=== PATIENT | female | born 1940 | race Caucasian/White ===

== ENCOUNTER 2018-10-13 09:33 | Emergency (ER) | payer OTHER ==
[2018-10-13] MEDS ORDERED: LEVALBUTEROL 1.25 MG/3 ML NEB ONE (09:57)
[2018-10-13] MEDS ORDERED: IPRATROPIUM BROM 0.5MG/2.5ML ONE (09:57)
[2018-10-13] MEDS ORDERED: predniSONE 20 MG TAB ONE (09:58)
[2018-10-13 10:24] LABS: Absolute Lymphocytes (CBC) 1.5 K/uL (0.7-4.9); Basophils % 0.6 % (0-1.3); Hematocrit 44.1 % (36.0-45.0); Lymphocytes % 17.4 % (15.3-44.8); MPV 7.9 fL (7.6-11.3); RBC Red Blood Cell Count 4.26 M/uL (3.86-4.86)
--- NOTE | 2018-10-13 10:33 | RAD REPORT ---
EXAM DESCRIPTION: Monty Single View10/13/2018 10:25 am CLINICAL HISTORY: Shortness of breath COMPARISON: 2018 FINDINGS: Mild bilateral pulmonary opacities. Small to moderate pleural effusions with cardiomegaly Old left clavicular fracture IMPRESSION: CHF
--- NOTE | 2018-10-13 10:45 | EKG ---
Test Date: 2018-10-13 Test Time: 10:12:38 Junior Systems Engineer: KYLE MEASUREMENT RESULTS: Intervals: Rate: 117 OH: 152 QRSD: 100 QT: 344 QTc: 479 [place]: P: 72 OH: 152 QRS: -29 T: 119 INTERPRETIVE STATEMENTS: Sinus tachycardia with frequent and consecutive premature ventricular complexes Left ventricular hypertrophy with repolarization abnormality Abnormal ECG Compared to ECG 05/17/2017 12:50:38 Ventricular premature complex(es) now present Left ventricular hypertrophy now present Sinus rhythm no longer present Myocardial infarct finding no longer present Electronically Signed On 10-13-18 10:45:18 CDT by Bc Resendiz
[2018-10-13 10:50] LABS: Albumin 3.8 g/dL (3.4-5.0); Bilirubin Direct 0.4 mg/dL (0-0.2); Bilirubin Total 1.2 mg/dL (0.2-1.0); Magnesium 1.9 mg/dL (1.8-2.4); Protein, Total 8.1 g/dL (6.4-8.2)
--- NOTE | 2018-10-13 13:56 | ER ---
Nurse's Notes [facility] Name: Dominique Mackenzie Age: 77 yrs Sex: Female : 1940 Arrival Date: 10/13/2018 Time: 09:35 Bed 6 Private MD: Ebonie Diaz Diagnosis: Chronic obstructive pulmonary disease with (acute) exacerbation Presentation: 10/13 09:37 Presenting complaint: Patient states: SOB and nonproductive cough x 1-2 weeks. Denies hb pain/fever. Transition of care: patient was not received from another setting of care. Onset of symptoms is unknown. Risk Assessment: Do you want to hurt yourself or someone else? Patient reports no desire to harm self or others. Care prior to arrival: None. 09:37 Method Of Arrival: Wheelchair hb 09:37 Acuity: AB 2 hb 09:48 Initial Sepsis Screen: Does the patient meet any 2 criteria? No. Patient's initial tw2 sepsis screen is negative. Does the patient have a suspected source of infection? Yes: Productive cough/pneumonia. Triage Assessment: 10:17 General: Appears in no apparent distress. Respiratory: Onset: The symptoms/episode tw2 began/occurred 1-2 weeks ago. Respiratory: the patient has mild shortness of breath. Historical: - Allergies: 09:37 PENICILLINS; hb - Home Meds: 09:37 duloxetine 60 mg Oral cpDR 2 caps once daily [Active]; gabapentin 300 mg Oral cap 4 hb times per day [Active]; omeprazole 40 mg Oral cpDR 1 cap once daily [Active]; Spiriva with HandiHaler inhalation [Active]; Xanax 0.5 mg Oral tab 1 tab nightly [Active]; - PMHx: 09:37 Anxiety; COPD; Depression; neuropathy; hb - PSHx: 09:37 None; hb - Immunization history:: Adult Immunizations up to date. - Social history:: Smoking status: Patient/guardian denies using tobacco. - Ebola Screening: : No symptoms or risks identified at this time. Screenin:48 Abuse screen: Denies threats or abuse. Nutritional screening: No deficits noted. tw2 Tuberculosis screening: No symptoms or risk factors identified. Fall Risk Secondary diagnosis (15 points) impaired mobility. Assessment: 10:15 General: Appears in no apparent distress. slender, Behavior is calm, cooperative, tw2 appropriate for age. Pain: Denies pain. Neuro: Level of Consciousness is awake, alert, obeys commands, Oriented to person, place, time, situation. Cardiovascular: Heart tones S1 S2 Patient's skin is warm and dry. Rhythm is sinus tachycardia. Respiratory: Reports shortness of breath at rest on exertion cough that is non-productive, Airway is patent Respiratory effort is even, unlabored, Respiratory pattern is regular, symmetrical, Breath sounds with wheezes bilaterally. GI: No signs and/or symptoms were reported involving the gastrointestinal system. Abdomen is flat, Bowel sounds present X 4 quads. : No signs and/or symptoms were reported regarding the genitourinary system. EENT: No signs and/or symptoms were reported regarding the EENT system. Derm: No signs and/or symptoms reported regarding the dermatologic system. Musculoskeletal: Range of motion: intact in all extremities. 11:21 Reassessment: Patient appears in no apparent distress at this time. No changes from tw2 previously documented assessment. Patient and/or family updated on plan of care and expected duration. Pain level reassessed. Patient is alert, oriented x 3, equal unlabored respirations, skin warm/dry/pink. 12:21 Reassessment: Patient appears in no apparent distress at this time. No changes from tw2 previously documented assessment. Patient and/or family updated on plan of care and expected duration. Pain level reassessed. Patient is alert, oriented x 3, equal unlabored respirations, skin warm/dry/pink. 13:18 Reassessment: Patient appears in no apparent distress at this time. No changes from tw2 previously documented assessment. Patient and/or family updated on plan of care and expected duration. Pain level reassessed. Patient is alert, oriented x 3, equal unlabored respirations, skin warm/dry/pink. 13:57 Reassessment: provider at bedside at this time. tw2 14:07 Reassessment: Patient appears in no apparent distress at this time. No changes from tw2 previously documented assessment. Patient and/or family updated on plan of care and expected duration. Pain level reassessed. Patient is alert, oriented x 3, equal unlabored respirations, skin warm/dry/pink. Vital Signs: 09:37 BP 135 / 102; Pulse 121; Resp 20; Temp 97.8; Pulse Ox 93% on R/A; Weight 45.36 kg; hb Height 5 ft. 2 in. (157.48 cm); Pain 0/10; 10:18 BP 113 / 61; Pulse 114; Resp 22; Pulse Ox 100% on Nebulizer Mask; tw2 11:19 BP 135 / 80; Pulse 115; Resp 22; Pulse Ox 91% on R/A; tw2 12:21 BP 131 / 71; Pulse 114; Resp 24; Pulse Ox 98% on 2 lpm NC; tw2 13:18 BP 115 / 69; Pulse 118; Resp 23; Pulse Ox 99% on 2 lpm NC; tw2 14:07 BP 125 / 66; Pulse 117; Resp 17; Pulse Ox 98% on 2 lpm NC; tw2 09:37 Body Mass Index 18.29 (45.36 kg, 157.48 cm) hb 11:19 pt placed on o2 via nc at this time, will continue to monitor tw2 ED Course: 09:35 Patient arrived in ED. mr 09:35 Ebonie Diaz MD is Private Physician. mr 09:37 Arm band placed on. hb 09:38 Triage completed. hb 09:45 Bartolo Rosa NP is PHCP. pm1 09:45 Robi Vaughan MD is Attending Physician. pm1 09:48 Jacquelyn Christensen RN is Primary Nurse. tw2 09:48 Placed in gown. Bed in low position. quality assurance monitor chassis on. Pulse ox on. NIBP on. tw2 10:10 Inserted saline lock: 24 gauge in left hand, using aseptic technique. Blood collected. tw2 Missed attempt(s): 22 gauge in right antecubital area. Bleeding controlled, band aid applied, catheter tip intact. 10:15 EKG done, by diagnostics tech. reviewed by Bartolo Rosa NP. at1 10:27 XRAY Chest (1 view) In Process Unspecified. EDMS 14:07 No provider procedures requiring assistance completed. IV discontinued, intact, tw2 bleeding controlled, No redness/swelling at site. Pressure dressing applied. Administered Medications: 10:10 Drug: predniSONE 60 mg Route: PO; tw2 12:27 Follow up: Response: No adverse reaction tw2 10:10 Drug: Xopenex 2.5 mg Route: Inhalation; tw2 10:10 Drug: AtroVENT Aerosol 0.5 mg Route: Inhalation; tw2 Outcome: 13:56 Discharge ordered by . pm1 14:07 Discharged to home via wheelchair, with family. tw2 14:07 Condition: stable 14:07 Discharge instructions given to patient, family, Instructed on discharge instructions, follow up and referral plans. medication usage, Demonstrated understanding of instructions, follow-up care, medications, Prescriptions given X 2. 14:17 Patient left the ED. tw2 Signatures: Dispatcher [employer] EDMS CaleroJuhi mr TaverasPaula, complaint evaluation supervisor EKG Tat1 Bartolo Rosa, FACILITY OPERATIONS MANAGER FACILITY OPERATIONS MANAGER pm1 Grecia Wiggins, RN RN Jacquelyn Burton RN RN tw2
--- NOTE | 2018-10-13 13:56 | EDPHYS ---
Physician Documentation [facility] Name: Dominique Mackenzie Age: 77 yrs Sex: Female : 1940 Arrival Date: 10/13/2018 Time: 09:35 Bed 6 Private MD: Ebonie Diaz ED Physician Robi Vaughan HPI: 10/13 10:48 This 77 yrs old Female presents to ER via Wheelchair with complaints of pm1 Breathing Difficulty. 10:48 The patient has shortness of breath at rest. Onset: The symptoms/episode began/occurred pm1 1 week(s) ago. Duration: The symptoms are continuous. The patient's shortness of breath is aggravated by light activity, is alleviated by inhaler. Associated signs and symptoms: Pertinent positives: non-productive cough, Pertinent negatives: chest pain, fever, nausea, vomiting, sputum. Severity of symptoms: in the emergency department the symptoms are unchanged. The patient has experienced similar episodes in the past, multiple times, today's symptoms are similar, to previous COPD exacerbation . The patient has not recently seen a physician. Historical: - Allergies: 09:37 PENICILLINS; hb - Home Meds: 09:37 duloxetine 60 mg Oral cpDR 2 caps once daily [Active]; gabapentin 300 mg Oral cap 4 hb times per day [Active]; omeprazole 40 mg Oral cpDR 1 cap once daily [Active]; Spiriva with HandiHaler inhalation [Active]; Xanax 0.5 mg Oral tab 1 tab nightly [Active]; - PMHx: 09:37 Anxiety; COPD; Depression; neuropathy; hb - PSHx: 09:37 None; hb - Immunization history:: Adult Immunizations up to date. - Social history:: Smoking status: Patient/guardian denies using tobacco. - Ebola Screening: : No symptoms or risks identified at this time. ROS: 10:48 Constitutional: Negative for fever, chills, and weight loss, Eyes: Negative for injury, pm1 pain, redness, and discharge, ENT: Negative for injury, pain, and discharge, Neck: Negative for injury, pain, and swelling, Cardiovascular: Negative for chest pain, palpitations, and edema. 10:48 Abdomen/GI: Negative for abdominal pain, nausea, vomiting, diarrhea, and constipation, Back: Negative for injury and pain, MS/Extremity: Negative for injury and deformity, Skin: Negative for injury, rash, and discoloration, Neuro: Negative for headache, weakness, numbness, tingling, and seizure. 10:48 Respiratory: Positive for cough, shortness of breath, wheezing. Exam: 10:48 Constitutional: This is a well developed, well nourished patient who is awake, alert, pm1 and in no acute distress. Head/Face: Normocephalic, atraumatic. Eyes: Pupils equal round and reactive to light, extra-ocular motions intact. Lids and lashes normal. Conjunctiva and sclera are non-icteric and not injected. Cornea within normal limits. Periorbital areas with no swelling, redness, or edema. ENT: Nares patent. No nasal discharge, no septal abnormalities noted. Tympanic membranes are normal and external auditory canals are clear. Oropharynx with no redness, swelling, or masses, exudates, or evidence of obstruction, uvula midline. Mucous membranes moist. Neck: Trachea midline, no thyromegaly or masses palpated, and no cervical lymphadenopathy. Supple, full range of motion without nuchal rigidity, or vertebral point tenderness. No Meningismus. 10:48 Cardiovascular: Regular rate and rhythm with a normal S1 and S2. No gallops, murmurs, or rubs. Normal PMI, no JVD. No pulse deficits. 10:48 Abdomen/GI: Soft, non-tender, with normal bowel sounds. No distension or tympany. No guarding or rebound. No evidence of tenderness throughout. Back: No spinal tenderness. No costovertebral tenderness. Full range of motion. Skin: Warm, dry with normal turgor. Normal color with no rashes, no lesions, and no evidence of cellulitis. MS/ Extremity: Pulses equal, no cyanosis. Neurovascular intact. Full, normal range of motion. 10:48 Chest/axilla: Inspection: normal, Palpation: is normal. 10:48 Respiratory: the patient does not display signs of respiratory distress, Respirations: normal, Breath sounds: wheezing: that is mild, is heard in the right upper lobe and left upper lobe. 10:48 Neuro: Orientation: is normal, Motor: is normal, moves all fours. Vital Signs: 09:37 BP 135 / 102; Pulse 121; Resp 20; Temp 97.8; Pulse Ox 93% on R/A; Weight 45.36 kg; hb Height 5 ft. 2 in. (157.48 cm); Pain 0/10; 10:18 BP 113 / 61; Pulse 114; Resp 22; Pulse Ox 100% on Nebulizer Mask; tw2 11:19 BP 135 / 80; Pulse 115; Resp 22; Pulse Ox 91% on R/A; tw2 12:21 BP 131 / 71; Pulse 114; Resp 24; Pulse Ox 98% on 2 lpm NC; tw2 13:18 BP 115 / 69; Pulse 118; Resp 23; Pulse Ox 99% on 2 lpm NC; tw2 14:07 BP 125 / 66; Pulse 117; Resp 17; Pulse Ox 98% on 2 lpm NC; tw2 09:37 Body Mass Index 18.29 (45.36 kg, 157.48 cm) hb 11:19 pt placed on o2 via nc at this time, will continue to monitor tw2 MDM: 09:50 Patient medically screened. pm1 11:32 Data reviewed: vital signs. pm1 10/13 09:56 Order name: Basic Metabolic Panel; Complete Time: 10:57 pm10/13 09:56 Order name: CBC with Diff pm10/13 09:56 Order name: LFT's; Complete Time: 10:57 pm1 10/13 09:56 Order name: Magnesium; Complete Time: 10:57 pm1 10/13 09:56 Order name: XRAY Chest (1 view); Complete Time: 10:57 pm1 10/13 09:56 Order name: EKG; Complete Time: 09:58 pm1 10/13 09:56 Order name: Cardiac monitoring; Complete Time: 10:15 pm10/13 09:56 Order name: EKG - Nurse/Tech; Complete Time: 10:15 pm10/13 09:56 Order name: IV Saline Lock; Complete Time: 10:15 pm10/13 09:56 Order name: Labs collected and sent; Complete Time: 10:15 pm10/13 09:56 Order name: O2 Per Protocol; Complete Time: 10:15 pm1 10/13 09:56 Order name: O2 Sat Monitoring; Complete Time: 10:15 pm1 Administered Medications: 10:10 Drug: predniSONE 60 mg Route: PO; tw2 12:27 Follow up: Response: No adverse reaction tw2 10:10 Drug: Xopenex 2.5 mg Route: Inhalation; tw2 10:10 Drug: AtroVENT Aerosol 0.5 mg Route: Inhalation; tw2 Disposition: 10/14 07:47 Co-signature as Attending Physician, Robi Vaughan MD I agree with the assessment and il plan of care. Disposition: 10/13/18 13:56 Discharged to Home. Impression: Chronic obstructive pulmonary disease with (acute) exacerbation. - Condition is Stable. - Discharge Instructions: Chronic Obstructive Pulmonary Disease, How to Use an Inhaler, Chronic Obstructive Pulmonary Disease Exacerbation. - Prescriptions for Prednisone 20 mg Oral Tablet - take 3 tablet by ORAL route once daily for 5 days; 15 tablet. Albuterol Sulfate 90 mcg/actuation - inhale 1-2 puff by INHALATION route every 4-6 hours; 1 Inhaler. - Medication Reconciliation Form, Thank You Letter, Antibiotic Education, Prescription Opioid Use form. - Follow up: Emergency Department; When: As needed; Reason: Worsening of condition. Follow up: Private Physician; When: 2 - 3 days; Reason: Recheck today's complaints, Continuance of care, Re-evaluation by your physician. - Problem is new. - Symptoms have improved. Signatures: Dispatcher [employer] EDMS Bartolo Rosa NP FOLLOW UP MANAGER pm1 Grecia Wiggins RN RN Jacquelyn Christensen RN RN tw2 Robi Vaughan MD MD wa Corrections: (The following items were deleted from the chart) 10/13 14:17 13:56 10/13/2018 13:56 Discharged to Home. Impression: Chronic obstructive pulmonary tw2 disease with (acute) exacerbation. Condition is Stable. Forms are Medication Reconciliation Form, Thank You Letter, Antibiotic Education, Prescription Opioid Use. Follow up: Emergency Department; When: As needed; Reason: Worsening of condition. Follow up: Private Physician; When: 2 - 3 days; Reason: Recheck today's complaints, Continuance of care, Re-evaluation by your physician. Problem is new. Symptoms have improved. pm1
[2018-10-13 14:29] VITALS: TEMP 97.8
[2018-10-13 14:36] VITALS: BP 125/66; O2SAT 98
== END 2018-10-13 14:17 | disposition home or self-care (01) ==
LOC: ER 09:33
DX: J44.1 Chronic obstructive pulmonary disease with (acute) exacerbation (principal); F41.9 Anxiety disorder, unspecified; F32.9 Major depressive disorder, single episode, unspecified; Z88.0 Allergy status to penicillin
CPT/HCPCS: 36415; 71045; 80048; 80076; 83735; 85025; 93005; 99285; J7512

== ENCOUNTER 2018-10-16 21:00 | Inpatient (IN) | payer OTHER ==
[2018-10-16 21:58] LABS: Arterial Blood Carboxyhemoglob 2.6 % (0-1.5); Blood Gas Oxyhemoglobin 92.2 % (94-97); Blood O2 Saturation 95.3 % (92-98.5)
[2018-10-16] MEDS ORDERED: LORazepam 2 MG/ML VIAL ONE (22:03)
[2018-10-16 23:02] LABS: Absolute Lymphocytes (CBC) 0.6 K/uL (0.7-4.9); Basophils % 0.1 % (0-1.3); Hematocrit 43.4 % (36.0-45.0); MPV 8.4 fL (7.6-11.3); RBC Red Blood Cell Count 4.09 M/uL (3.86-4.86)
[2018-10-16 23:03] LABS: Protime INR 1.6
[2018-10-16] MEDS ORDERED: NA CHLORIDE 0.9% 1,000 ML ONE (23:25)
[2018-10-17] MEDS ORDERED: CYANOCOBALAMIN 1000MCG/ML INJ ONE (00:07)
[2018-10-17 00:10] LABS: Albumin 3.7 g/dL (3.4-5.0); Bilirubin Direct 0.9 mg/dL (0-0.2); Bilirubin Total 1.5 mg/dL (0.2-1.0); Magnesium 2.6 mg/dL (1.8-2.4); Potassium 4.7 mmol/L (3.5-5.1); Protein, Total 7.5 g/dL (6.4-8.2); Troponin (Emerg Dept Use Only) 0.05 ng/mL (0.0-0.045)
[2018-10-17] MEDS ORDERED: NA CHLORIDE 0.9% 250 ML ONE (00:19)
[2018-10-17 01:14] LABS: Blood Morphology Comment NOTED (NOT SEEN); Macrocytosis 1+; Polychromasia 2+; Target Cells 1+; Urine White Blood Cell Casts OK
[2018-10-17 01:19] LABS: Platelet Estimate ADEQ
--- NOTE | 2018-10-17 02:42 | ER ---
Nurse's Notes [facility] Name: Dominique Mackenzie Age: 78 yrs Sex: Female : 1940 Arrival Date: 10/16/2018 Time: 21:01 Bed 27 Private MD: Diagnosis: Unspecified combined systolic (congestive) and diastolic (congestive) heart failure Presentation: 10/16 21:02 Presenting complaint: EMS states: Pt was here Saturday for Difficulty of Breathing, was ca1 diagnosed with Mild CHF. Today Difficulty of breathing has gotten worse. Pt also has bilateral leg swelling which was not present on Saturday. Transition of care: patient was not received from another setting of care. Onset of symptoms was October 16, 2018. Risk Assessment: Do you want to hurt yourself or someone else? Patient reports no desire to harm self or others. Initial Sepsis Screen: Does the patient meet any 2 criteria? RR > 20 per min. HR > 90 bpm. Does the patient have a suspected source of infection? Yes: Productive cough/pneumonia. Care prior to arrival: Medication(s) given: Albuterol Neb x 1, Atrovent Neb x 1, Med neb given. 21:02 Method Of Arrival: EMS: [facility] ca1 21:02 Acuity: AB 2 ca1 Triage Assessment: 21:14 General: Appears. ca1 21:30 General: Appears distressed, uncomfortable, Behavior is anxious. Pain: Denies pain. lc1 Respiratory: Airway is patent Trachea midline Respiratory effort is labored, gasping, pursed lip, using tripod position, Respiratory pattern is tachypnea Breath sounds are diminished bilaterally. Breath sounds with wheezes bilaterally. 10/17 03:39 Respiratory: Onset: The symptoms/episode began/occurred today. lc1 Historical: - Allergies: 10/16 21:13 PENICILLINS; ca1 - Home Meds: 21:13 duloxetine 60 mg Oral cpDR 2 caps once daily [Active]; omeprazole 40 mg Oral cpDR 1 cap ca1 once daily [Active]; Spiriva with HandiHaler inhalation [Active]; prednisone 20 mg Oral tab once daily [Active]; nitrofurantoin macrocrystal 100 mg Oral cap 1 cap once daily [Active]; Trelegy [Active]; Ventolin Nebulizer [Active]; - PMHx: 21:13 Anxiety; COPD; Depression; neuropathy; ca1 - Immunization history:: Adult Immunizations up to date. - Social history:: Smoking status: Patient uses tobacco products, smokes one-half pack cigarettes per day. - Ebola Screening: : Patient negative for fever greater than or equal to 101.5 degrees Fahrenheit, and additional compatible Ebola Virus Disease symptoms Patient denies exposure to infectious person Patient denies travel to an Ebola-affected area in the 21 days before illness onset No symptoms or risks identified at this time. Screenin:30 Abuse screen: Denies threats or abuse. Nutritional screening: No deficits noted. lc1 Tuberculosis screening: No symptoms or risk factors identified. Fall Risk None identified. Assessment: 21:30 General: Appears distressed, slender, well groomed, Behavior is cooperative, anxious, lc1 Reports feeling ill for > 3 days. 22:17 Pain: Denies pain. Neuro: No deficits noted. Cardiovascular: Rhythm is sinus lc1 tachycardia. Respiratory: Reports shortness of breath since saturday cough that is productive, labored breathing since Saturday. Was seen in ED, nebs given at that time along with steroids, followed up with Outside provider and obtained nebulizer that she has been using at home Airway is patent Respiratory effort is labored, gasping, pursed lip, using tripod position, Respiratory pattern is tachypnea Breath sounds are diminished bilaterally. the patient has severe shortness of breath. GI: No deficits noted. : No deficits noted. EENT: No deficits noted. Derm: Skin is bilateral legs are edematous, pale, feet are blue and cold to the touch with weak pedal pulses. patients daughter reports this just started today. Musculoskeletal: No deficits noted. 23:15 Reassessment: No changes from previously documented assessment. Patient and/or family lc1 updated on plan of care and expected duration. Pain level reassessed. Patient is alert, oriented x 3, equal unlabored respirations, skin warm/dry/pink. Patient states feeling better. bipap in place, pt resting more comfortably. 10/17 00:15 Reassessment: No changes from previously documented assessment. Patient and/or family lc1 updated on plan of care and expected duration. Pain level reassessed. Patient is alert, oriented x 3, equal unlabored respirations, skin warm/dry/pink. resting at this time, daughter remains at bedside, bipap in place. 01:15 Reassessment: No changes from previously documented assessment. Patient and/or family lc1 updated on plan of care and expected duration. Pain level reassessed. Patient is alert, oriented x 3, equal unlabored respirations, skin warm/dry/pink. bipap remains in place, patient resting, ivf infusing. 02:15 Reassessment: No changes from previously documented assessment. Patient and/or family lc1 updated on plan of care and expected duration. Pain level reassessed. Patient is alert, oriented x 3, equal unlabored respirations, skin warm/dry/pink. Patient states symptoms have improved. 03:15 Reassessment: No changes from previously documented assessment. Patient and/or family lc1 updated on plan of care and expected duration. Pain level reassessed. Patient is alert, oriented x 3, equal unlabored respirations, skin warm/dry/pink. bipap remains in place. Vital Signs: 10/16 21:14 BP 116 / 67; Pulse 118; Resp 24 S; Temp 97.5(O); Pulse Ox 98% on R/A; Weight 47.63 kg ca1 (R); Height 5 ft. 2 in. (157.48 cm) (R); Pain 2/10; 22:30 BP 118 / 86; Pulse 111; Resp 16; Pulse Ox 91% on BiPAP; 1 23:00 BP 108 / 53; Pulse 113; Resp 18; Pulse Ox 100% on BiPAP; [facility] 10/17 00:00 BP 134 / 87; Pulse 112; Resp 18; Pulse Ox 100% on BiPAP; [facility] 01:00 BP 130 / 75; Pulse 111; Resp 18; Pulse Ox 100% on BiPAP; [facility] 02:00 BP 125 / 85; Pulse 107; Resp 21; Pulse Ox 100% on BiPAP; [facility] 03:00 BP 117 / 87; Pulse 112; Resp 24; Pulse Ox 100% on BiPAP; [facility] 04:00 BP 127 / 91; Pulse 117; Resp 22; Pulse Ox 97% on 2 lpm NC; 1 10/16 21:14 Body Mass Index 19.20 (47.63 kg, 157.48 cm) ca1 ED Course: 10/16 21:01 Patient arrived in ED. ds1 21:01 Sofia Loya, ACOSTA is Primary Nurse. ca1 21:09 Triage completed. ca1 21:09 Velia Fernandez, ARLETTE [facility]. snw 21:09 Jensen Crain MD is Attending Physician. snw 21:10 Michael Thomas MD is Attending Physician. snw 21:14 Arm band placed on right wrist. ca1 21:15 Oxygen administration via nasal cannula \T\ 2L/min O2 via arrived via EMS on Room air, lc1 patient with SOB so oxygen placed Response to oxygen therapy:. 21:30 Missed attempt(s): 22 gauge in left antecubital area. Bleeding controlled, band aid lc1 applied, catheter tip intact. 21:30 Oxygen administration administration via face mask O2 via bipap placed per Provider lc1 order. 21:37 XRAY Chest (1 view) In Process Unspecified. EDMS 21:59 US LE Arterial Bilateral In Process Unspecified. EDMS 22:00 Inserted saline lock: 24 gauge in left antecubital area, using aseptic technique. ca1 22:17 Radiology exam delayed due to lab results not completed at this time. (BUN/Creatinine) vm2 IV insertion attempt and/or patient not having appropriate IV at this time. 22:30 Patient has correct armband on for positive identification. Bed in low position. Side lc1 rails up X2. Adult w/ patient. radiation monitor on. Pulse ox on. NIBP on. Door closed. Noise minimized. Lights dimmed. 22:30 No provider procedures requiring assistance completed. lc1 22:59 Radiology exam delayed due to lab results not completed at this time. (BUN/Creatinine). vm2 23:32 Inserted saline lock: 22 gauge in left upper arm, using aseptic technique. lt1 23:46 Radiology exam delayed due to lab results not completed at this time. (BUN/Creatinine). vm2 08/ 01:33 CT completed. Pt tolerated procedure poorly. Patient moved to CT via stretcher. Patient eh moved back from CT. 02:20 CT Aorta for Dissection In Process Unspecified. EDMS 02:40 Arnol Vivar DO is Hospitalizing Provider. snw 03:30 Patel cath inserted, using sterile technique, 18 Fr., by co, balloon inflated, to lc1 gravity drainage, urine specimen collected. returned cloudy urine. Patient tolerated well. 03:38 Urine Microscopic Only Sent. lc1 03:38 Urine Dipstick--Ancillary (enter results) Sent. 1 03:45 Oxygen administration via nasal cannula patient anxious and pulling bipap off face, 1 provider informed, order obtained for Ativan to help her relax. 03:50 Patient admitted, IV remains in place. 1 03:55 BIPAP Sent. [facility] 04:00 Resting quietly. 1 Administered Medications: 10/16 22:08 Drug: Ativan 1 mg Route: IVP; Site: left antecubital; 1 22:48 Follow up: Response: No adverse reaction; Anxiety decreased 1 23:58 Drug: NS 0.9% 1000 ml Route: IV; Rate: 75 ml/hr; Site: left upper arm; ca1 10/17 02:53 Follow up: IV Status: Infusion continued 1 00:17 Drug: NS 0.9% 250 ml Route: IV; Rate: bolus; Site: left upper arm; lc1 02:52 Follow up: Response: No adverse reaction; IV Status: Completed infusion 1 00:31 Drug: Cyanocobalamin 1000 mcg Route: IM; Site: left vastus lateralis; 1 02:54 Follow up: Response: No adverse reaction 1 03:49 Drug: LORazepam 1 mg Route: IVP; Site: left upper arm; lc1 03:58 Follow up: Response: Anxiety decreased [facility] Outcome: 02:40 Decision to Hospitalize by Provider. snw 03:39 Admitted to [facility] 03:39 Condition: stable 03:39 Instructed on the need for admit. 04:12 Admitted to Med/surg accompanied by nurse, via stretcher, room 205, with oxygen, Report [address] [facility] 05:32 Patient left the ED. [facility] Signatures: Dispatcher [employer] EDMS Velia Fernandez, MARKLOGIC DEVELOPER-C [employer] DEVELOPER-Csnw Jose Nicole Demi ds1 Calhoun, Lisa lc1 Ivet Aguilera Cheryl, RN RN Sonali Doe lt1 Corrections: (The following items were deleted from the chart) 10/16 21:16 21:14 BP 116 / 67; Pulse 118bpm; Resp 24bpm; Spontaneous; Pulse Ox 98% RA; Temp 97.5F ca1 Oral; ca1 22:44 22:17 General: Appears distressed, slender, well groomed, Behavior is cooperative, lc1 anxious, Reports lc1 22:46 22:17 General: Appears distressed, slender, well groomed, Behavior is cooperative, lc1 anxious, Reports lc1 22:58 22:17 Derm: Skin is bilateral legs are edematous, pale, feet are blue and cold to the lc1 touch with weak pedal pulses. patients daughter reports this just started today lc1
--- NOTE | 2018-10-17 02:43 | EDPHYS ---
Physician Documentation [facility] Name: Dominique Mackenzie Age: 78 yrs Sex: Female : 1940 Arrival Date: 10/16/2018 Time: 21:01 Bed 27 Private MD: ED Physician Michael Thomas HPI: 10/16 22:46 This 78 yrs old Female presents to ER via EMS with complaints of Breathing snw Difficulty. 22:46 The patient has shortness of breath at rest. Onset: The symptoms/episode began/occurred snw 1 week(s) ago, and became persistent. Duration: The symptoms are continuous, and are steadily getting worse. Associated signs and symptoms: Pertinent positives: cough, swelling. Severity of symptoms: At their worst the symptoms were moderate in the emergency department the symptoms are unchanged. The patient has experienced similar episodes in the past. The patient has been recently seen by a physician: the patient's primary care provider, Dr. Diaz. Historical: - Allergies: 21:13 PENICILLINS; ca1 - Home Meds: 21:13 duloxetine 60 mg Oral cpDR 2 caps once daily [Active]; omeprazole 40 mg Oral cpDR 1 cap ca1 once daily [Active]; Spiriva with HandiHaler inhalation [Active]; prednisone 20 mg Oral tab once daily [Active]; nitrofurantoin macrocrystal 100 mg Oral cap 1 cap once daily [Active]; Trelegy [Active]; Ventolin Nebulizer [Active]; - PMHx: 21:13 Anxiety; COPD; Depression; neuropathy; ca1 - Immunization history:: Adult Immunizations up to date. - Social history:: Smoking status: Patient uses tobacco products, smokes one-half pack cigarettes per day. - Ebola Screening: : Patient negative for fever greater than or equal to 101.5 degrees Fahrenheit, and additional compatible Ebola Virus Disease symptoms Patient denies exposure to infectious person Patient denies travel to an Ebola-affected area in the 21 days before illness onset No symptoms or risks identified at this time. ROS: 22:44 Eyes: Negative for injury, pain, redness, and discharge, ENT: Negative for injury, snw pain, and discharge, Neck: Negative for injury, pain, and swelling, Cardiovascular: Negative for chest pain, palpitations, and edema. 22:44 Abdomen/GI: Negative for abdominal pain, nausea, vomiting, diarrhea, and constipation, Back: Negative for injury and pain, : Negative for injury, bleeding, discharge, and swelling. 22:44 Skin: Negative for injury, rash, and discoloration, Neuro: Negative for headache, weakness, numbness, tingling, and seizure. 22:44 Constitutional: Positive for body aches, malaise, poor PO intake. 22:44 Respiratory: Positive for shortness of breath, on exertion. 22:44 MS/extremity: Positive for swelling, blue coloration. 22:44 Psych: Positive for anxiety. Exam: 22:42 Eyes: Pupils equal round and reactive to light, extra-ocular motions intact. Lids and snw lashes normal. Conjunctiva and sclera are non-icteric and not injected. Cornea within normal limits. Periorbital areas with no swelling, redness, or edema. 22:42 Neck: Trachea midline, no thyromegaly or masses palpated, and no cervical lymphadenopathy. Supple, full range of motion without nuchal rigidity, or vertebral point tenderness. No Meningismus. Chest/axilla: Normal chest wall appearance and motion. Nontender with no deformity. No lesions are appreciated. 22:42 Abdomen/GI: Soft, non-tender, with normal bowel sounds. No distension or tympany. No guarding or rebound. No evidence of tenderness throughout. Back: No spinal tenderness. No costovertebral tenderness. Full range of motion. MS/ Extremity: Pulses equal, no cyanosis. Neurovascular intact. Full, normal range of motion. Neuro: Awake and alert, GCS 15, oriented to person, place, time, and situation. Cranial nerves II-XII grossly intact. Motor strength 5/5 in all extremities. Sensory grossly intact. Cerebellar exam normal. Normal gait. Psych: Awake, alert, with orientation to person, place and time. Behavior, mood, and affect are within normal limits. 22:42 Constitutional: The patient appears alert, awake, anxious, frail, dry, lower extremities with edema and blue coloration, no temperature discrepancy noted 22:42 Head/face: mild circumoral cyanosis. 22:42 ENT: Mouth: Oral mucosa: dry. 22:42 Cardiovascular: Rate: tachycardic, Heart sounds: normal, Edema: pedal edema, that is moderate. 22:42 Respiratory: the patient does not display signs of respiratory distress, Respirations: normal, Breath sounds: are clear throughout, Respiratory rate: 24 22:42 Skin: as noted. Vital Signs: 21:14 BP 116 / 67; Pulse 118; Resp 24 S; Temp 97.5(O); Pulse Ox 98% on R/A; Weight 47.63 kg ca1 (R); Height 5 ft. 2 in. (157.48 cm) (R); Pain 2/10; 22:30 BP 118 / 86; Pulse 111; Resp 16; Pulse Ox 91% on BiPAP; lc1 23:00 BP 108 / 53; Pulse 113; Resp 18; Pulse Ox 100% on BiPAP; 1 10/17 00:00 BP 134 / 87; Pulse 112; Resp 18; Pulse Ox 100% on BiPAP; 1 01:00 BP 130 / 75; Pulse 111; Resp 18; Pulse Ox 100% on BiPAP; 1 02:00 BP 125 / 85; Pulse 107; Resp 21; Pulse Ox 100% on BiPAP; [facility] 03:00 BP 117 / 87; Pulse 112; Resp 24; Pulse Ox 100% on BiPAP; 1 04:00 BP 127 / 91; Pulse 117; Resp 22; Pulse Ox 97% on 2 lpm NC; [facility] 10/16 21:14 Body Mass Index 19.20 (47.63 kg, 157.48 cm) ca1 MDM: 10/16 21:20 Patient medically screened. snw 10/17 01:44 Data reviewed: vital signs, nurses notes, EMS record, old medical records, lab test snw result(s), EKG, radiologic studies. Awaiting: CT scan results. 02:38 Data interpreted: Pulse oximetry: on room air is 95 %. on arrival. Counseling: I had a snw detailed discussion with the patient and/or guardian regarding: the historical points, exam findings, and any diagnostic results supporting the discharge/admit diagnosis, the presence of at least one elevated blood pressure reading (>120/80) during this emergency department visit, lab results, radiology results, the need for further work-up and treatment in the hospital. Physician consultation: Arnol Vivar DO was called at 02:39, was contacted at 02:39, regarding admission, to the telemetry unit. 10/16 21:20 Order name: Basic Metabolic Panel; Complete Time: 00:13 snw 10/16 21:20 Order name: CBC with Diff; Complete Time: 01:24 snw 10/16 21:20 Order name: LFT's; Complete Time: 00:14 snw 10/16 21:20 Order name: Magnesium; Complete Time: 00:14 snw 10/16 21:20 Order name: NT PRO-BNP; Complete Time: 00:14 snw 10/16 21:20 Order name: PT-INR; Complete Time: 23:21 snw 10/16 21:20 Order name: Troponin (emerg Dept Use Only); Complete Time: 00:14 snw 10/16 21:20 Order name: Blood Culture Adult (2) snw 10/16 21:20 Order name: ABG; Complete Time: 22:04 snw 10/16 23:16 Order name: CBC Smear Scan; Complete Time: 01:24 EDMS 10/17 02:53 Order name: Lipase; Complete Time: 04:32 snw 10/17 03:26 Order name: Urine Dipstick--Ancillary (enter results) cm6 10/17 03:27 Order name: Urine Microscopic Only cm6 10/17 04:10 Order name: Urine Microscopic Only; Complete Time: 04:32 EDMS 10/16 21:20 Order name: US LE Arterial Bilateral; Complete Time: 16:19 snw 10/16 21:20 Order name: XRAY Chest (1 view); Complete Time: 16:19 snw 10/16 21:20 Order name: EKG; Complete Time: 21:21 snw 10/16 21:20 Order name: Cardiac monitoring; Complete Time: 21:38 snw 10/16 21:20 Order name: EKG - Nurse/Tech; Complete Time: 21:38 snw 10/16 21:20 Order name: IV Saline Lock; Complete Time: 23:09 snw 10/16 21:20 Order name: Labs collected and sent; Complete Time: 23:09 snw 10/16 21:20 Order name: O2 Per Protocol; Complete Time: 21:38 snw 10/16 21:20 Order name: BIPAP snw 10/16 21:51 Order name: CT Aorta for Dissection; Complete Time: 16:19 snw 10/17 04:11 Order name: Urine Dipstick-Ancillary; Complete Time: 04:32 EDMS 10/16 21:20 Order name: O2 Sat Monitoring; Complete Time: 21:38 snw 10/17 00:31 Order name: Patel; Complete Time: 03:37 snw Administered Medications: 10/16 22:08 Drug: Ativan 1 mg Route: IVP; Site: left antecubital; lc1 22:48 Follow up: Response: No adverse reaction; Anxiety decreased lc1 23:58 Drug: NS 0.9% 1000 ml Route: IV; Rate: 75 ml/hr; Site: left upper arm; ca1 10/17 02:53 Follow up: IV Status: Infusion continued lc1 00:17 Drug: NS 0.9% 250 ml Route: IV; Rate: bolus; Site: left upper arm; lc1 02:52 Follow up: Response: No adverse reaction; IV Status: Completed infusion lc1 00:31 Drug: Cyanocobalamin 1000 mcg Route: IM; Site: left vastus lateralis; lc1 02:54 Follow up: Response: No adverse reaction lc1 03:49 Drug: LORazepam 1 mg Route: IVP; Site: left upper arm; lc1 03:58 Follow up: Response: Anxiety decreased lc1 Disposition: 07:00 Co-signature as Attending Physician, Michael Thomas MD Available for consultation at ps1 all times . Disposition: 10/17/18 02:40 Hospitalization ordered by Arnol Vivar for Inpatient Admission. Preliminary diagnosis is Unspecified combined systolic (congestive) and diastolic (congestive) heart failure. - Bed requested for Telemetry/MedSurg (Inpatient). - Status is Inpatient Admission. lc1 - Condition is Stable. - Problem is an acute exacerbation. - Symptoms have worsened. UTI on Admission? No Signatures: Dispatcher [facility] Desiree Scruggs RN RN mw Velia Fernandez, [employer]FFER-Csnw Sandra Moscoso lc1 Michael Thomas MD MD ps1 Sofia Loya RN RN ca1 Corrections: (The following items were deleted from the chart) 03:05 02:40 Hospitalization Ordered by Arnol Vivar DO for Inpatient Admission. Preliminary diagnosis is Unspecified combined systolic (congestive) and diastolic (congestive) heart failure. Bed requested for Telemetry/MedSurg (Inpatient). Status is Inpatient Admission. Condition is Stable. Problem is an acute exacerbation. Symptoms have worsened. UTI on Admission? No. snw 05:32 03:05 10/17/2018 02:40 Hospitalization Ordered by Arnol Vivar DO for Inpatient lc1 Admission. Preliminary diagnosis is Unspecified combined systolic (congestive) and diastolic (congestive) heart failure. Bed requested for Telemetry/MedSurg (Inpatient). Status is Inpatient Admission. Condition is Stable. Problem is an acute exacerbation. Symptoms have worsened. UTI on Admission? No. mw
--- NOTE | 2018-10-17 03:24 | P.HP ---
Certification for Inpatient Patient admitted to: Inpatient With expected LOS: >2 Midnights Patient will require the following post-hospital care: Half-Way Practitioner: I am a practitioner with admitting privileges, knowledge of patient current condition, hospital course, and medical plan of care. Services: Services provided to patient in accordance with Admission requirements found in Title 42 Section 412.3 of the Code of Federal Regulations Patient History Date of Service: 10/17/18 Primary Care Provider: Dr. Diaz; Pulmonary-Dr. Akbar Reason for admission: Shortness of breath History of Present Illness: 78-year-old female presented to the emergency room with shortness of breath. Patient was brought in by daughter. Patient with underlying history of COPD, depression with anxiety, GERD, alcohol/ tobacco abuse. Daughter reports the patient was seen early this past week for shortness of breath. She was diagnose with COPD exacerbation and sent home with oral steroids. Since that time she has had increasing shortness of breath. She has been very weak. She has had poor intake. Yesterday was her birthday. Patient continues to drink alcohol regularly. No mention of cough, chest pain. She came to the ER for further evaluation. In the ER patient evaluated. Patient appeared tachypneic and tachycardic initially. Patient required BiPAP in the emergency room. Initial ABG showed a pH is 7.4 with a pCO2 of 33 an O2 of 86. On lab white count 10, hemoglobin 14.8 with a platelet count of 225. Sodium 127, potassium 5.7. BUN of 54, creatinine 1.75 with a GFR of 28. Glucose 121. Total bilirubin 1.5, AST 792, ALT of 373. Troponin 0.[address] [place] [address] angiogram showed diffuse emphysema with small bilateral pleural effusion. No evidence of pulmonary embolism or aortic aneurysm or dissection noted. Mild cardiomegaly noted. Reflux of contrast into the hepatic vein likely indicates right heart strain. Patient with history of remote cholecystectomy and appendectomy. PVD noted as well. Due to nature of her symptoms the patient was given IV fluid bolus in the emergency room. Patient was admitted for further evaluation and treatment. When I saw the patient ER, she was on BiPAP. She was alert but with increased fatigue. Allergies Penicillins Allergy (Intermediate, Verified 02/11/13 17:49) Itching/Hives/Rash Home medications list reviewed: Yes Home Medications: Tiotropium [Spiriva Handihaler*] 18 mcg IH DAILY 03/09/12 ALPRAZolam [Xanax*] 0.5 mg PO BIDP PRN 05/10/13 Duloxetine [Cymbalta *] 60 mg PO BEDTIME 05/10/13 Gabapentin [Gralise] 300 mg PO QID 04/20/16 Melatonin 2 tab PO BEDTIME 04/20/16 B12/Levomefolate Calcium/B-6 [Folbic Rf Tablet] 1 each PO DAILY #30 tablet 04/21 Magnesium Oxide [Mag 0X*] 400 mg PO BID #60 tab 04/21/16 Pantoprazole [Protonix Tab*] 40 mg PO DAILYAC #30 tab 04/21/16 Thiamine HCl 100 mg PO DAILY #30 tablet 04/21/16 Albuterol Sulfate [Proair Hfa] 8.5 gm IH TID PRN #1 hfa.aer.ad 10/05/16 Diphenox/Atropine [Lomotil*] 1 tab PO QID PRN #15 tab 10/05/16 Ensure Enlive 237 ml PO TID #90 can 10/05/16 Nicotine [Nicoderm*] 21 mg TD DAILY #30 10/05/16 metroNIDAZOLE [Flagyl] 500 mg PO Q8H #42 tablet 10/05/16 predniSONE [Prednisone*] 20 mg PO SEECOM #15 tab 10/05/16 traMADol HCL [Ultram*] 50 mg PO TID PRN #15 tab 10/05/16 - Past Medical/Surgical History Diabetic: No -: COPD -: Depression with anxiety -: History of breast cancer -: Neuropathy -: GERD -: Tobacco abuse -: Hypokalemia -: Alcohol abuse -: Cholecystectomy -: Appendectomy -: Right mastectomy Psychosocial/ Personal History: Patient is a , she has 3 children. She lives by herself. - Family History Mother -: Other (see notes) Notes: Dementia and Alzheimers - Social History Smoking Status: Heavy Tobacco smoker (>10 cigarettes/day) Smoking therapy provided: No Patient receptive to therapy: No Alcohol use: Yes CD- Drugs: No Caffeine use: Yes Place of Residence: Home Review of Systems General: Weakness, Malaise, As per HPI Eyes: Unremarkable ENT: Unremarkable Respiratory: Shortness of Breath, Wheezing, As per HPI Cardiovascular: Edema, As per HPI Gastrointestinal: Unremarkable Genitourinary: Unremarkable Musculoskeletal: Pedal edema, As per HPI Integumentary: Unremarkable Neurological: Weakness, As per HPI Lymphatics: Unremarkable Physical Examination - Physical Exam General: Alert, Cooperative, Mild distress HEENT: Atraumatic, Normocephalic, Mucous membr. moist/pink Neck: Supple, No Thyromegaly Respiratory: Crackles/rales (Crackles to the bases), Expiratory wheezes ( Bilateral), Inspiratory wheezes (Bilateral) Cardiovascular: Abnormal pulses (Sinus tachycardia) Gastrointestinal: Normal bowel sounds, Soft and benign, Non-distended, No ascites, No tenderness, No masses, No rebound, No guarding Musculoskeletal: No erythema, No tenderness, No warmth Integumentary: No tenderness/swelling, No erythema, No warmth, No cyanosis Neurological: Normal speech, Normal strength at 5/5 x4 extr, Normal tone, Normal affect Other Physical/Emotional Findings: Patient currently on BiPAP. Arousable to pain. - Studies Laboratory Data (last 24 hrs) 10/16/18 22:42: PT 18.5 H, INR 1.60 10/16/18 22:42: WBC 10.0, Hgb 14.8, Hct 43.4, Plt Count 225 D 10/16/18 22:42: Sodium 127 L, Potassium 4.7, BUN 54 H D, Creatinine 1.75 H, Glucose 121 H, Magnesium 2.6 H D, Total Bilirubin 1.5 H, AST 792 H* D, ALT 373 H * D, Alkaline Phosphatase 90 Assessment and Plan - Plan Impression: Shortness of breath with noted bilateral pleural effusion secondary to acute on chronic diastolic CHF exacerbation complicated with COPD exacerbation Elevated liver function complicated with alcohol abuse likely related to CHF Acute renal injury with hyponatremia etiology unknown GERD Depression with anxiety Alcohol abuse Tobacco abuse Plan: Shortness of breath with noted bilateral pleural effusion secondary to acute on chronic diastolic CHF exacerbation complicated with COPD exacerbation: Patient will be admitted for further evaluation and treatment. Patient currently on BiPAP. Will continue with BiPAP and wean off to maintain sats above 90%. Will continue with COPD treatment including Brovana/albuterol/Atrovent and Spiriva. Will provide IV Solu-Medrol. Will consult pulmonology to further evaluate and address. Await further recommendation. Concerning her CHF we will hold IV fluids at this time. She was given a bolus in the emergency room. Will order echocardiogram to further evaluate. Cardiology consulted to further address. Mild elevation in troponin likely related to his CHF exacerbation. Will provide DVT prophylaxis-Lovenox. Recheck chest x-ray. Obtain and monitor lab closely. Anticipate discharge in the next 3-5 days pending clinical improvement. Patient may require skilled placement at discharge. Daytime hospitalist team will continue her care. Elevated liver function complicated with alcohol abuse likely related to CHF: Patient drinks alcohol regularly. Will check ammonia level along with alcohol level. Will obtain urine drug screen as well. Increased LFT likely related to her CHF. Will obtain abdominal ultrasound to further evaluate. Acute renal injury with hyponatremia etiology unknown: Etiology unknown. Patient given IV fluid bolus in the emergency room. Will hold fluids at this time due to her CHF. Will obtain urine sodium, urine osmolalities. Nephrology consulted to further evaluate and address. Will consider low-dose IV fluids. GERD: Continue with Protonix daily. Depression with anxiety: Restart home medication of Cymbalta. Alcohol abuse: Will provide thiamine and folic acid. Patient drinks regularly. Will need to monitor for DTs. Patient may require banana bag but will hold off due to CHF. Await recommendations from nephrology concerning fluids. Tobacco abuse: Tobacco cessation will need to be addressed Discharge Plan: Other (alf facility) Plan to discharge in: Greater than 2 days - Advance Directives Does patient have a Living Will: Yes Does patient have a Durable POA for Healthcare: No - Code Status/Comfort Care Code Status Assessed: No (Will need to address advanced directives once more alert) Time Spent Managing Pts Care (In Minutes): 55
[2018-10-17] MEDS ORDERED: LORazepam 2 MG/ML VIAL ONE (03:45)
[2018-10-17 04:09] LABS: Urine Bacteria >50 /HPF (<20); Urine Culture Reflex Order REFLEXED; Urine RBC <5 /HPF (NONE SEEN)
[2018-10-17 04:11] LABS: Urine Blood 2+ (NEG); Urine Glucose NEGATIVE (NEG); Urine Protein 1+ (NEG)
[2018-10-17] MEDS ORDERED: ONDANSETRON 4 MG/2 ML VIAL IV PRN (04:17)
[2018-10-17] MEDS ORDERED: ACETAMINOPHEN 650MG/RECT SUPP RECT PRN (04:17)
[2018-10-17] MEDS ORDERED: ACETAMINOPHEN 500 MG TAB PO PRN (04:17)
[2018-10-17] MEDS: PANTOPRAZOLE 40MG TABLET PO SCH ×2 (05:46→05:59)
[2018-10-17 06:12] LABS: Thyroid Stimulating Hormone 1.18 uIU/mL (0.360-3.740)
[2018-10-17] MEDS: IPRATROPIUM BROM 0.5MG/2.5ML NEB PRN (07:28)
[2018-10-17] MEDS: ARFORMOTEROL TARTRATE 15 MCG/2 ML VIAL.NEB NEB SCH ×2 (07:28→20:00)
[2018-10-17] MEDS: ALBUTEROL 2.5 MG/3 ML NEB SOL NEB PRN (07:28)
--- NOTE | 2018-10-17 07:36 | EKG ---
Test Date: 2018-10-16 Test Time: 21:12:16 Chemical Processing Supervisor: MEGHAT MEASUREMENT RESULTS: Intervals: Rate: 121 [place]: 160 QRSD: 108 QT: 332 QTc: 471 [place]: P: 83 [place]: 160 QRS: -37 T: 108 INTERPRETIVE STATEMENTS: Sinus tachycardia Biatrial enlargement Left axis deviation Pulmonary disease pattern Septal infarct, age undetermined Abnormal ECG Compared to ECG 10/13/2018 10:12:38 Atrial abnormality now present PVC s no longer present Electronically Signed On 10-17-18 07:35:34 CDT by Bc Resendiz
[2018-10-17] MEDS ORDERED: TIOTROPIUM 5 SPRAYS/INHALER IH SCH ×2 (08:00→09:00)
[2018-10-17] MEDS: FOLIC ACID 1 MG TABLET PO SCH (08:52)
--- NOTE | 2018-10-17 08:58 | RAD REPORT ---
EXAM DESCRIPTION: US - Lower Extremity Arterial Bilat - 10/16/2018 9:59 pm CLINICAL HISTORY: Cold feet, discoloration, leg pain Preliminary findings provided the time of the study COMPARISON: None. TECHNIQUE: Waveforms were obtained along the length of each lower extremity. Delete select Visual in spection of the lower extremity arterial tree performed. FINDINGS: No focal flow restricting lesion or occlusion identifiable. Triphasic and biphasic wavefor ms were seen along the length of each lower extremity. Atherosclerotic changes are identified in the jameson of the vessels. The systolic and end-diastolic velocity values were obtained. No substantial as ymmetry right versus left. IMPRESSION: Bilateral lower extremity peripheral arterial disease is identifiable but does not resul t in any significant degree of luminal narrowing. No occlusions.
--- NOTE | 2018-10-17 08:59 | RAD REPORT ---
EXAM DESCRIPTION: RAD - Chest Single View - 10/16/2018 9:37 pm CLINICAL HISTORY: Worsening shortness of breath, leg swelling, recent CHF diagnosis COMPARISON: Portable chest October 13 TECHNIQUE: AP portable chest image was obtained 2124 hours . FINDINGS: Lung volumes are normal. No new focal consolidations seen. Cardiomegaly is present. Vascul ature is mildly prominent in the patient has diffusely prominent interstitial markings. Small bilater al pleural effusions are present. Trachea is midline. No pneumothorax. No acute bony abnormality seen . No acute aortic findings suspected. IMPRESSION: CHF/volume overload findings are present similar to fractionally worse than the October 13 imaging.
[2018-10-17] MEDS ORDERED: THIAMINE HCL 100 MG TABLET PO SCH (09:00)
[2018-10-17] MEDS ORDERED: METHYLPREDNISOLONE 40 MG INJ IV SCH (09:00)
[2018-10-17] MEDS ORDERED: ENOXAPARIN 30 MG/0.3 ML SQ SCH (09:00)
[2018-10-17 09:16] LABS: CKMB Creatine Kinase MB 8.8 ng/mL (0.3-3.6); Troponin I 0.05 ng/mL (0.0-0.045)
--- NOTE | 2018-10-17 09:50 | CON ---
Reason For Consult: Abnormal troponin. Chief Complaint: Dyspnea. History Of Present Illness: Ms. Mackenzie is a woman, who has severe lung disease. She continues to sm larissa. Has all of the findings on chest x-rays, EKGs of pulmonary disease. She also has an echocardio gram 4 years ago that indicated decreased ejection fraction. Since she has been in the hospital, she has been receiving BiPAP and antibiotics. She is not having chest pain. An echocardiogram is pendi ng and 1 troponin is done and it is measured at 0.05. Physical Examination: General: The patient is somnolent. She was aroused and then confused and disoriented. A blood gas does not indicate any CO2 retention or other signs of respiratory acidosis. Oxygenation is slightly low. Lungs: Reveal no normal breath sounds. They all bronchial type breath sounds. I do not appreciate wheezing. A CAT scan of the abdomen and chest shows small bilateral pleural effusions, emphysematous changes. I do not have a written report from radiologist, but I do not see any evidence of a mass or dissectio n or evidence of pulmonary embolus. An EKG shows evidence of an old anteroseptal PR, sinus rhythm, p ulmonary disease pattern, right atrial abnormality, right superior axis. I believe, the patient has severe lung disease. She probably has pulmonary hypertension. A repeat echocardiogram is to be done . I do not think we are really dealing with an acute coronary syndrome. Her EKGs look very similar to what they have been. I think we are dealing with severe lung disease. She also has evidence of s evere liver disease. Her liver transaminases are very elevated close to 1000. The AST is 792. I do not know that we really have a reason for that other than perhaps alcohol abuse. It was just a few days ago that her liver transaminases were normal, so this is an acute process, and I would be worrie d that there is severe underlying liver disease. I do not see that there is any evidence of liver di sease on the CAT scan, so I would be worried about toxic injury. Her bilirubin is also elevated. Thank you very much for your kind referral of Ms. Mackenzie. I will follow her with you. STEFANO/JUSTINE Voice ID: [id number] Report ID: [id number]
--- NOTE | 2018-10-17 09:56 | RAD REPORT ---
EXAM DESCRIPTION: CT - Angio Aorta For Dissection - 10/17/2018 5:00 am CLINICAL HISTORY: 78-year-old female with shortness of breath, rule out dissection. TECHNIQUE: High-resolution axial CT imaging of the chest, abdomen and pelvis was performed following intravenous contrast administration. Sagittal and coronal reconstructed images were performed. The C T study is performed according to ALARA (as low as reasonably achievable) or ALARA/IMAGE GENTLY, with automatic adjustment of mA and/or kV according to patient size. Performed on: 10/17/2018 at 12:49 AM COMPARISON: Prior CT chest performed on 05/17/[address] abdomen and pelvis performed on 10/02/2016 FINDINGS: CHEST: Lungs: The lungs are hyperinflated. There are diffuse centrilobular emphysematous changes. There are small bibasilar pleural effusions. There is mild patchy bibasilar opacification likely representing a telectasis. Heart: The heart is mildly enlarged. There is no pericardial effusion. Mediastinum: The mediastinum is unremarkable. The mediastinal vessels are normal in caliber and con tour. There is no evidence of aortic aneurysm or aortic dissection. There is homogeneous enhancement of the pulmonary arteries. There are no intra-arterial defects identified to suggest acute or chronic pulmonary embolism. There is reflux of contrast into the hepatic veins which could indicate right he art strain. The left vertebral artery arises directly from the aortic arch, a developmental variant. There is minimal mural thrombus within the proximal aortic arch. Bones: No acute osseous abnormalities are identified. There is some motion artifact at the level of t he mid sternum. Soft tissues: There is absence of the right breast consistent with prior mastectomy. Lymphadenopathy: No pathologic hilar, mediastinal or axillary lymphadenopathy is identified. There are calcified right hilar lymph nodes consistent with prior granulomatous disease. ABDOMEN/PELVIS: Liver: The liver is normal in size and configuration. No focal hepatic abnormalities are identified. Liver attenuation is within normal limits. Spleen: The spleen is normal is size, configuration and attenuation. There are multiple splenic granu nasir. Gallbladder and bile duct: The gallbladder is surgically absent. There is no biliary ductal dilatat ion. Pancreas: The pancreas is grossly normal in size and configuration. Adrenal Glands: There is stable fullness of the left adrenal gland. The right adrenal gland is grossl y unremarkable. Kidneys: The kidneys are normal in size and configuration. There is no evidence of hydronephrosis. Th ere is no evidence of nephrolithiasis. No definite solid or cystic renal mass lesions are identified. Stomach: The stomach is grossly normal. There is a very small hiatal hernia. Bowel: The bowel gas pattern is non specific and non obstructive. Appendix: The appendix appears to be surgically absent. Free air: There is no evidence of free air. Free fluid: There is a small amount of pelvic free fluid. Vasculature: The aorta is normal in caliber and contour. There are moderate atherosclerotic calcifica tions along the abdominal aorta and branch vessels. The inferior vena cava is grossly unremarkable. Lymphadenopathy: No pathologic lymphadenopathy is identified. Bladder: The bladder is well distended and smooth in contour. Reproductive: The uterus is atrophic. Bones: No acute osseous abnormalities are identified. Soft tissues: There is mild infiltration of the subcutaneous fat surrounding the hips. There is a sma ll intramuscular lipoma along the left posterior lateral abdominal wall. IMPRESSION: 1. Diffuse centrilobular emphysema. 2. Small bilateral pleural effusions. 3. No definite CT evidence to suggest acute or chronic pulmonary embolism, aortic aneurysm or aortic dissection. 4. Mild cardiomegaly. 5. Reflux of contrast into the hepatic veins which could indicate right heart strain. 6. Prior right mastectomy. 7. Small amount of nonspecific pelvic free fluid. The etiology of this is not certain. 8. Remote cholecystectomy and probable appendectomy. 9. Stable fullness of the left adrenal gland. 10. Evidence of prior granulomatous disease. 11. Moderate atherosclerotic disease. Electronically signed by: Elza Baker DO 10/17/2018 1:53 AM CDT Due to temporary technical issues with the PACS/Fluency reporting system, reports are being signed by the in house radiologist as a courtesy to ensure prompt reporting. The interpreting radiologist is f ully responsible for the content of the report.
--- NOTE | 2018-10-17 10:24 | PN ---
Date of Progress Note: 10/17/2018 Subjective: Patient is seen and examined. Chart reviewed and case discussed with RN. Patient is ve ry somnolent, currently on BiPAP, difficult to arouse. Medications: List reviewed. Physical Examination: Vital Signs: Temperature 97.3, heart rate 102, blood pressure 109/60, respirations 18, O2 at 98% on BiPAP. General: Asleep, but arousable to sternal rub. Patient is lethargic and confused, elderly female, i ll appearing, frail. BMI 19. CV: S1, S2. Sinus tachycardia. Peripheral pulses present. Respiratory: Diminished breath sounds. Some crackles present. No wheezing or stridor. No use of a ccessory muscles. Gastrointestinal: Abdomen is soft, nontender, nondistended. Positive bowel sounds. Extremities: No clubbing, cyanosis. No peripheral edema. Neuro: Unable to properly assess, however, moves all 4 extremities. Opens eyes to sternal rub and h as normal speech. Laboratory Data: Serum osmolality is 297. Ammonia 34. CK 150, CK-MB 8.8, troponin 0.05. Triglycer ides 86, cholesterol 125, LDL 49, HDL 59. TSH 1.18, free T4 of 0.97. Hepatitis panel pending. UDS is pending. Serum alcohol level less than 3. Assessment And Plan: A 78-year-old female with: 1.Acute metabolic encephalopathy, unclear etiology, may be related to hyponatremia. 2.Hyponatremia. We will monitor and continue with IV fluids. 3.Acute kidney injury. Continue with IV fluids and avoid NSAIDs. Continue to monitor creatinine. 4.Elevated liver enzymes likely secondary to alcohol abuse and possible congestion from congestive h eart failure. We will continue to monitor. 5.Elevated troponin level likely secondary to demand mismatch and congestive heart failure. 6.Shortness of breath secondary to pleural effusions secondary to acute on chronic diastolic heart f ailure. 7.Acute on chronic diastolic congestive heart failure exacerbation. We will continue with fluid res triction, strict I's and O's, and diuretics. 8.Acute chronic obstructive pulmonary disease exacerbation. We will continue with breathing treatme nts and steroids. 9.Bilateral pleural effusions secondary to congestive heart failure. 10.Gastroesophageal reflux disease without esophagitis. 11.Depression with anxiety. 12.Alcohol abuse. Alcohol level is less than 3. 13.Nicotine dependence with cigarette smoking. We will curriculum counselor once awake. 14.Deep venous thrombosis prophylaxis with Lovenox. Awaiting Cardiology and Pulmonology evaluation. We will repeat BMP at noon. /JUSTINE Voice ID: [id number] Report ID: [id number]
[2018-10-17] MEDS ORDERED: NA CHLORIDE 0.9% 1,000 ML IV SCH (11:00)
--- NOTE | 2018-10-17 11:27 | RAD REPORT ---
EXAM DESCRIPTION: US - Abdomen Exam Complete - 10/17/2018 10:54 am CLINICAL HISTORY: Abdominal pain. elevated LFT, Acute renal injury COMPARISON: ABDOMINAL EXAM COMPLETE dated 10/12/2010BDOMINAL EXAM COMPLETE dated 10/12/2010; Angio Aor ta For Dissection dated 10/17/2018 FINDINGS: The liver appears mildly prominent in size with mild fatty infiltration suspected. There i s a subtle nodular contour to the liver parenchyma is seen. Trace free fluid is seen in Morison's kun ch. No focal liver lesions or intrahepatic biliary dilatation is seen. Small pleural effusions suspec zain. Cholecystectomy. Common bile duct is normal in caliber measuring 5 millimeters. Both kidneys are normal in size, shape and echotexture. No hydronephrosis, focal lesion of concern or perinephric fluid. The spleen is normal in size measuring 7 cm. The pancreas and aorta are obscured by bowel gas. The visualized aspects of the IVC are grossly normal. IMPRESSION: Mild fatty liver with subtle nodular contour to the liver parenchyma is seen suggesting mild/early cirrhosis.
--- NOTE | 2018-10-17 12:16 | P.CNS ---
Date of Consult: 10/17/18 Primary Care Provider: Dr. Daiz; Pulmonary-Dr. Akbar Chief Complaint: Shortness of breath History of Present Illness: Patient is 78 years of age presented to the emergency room with shortness of breath currently unresponsive on a BiPAP 3 of COPD currently she is got worse over the past week history obtained from review of the medical record as been very weak history of regular alcohol consumption the emergency room blood gases satisfactory electrolyte abnormalities renal insufficiency abnormal LFTs Allergies Penicillins Allergy (Intermediate, Verified 10/17/18 06:05) Itching/Hives/Rash Home Medications: Tiotropium [Spiriva Handihaler*] 18 mcg IH DAILY 03/09/12 ALPRAZolam [Xanax*] 0.5 mg PO BIDP PRN 05/10/13 Duloxetine [Cymbalta *] 60 mg PO BEDTIME 05/10/13 Gabapentin [Gralise] 300 mg PO QID 04/20/16 Melatonin 2 tab PO BEDTIME 04/20/16 B12/Levomefolate Calcium/B-6 [Folbic Rf Tablet] 1 each PO DAILY #30 tablet 04/21 Magnesium Oxide [Mag 0X*] 400 mg PO BID #60 tab 04/21/16 Pantoprazole [Protonix Tab*] 40 mg PO DAILYAC #30 tab 04/21/16 Thiamine HCl 100 mg PO DAILY #30 tablet 04/21/16 Albuterol Sulfate [Proair Hfa] 8.5 gm IH TID PRN #1 hfa.aer.ad 10/05/16 Diphenox/Atropine [Lomotil*] 1 tab PO QID PRN #15 tab 10/05/16 Ensure Enlive 237 ml PO TID #90 can 10/05/16 Nicotine [Nicoderm*] 21 mg TD DAILY #30 10/05/16 metroNIDAZOLE [Flagyl] 500 mg PO Q8H #42 tablet 10/05/16 predniSONE [Prednisone*] 20 mg PO SEECOM #15 tab 10/05/16 traMADol HCL [Ultram*] 50 mg PO TID PRN #15 tab 10/05/16 - Past Medical/Surgical History Diabetic: No -: COPD -: Depression with anxiety -: History of breast cancer -: Neuropathy -: GERD -: Tobacco abuse -: Hypokalemia -: Alcohol abuse -: Alcohol abuse -: Cholecystectomy -: Appendectomy -: Right mastectomy Psychosocial/ Personal History: Patient is a , she has 3 children. She lives by herself. - Family History Mother Medical History: Other (see notes) Notes: Dementia and Alzheimers - Social History Smoking Status: Current every day smoker Alcohol use: Yes CD- Drugs: No Caffeine use: Yes Place of Residence: Home Review of Systems is unable to be obtained Physical Examination Temp Pulse Resp BP Pulse Ox 97.3 F 102 H 18 109/60 98 10/17/18 08:00 10/17/18 08:00 10/17/18 08:00 10/17/18 08:00 10/17/18 08:00 General: Unresponsive Neck: Supple Respiratory: Clear to auscultation bilaterally Cardiovascular: No edema, Regular rate/rhythm Gastrointestinal: Normal bowel sounds, Soft and benign Musculoskeletal: No clubbing, No contractures Integumentary: No rashes, No breakdown Laboratory Data (last 24 hrs) 10/17/18 02:53: Lipase 160 10/16/18 22:42: PT 18.5 H, INR 1.60 10/16/18 22:42: WBC 10.0, Hgb 14.8, Hct 43.4, Plt Count 225 D 10/16/18 22:42: Sodium 127 L, Potassium 4.7, BUN 54 H D, Creatinine 1.75 H, Glucose 121 H, Magnesium 2.6 H D, Total Bilirubin 1.5 H, AST 792 H* D, ALT 373 H * D, Alkaline Phosphatase 90 - Problems (1) Shortness of breath Current Visit: Yes Status: Acute Plan: Patient is 78 years of age admitted from home with progressive shortness of breath heavy smoker or alcoholic arterial blood gases shows hypo car be a no evidence of CO2 retention oxygenation satisfactory labs are very abnormal hypokalemic abnormal liver function tests renal insufficiency patient has a macrocytosis normal white count consistent with alcohol abuse patient is on a bronchodilator at home blood pressure stable renal function pending continue with IV fluids is currently unresponsive does not need BiPAP continue pulse oximetry monitoring Dc Lovenox patient is auto anti coag
[2018-10-17 13:08] LABS: Albumin 3.5 g/dL (3.4-5.0); Bilirubin Total 1.3 mg/dL (0.2-1.0); Potassium 4.8 mmol/L (3.5-5.1); Protein, Total 6.9 g/dL (6.4-8.2)
[2018-10-17 13:50] LABS: Urine Appearance CLOUDY; Urine Bilirubin NEGATIVE (NEG); Urine Blood 1+ (NEG); Urine Color YELLOW; Urine Glucose NEGATIVE (NEG); Urine Protein TRACE (NEG); Urine Specific Gravity >=1.030 (1.005-1.030); Urine pH 5.5 (5.0-7.0)
[2018-10-17 13:51] LABS: Barbiturates NEGATIVE (NEGATIVE); Benzodiazepines NEGATIVE (NEGATIVE); Cocaine NEGATIVE (NEGATIVE); METHAMPHETAM NEGATIVE (NEGATIVE); Methadone NEGATIVE (NEGATIVE); Opiates NEGATIVE (NEGATIVE); Phencyclidine NEGATIVE (NEGATIVE); THC Cannibis NEGATIVE (NEGATIVE); Urine Microscopic Reflex ORDER UMIC
[2018-10-17 14:12] LABS: Urine Bacteria >50 /HPF (<20); Urine RBC NONE SEEN /HPF (NONE SEEN)
[2018-10-17 14:14] LABS: Urine Culture Reflex Order NOT NEEDED
[2018-10-17] MEDS: THIAMINE 200 MG/2 ML INJ IVP SCH (14:25)
--- NOTE | 2018-10-17 14:27 | EKG ---
Test Date: 2018-10-17 Test Time: 07:45:03 Court Advocate: KYLE MEASUREMENT RESULTS: Intervals: Rate: 107 LA: 158 QRSD: 104 QT: 362 QTc: 483 Davis: P: 82 LA: 158 QRS: -15 T: 128 INTERPRETIVE STATEMENTS: Sinus tachycardia T wave abnormality, consider lateral ischemia Abnormal ECG Compared to ECG 10/16/2018 21:12:16 T-wave abnormality now present Possible ischemia now present Atrial abnormality no longer present Left-axis deviation no longer present Myocardial infarct finding no longer present Electronically Signed On 10-17-18 14:26:36 CDT by Bc Resendiz
--- NOTE | 2018-10-17 14:32 | ECHO ---
HEIGHT: 5 ft 2 in WEIGHT: 105 lb 0 oz DATE OF STUDY: 10/17/[address]: Arnol Vivar DO 2-DIMENSIONAL: YES M.MODE: YES DOPPLER: YES COLOR FLOW: YES TDS: NO PORTABLE: NO DEFINITY: NO BUBBLE STUDY: NO DIAGNOSIS: CONGESTIVE HEART FAILURE CARDIAC HISTORY: CATHERIZATION: NO SURGERY: NO PROSTHETIC VALVE: NO PACEMAKER: NO MEASUREMENTS (cm) DIASTOLIC (NORMALS) SYSTOLIC (NORMALS) IVSd 0.8 (0.6-1.2) LA Diam 3.2 (1.9-4.0) LVEF 15-20% LVIDd 4.4 (3.5-5.7) LVIDs 3.8 (2.0-3.5) %FS 13% LVPWd 1.1 (0.6-1.2) Ao Diam 2.3 (2.0-3.7) 2 DIMENSIONAL ASSESSMENT: RIGHT ATRIUM: DILATED LEFT ATRIUM: DILATED RIGHT VENTRICLE: DILATED LEFT VENTRICLE: DILATED TRICUSPID VALVE: NORMAL MITRAL VALVE: MIRTRAL ANNULAR CALCIFICATION PULMONIC VALVE: NORMAL AORTIC VALVE: NORMAL PERICARDIAL EFFUSION: NONE AORTIC ROOT: NORMAL LEFT VENTRICULAR WALL MOTION: SEVERE GLOBAL HYPOKINESIS. DOPPLER/COLOR FLOW: MILD AORTIC, MITRAL AND TRICUSPID REGURGITATION. NORMAL RIGHT VENTRICULAR SYSTOLIC PRESSURE. COMMENTS: FOUR CHAMBER DILATATION. SEVERELY DEPRESSED LEFT VENTRICULAR EJECTION FRACTION. MILD AORTIC AND TRICUSPID REGURGITATION. TECHNOLOGIST: PAIGE THOMPSON
[2018-10-17] MEDS ORDERED: LOSARTAN POTASSIUM 50 MG TABLET PO SCH (16:00)
[2018-10-17 17:12] LABS: Troponin I 0.05 ng/mL (0.0-0.045)
[2018-10-17] MEDS: CARVEDILOL 3.125 MG TAB PO SCH (17:25)
[2018-10-17] MEDS: ACETYLCYST 20% 800 MG/4 ML VIAL PO SCH (21:00)
[2018-10-17] MEDS: DULOXETINE 30 MG CAP PO SCH (21:44)
--- NOTE | 2018-10-18 00:24 | CON ---
Date of Consultation: 10/17/2018 Chief Complaint: Abnormal renal function test, acute kidney injury. History Of Present Illness: The patient has history of chronic kidney disease stage 3, baseline crea tinine level is ranging from 1.05 to 1.13. During this admission, creatinine is up to 1.75. The pat ient was found to have hyponatremia, sodium of 127 and today improved to 128. Potassium level remain s within normal limits and the patient does not have metabolic acidosis. The patient is a 78-year-ol d woman with multiple medical problems. She was brought to the emergency room because of shortness o f breath. She has underlying history of COPD, anxiety, GERD, alcohol and tobacco abuse. Daughter re ports that the patient was seen in the past week for shortness of breath in the hospital. She was di agnosed with COPD exacerbation and was started on oral steroids and discharged to home. She has had poor p.o. intake and some abdominal discomfort. She did not have cough or fever. Denies chest pain. During ER evaluation, the patient was found to have tachycardia and tachypnea. She was started on BiPAP. ABG showed pH of 7.4, pCO2 of 33, PO2 86. White count 10, hemoglobin 14.8. Sodium level was 127, potassium was 5.7 on arrival to the hospital. Subsequently, potassium improved. BUN 54, creat inine 1.57. The patient had CT angiogram, which showed diffuse emphysema with small bilateral pleura l effusion. There was evidence of pulmonary emboli or aortic aneurysm. The patient had CT scan done with angiogram to rule out dissection and PE. Review of Systems: Constitutional: The patient complains of generalized weakness and shortness of breath. Eyes: Denies vision changes. Ears, Nose, Mouth, and Throat: Denies sore throat, earache. GI: Denies nausea, vomiting. : Denies dysuria, hematuria. Musculoskeletal: Denies muscle aches or joint swelling. All other systems reviewed and all are negative. Past Medical History: COPD, depression, anxiety, history of breast cancer, neuropathy, GERD, tobacco abuse, , alcohol abuse, cholecystectomy, appendicectomy, right mastectomy. Family History: Dementia, Alzheimer. Social History: Tobacco, half-a-pack per day for at least 40 years. Alcohol, denies alcohol. Denie s street drugs. Physical Examination: General: The patient is awake, lethargic. Eyes: Anicteric sclerae. EOMI. Ears, Nose, Mouth and Throat: Oral mucosa moist. No pallor. Neck: Supple. No bruits. Lungs: Wheezing bilaterally present with rhonchi. Heart: S1, S2. No pericardial friction rub. Abdomen: Soft, benign, obese, nontender. Extremities: No swelling. No cyanosis. No cellulitis. Neurological: Moving extremities. Cranial nerves intact. Psychiatric: Alert, oriented x3. Normal affect. Laboratory Data: Sodium 127, potassium 4.7, BUN 54, creatinine 1.75, glucose 121, magnesium 2.6, AST , ALT 373. Impression And Plan: 1.Shortness of breath, dyspnea, with bilateral pleural effusions secondary to acute on chronic diast olic congestive heart failure. Patient was found to have abnormal renal function tests, acute on chr onic kidney injury secondary to cardiorenal syndrome with prerenal azotemia. Monitor urine output. Hyponatremia, likely secondary to multiple causes with congestive heart failure and chronic obstructi ve pulmonary disease exacerbation. Continue normal saline for hydration as tolerated. . 2.Chronic obstructive pulmonary disease exacerbation. Continue bronchodilators and possibly antibio tics. 3.Alcohol abuse. Monitor magnesium level, phosphorus level. Increase protein intake as tolerated a nd plan is to screen the patient for proteinuria. 4.Recommend renal ultrasound for evaluation kidney size and echotexture. The patient had CT scan do ne with IV contrast. Continue Mucomyst and sodium chloride 0.9% normal saline as started. Abdominal ultrasound did not show obstructive uropathy. 5.The patient has lower urinary tract symptoms. Check urinalysis to rule out urinary tract infectio nJim HARPER/MODL Voice ID: [id number] Report ID: [id number]
[2018-10-18] MEDS: CARVEDILOL 3.125 MG TAB PO SCH ×2 (05:59→17:18)
[2018-10-18] MEDS: PANTOPRAZOLE 40MG TABLET PO SCH (06:01)
[2018-10-18 06:13] LABS: Absolute Lymphocytes (CBC) 0.9 K/uL (0.7-4.9); Basophils % 0.2 % (0-1.3); Lymphocytes % 12.6 % (15.3-44.8); MPV 8.2 fL (7.6-11.3); RBC Red Blood Cell Count 3.85 M/uL (3.86-4.86)
[2018-10-18 06:45] LABS: Albumin 3.4 g/dL (3.4-5.0); Bilirubin Total 1.1 mg/dL (0.2-1.0); Magnesium 2.9 mg/dL (1.8-2.4); Potassium 4.6 mmol/L (3.5-5.1); Protein, Total 6.8 g/dL (6.4-8.2)
[2018-10-18] MEDS: ARFORMOTEROL TARTRATE 15 MCG/2 ML VIAL.NEB NEB SCH ×2 (07:45→20:10)
[2018-10-18] MEDS: IPRATROPIUM BROM 0.5MG/2.5ML NEB PRN (07:45)
[2018-10-18] MEDS ORDERED: TIOTROPIUM 5 SPRAYS/INHALER IH SCH (08:00)
[2018-10-18] MEDS ORDERED: MIDODRINE HCL 5 MG TABLET PO SCH (09:00)
[2018-10-18] MEDS ORDERED: THIAMINE 200 MG/2 ML INJ IVP SCH (09:00)
[2018-10-18] MEDS: FOLIC ACID 1 MG TABLET PO SCH (09:56)
[2018-10-18] MEDS: THIAMINE 200 MG/2 ML INJ IVP SCH (09:56)
[2018-10-18] MEDS: ACETYLCYST 20% 800 MG/4 ML VIAL PO SCH ×2 (09:57→20:18)
--- NOTE | 2018-10-18 10:00 | PN ---
Subjective: Ms. Mackenzie is now known to have a very depressed ejection fraction, it is in the 20% ran ge, so her dyspnea is multifactorial, comes from severe lung disease with pulmonary fibrosis most lik jc as well as COPD and now severe left ventricular dysfunction documented by the echocardiogram yest brady. Attempts to give her medications to help with this are complicated by hypotension, so we are probably going to not be able to give her anything close to ideal congestive heart failure or cardiom yopathy medications. I would certainly not want to see us give her IV fluids and volume overload her . She is at least tolerating Coreg, but I do not think her renal function and low blood pressure denice l allow us to keep her on an angiotensin receptor bree or a neprilysin inhibitor. At this point, I do not think she needs diuretics. SH/MODL Voice ID: [id number] Report ID: [id number]
--- NOTE | 2018-10-18 12:18 | RAD REPORT ---
EXAM DESCRIPTION: RAD - Chest Single View - 10/18/2018 6:00 am CLINICAL HISTORY: follow up COPD, CHF Chest pain. COMPARISON: Chest Single View dated 10/16/2018; Chest Single View dated 10/13/2018; Chest Pa And Lat (2 Views) dated 05/17/2017; Chest Single View dated 01/30/2017 FINDINGS: Portable technique limits examination quality. Mild improvement in lung aeration is noted since 10/16/2018 study. The heart remains moderately promi nent in size. No displaced fractures.Right axillary clips. IMPRESSION: Mild improvement in lung aeration since 10/16/2018.
[2018-10-18] MEDS: CEFTRIAXONE/SWI 1gm 1 GM/10 ML SYR IV SCH (13:42)
--- NOTE | 2018-10-18 16:28 | PN ---
Date of Progress Note: 10/18/2018 Subjective: Patient is seen and examined. Chart reviewed and case discussed with RN and Dr. Valeri mcdaniel. Patient is doing better, much more awake and alert, ambulating with a walker. Daughter at the be dside. Treatment plan explained. All questions answered. Medication List: Reviewed. Physical Examination: Vital Signs: Temperature 97.3, heart rate 74, blood pressure 92/51, respirations 18, O2 at 95% on 2 L via nasal cannula. General: Awake, alert, oriented x3. Elderly female, frail, appears older than stated age, cachectic . BMI 18. Ill appearing. CV: S1, S2. Irregular rate and rhythm. Peripheral pulses weak. Respiratory: Diminished breath sounds. Crackles heard. No wheezing or stridor. Gastrointestinal: Abdomen is soft, nontender, nondistended. Positive bowel sounds. No guarding or rigidity. Extremities: No clubbing or cyanosis. Trace pedal edema. Neurologic: Nonfocal. Laboratory Data: Sodium 131, potassium 4.6, chloride 95, CO2 of 27, BUN 72, creatinine 1.75, glucose 119, calcium 8.7, magnesium 2.9, AST 859, ALT 565. Troponin 0.05 and 0.05. WBC 7.2, H and H of 14. 2 and 41, platelets 188, neutrophils 72%. Hepatitis panel is pending. Blood cultures, no growth to date. Urine culture, 4+ gram-negative rods. Chest x-ray shows mild improvement in aeration since . Echocardiogram shows EF of 15% to 20%, 4-chamber dilation, severely depressed left ventric ular ejection fraction, mild aortic and tricuspid regurg. Assessment And Plan: A 78-year-old female with: 1.Acute metabolic encephalopathy, likely related to hyponatremia, urinary tract infection, improving , now back to baseline. 2.Hyponatremia, improving. We will continue to monitor. 3.Acute kidney injury. Kidney function slightly worse today. We will avoid IV fluids due to volume overload. 4.Acute on chronic systolic congestive heart failure. Ejection fraction is 15% to 20%. We will con tinue with fluid restriction, I's and O's. Patient unable to tolerate diuretics due to her blood pre ssure. Appreciate Dr. Resendiz' input. 5.Elevated troponin levels likely secondary to congestive heart failure. 6.Paroxysmal atrial fibrillation. Patient has been going between atrial fibrillation and normal sin us rhythm. We will continue beta-bree. We will discuss with Cardiology regarding anticoagulation . 7.Anticoagulation. Patient may not be a good candidate as her INR is already elevated due to liver dysfunction. 8.Elevated liver enzymes secondary to congestive heart failure from congestion as well as alcohol. Hepatitis panel is pending, to rule out acute hepatitis. We will continue to monitor. 9.Acute chronic obstructive pulmonary disease exacerbation. Continue breathing treatments and stero ids. Patient now off BiPAP, currently on 2 L via nasal cannula. We will wean as tolerated. 10.Bilateral pleural effusions secondary to congestive heart failure, improving. Chest x-ray shows improvement. 11.Gastroesophageal reflux disease without esophagitis. 12.Depression with anxiety, stable. 13.Alcohol abuse. Patient has been counseled. 14.Nicotine dependence with cigarette smoking. Patient has been counseled. 15.Deep venous thrombosis prophylaxis with Lovenox. 16.Urinary tract infection, acute cystitis without hematuria secondary to 4+ gram-negative rods. We will start on IV antibiotics and follow up on culture results. We will continue current treatment. /JUSTINE Voice ID: [id number] Report ID: [id number]
[2018-10-18] MEDS: DULOXETINE 30 MG CAP PO SCH (20:18)
[2018-10-18] MEDS: ENSURE ENLIVE 237 ML CAN PO SCH (20:18)
--- NOTE | 2018-10-18 22:24 | PN ---
Date of Progress Note: 10/18/2018 Subjective: Nephrology consultation was requested yesterday. Patient has abnormal renal function te st, acute kidney injury. Patient has chronic kidney disease, stage 3. Baseline creatinine level is ranging from 1.05 to 1.13. During this admission, creatinine is up to 1.75. She was found to have h yponatremia. Sodium level was 127 and slightly improved to 128. Patient has multiple medical proble ms including history of COPD, anxiety, alcohol abuse. She was diagnosed with COPD exacerbation. Review of Systems: Patient denies fever, chills. Physical Examination: Lungs: Few rhonchi. Heart: S1, S2. Abdomen: Soft, benign, nontender. Extremities: Slight edema. Laboratory Data: Blood work, sodium 131, potassium 4.6, chloride 95, CO2 of 27, BUN 72, creatinine 1 .75, glucose 119, magnesium 2.9, AST 859, ALT 565. Impression And Plan: Acute on chronic kidney injury. Monitor blood pressure closely. Patient is no t a good candidate for angiotensin receptor bree due to acute kidney injury. Patient received IV contrast for angiogram. Patient received Mucomyst to prevent contrast-induced ne phropathy. Monitor renal function closely and avoid nephrotoxic medication. Continue IV normal sali ne for hydration. Hyponatremia is gradually improving. Abuse of alcohol management by primary team. Monitor magnesium level and phosphorus level. Increased protein intake as tolerated. Monitor ammo lupe level. Elevated liver function tests. Etiology is not clear, likely secondary to alcoholic liver disease. Patient is undergoing workup for hepatitis. LEROY/JUSTINE Voice ID: [id number] Report ID: [id number]
[2018-10-18] MEDS: MELATONIN 5 MG TABLET PO ONE ×2 (23:51→23:54)
[2018-10-19] MEDS: IPRATROPIUM BROM 0.5MG/2.5ML NEB PRN ×2 (01:05→07:42)
[2018-10-19] MEDS: ALBUTEROL 2.5 MG/3 ML NEB SOL NEB PRN ×2 (01:05→07:42)
[2018-10-19] MEDS: CARVEDILOL 3.125 MG TAB PO SCH ×3 (06:00→19:01)
[2018-10-19 06:49] LABS: Absolute Lymphocytes (CBC) 1.6 K/uL (0.7-4.9); Basophils % 0.4 % (0-1.3); Hematocrit 43.1 % (36.0-45.0); Lymphocytes % 14.6 % (15.3-44.8); MPV 8.4 fL (7.6-11.3); RBC Red Blood Cell Count 4.14 M/uL (3.86-4.86)
[2018-10-19] MEDS: PANTOPRAZOLE 40MG TABLET PO SCH (07:01)
[2018-10-19 07:23] LABS: Albumin 3.3 g/dL (3.4-5.0); Bilirubin Total 0.7 mg/dL (0.2-1.0); Magnesium 2.8 mg/dL (1.8-2.4); Potassium 4.4 mmol/L (3.5-5.1); Protein, Total 6.8 g/dL (6.4-8.2)
[2018-10-19] MEDS: ARFORMOTEROL TARTRATE 15 MCG/2 ML VIAL.NEB NEB SCH ×2 (07:42→20:00)
[2018-10-19] MEDS: ACETYLCYST 20% 800 MG/4 ML VIAL PO SCH (10:29)
[2018-10-19] MEDS: CEFTRIAXONE/SWI 1gm 1 GM/10 ML SYR IV SCH (10:30)
[2018-10-19] MEDS: THIAMINE 200 MG/2 ML INJ IVP SCH (10:30)
[2018-10-19] MEDS: FOLIC ACID 1 MG TABLET PO SCH (10:30)
[2018-10-19] MEDS: ENSURE ENLIVE 237 ML CAN PO SCH ×3 (10:31→21:43)
[2018-10-19] MEDS ORDERED: LACTULOSE 20 GM/30 ML UCUP PO PRN (10:51)
--- NOTE | 2018-10-19 13:32 | PN ---
Patient seen and examined. Chart reviewed and case discussed with RN. The patient is doing better. Still having some difficulty breathing, currently receiving nebulizer treatment. Medications: List reviewed. Physical Examination: Vital Signs: Temperature 97, heart rate 85, blood pressure 93/49, respirations 20, O2 96% on 2 L via nasal cannula. General: Awake, alert, oriented x3. Elderly female, frail, appears older than stated age ill-appear ing. CV: S1, S2. Regular rate and rhythm. Peripheral pulses present. Respiratory: Diminished breath sounds. Crackles present. Abdomen: Abdomen is soft, nontender, nondistended. Positive bowel sounds. Extremities: No clubbing, cyanosis. Trace pedal edema. Neurologic: Nonfocal. Laboratory Data: Sodium 132, potassium 4.4, chloride 94, CO2 of 29, BUN 82, creatinine 1.59, glucose 92, calcium 8.7, AST 890, ALT 702, albumin 3.3. WBC 10.8, H and H 15.3 and 43.1, platelets 170. Ur ine culture growing out Escherichia coli, pansensitive. Assessment And Plan: A 78-year-old female with. 1.Acute metabolic encephalopathy, likely related to hyponatremia, UTI, resolved, now back to baselin e. 2.Hyponatremia improving. We will continue to monitor. We will continue with free fluid restrictio n. 3.Acute kidney injury. Kidney function is improving. We will continue to monitor. No NSAIDs. 4.Acute on chronic systolic congestive heart failure. Ejection fraction is 15 to 20%. Continue wit h strict I's and O's with daily weights, fluid restriction. Appreciate Dr. Resendiz' input. We will c ontinue on congestive heart failure guidelines, patient unable to tolerate some of her medications du e to low blood pressure. 5.Elevated troponin level likely secondary to congestive heart failure. 6.Paroxysmal atrial fibrillation. Continue with beta bree. The patient has elevated INR, may no t be a good candidate for anticoagulation. 7.Elevated liver enzymes, unclear etiology, may be due to congestive heart failure versus her chroni c alcohol use and acute hepatic failure. Hepatitis panel is pending. 8.Acute chronic obstructive pulmonary disease exacerbation. We will continue with breathing treatme nts and wean off steroids. The patient now down to 2 L via nasal cannula. We will wean as tolerated . 9.Bilateral pleural effusions secondary to congestive heart failure, improving. 10.Gastroesophageal reflux disease without esophagitis, stable. 11.Depression with anxiety, stable. 12.Alcohol abuse. The patient has been counseled. 13.Nicotine dependence with cigarette smoking, counseled. 14.Deep venous thrombosis prophylaxis, SCDs, no chemical anticoagulation due to coagulopathy. 15.Urinary tract infection, acute cystitis secondary to Escherichia coli. No hematuria. We will co ntinue on Rocephin. Plan: GI is unavailable. We will discuss further with Cardiology. Overall guarded prognosis. SA/MODL Voice ID: [id number] Report ID: [id number]
--- NOTE | 2018-10-19 15:32 | PN ---
Subjective: Ms. Mackenzie is exhibiting many features of failure to thrive. She has something really a ggravating her liver, could be passive hepatic congestion, not sure. She is not eating at all, barel y takes 3 swallows of Ensure twice a day and does not seem to have much will to try and do better. H er laboratory exam would suggest that her kidneys are not getting worse every day, maybe slightly bet ter at the liver, whatever is bothering her it is a severe problem. We have been unable to initiate therapy with any MEHDI inhibitors or Entresto because of low blood pressure. We might attempt that lat er. She is tolerating Coreg for now. We will see if we can make any advance on the congestive heart failure medications. EYAL Voice ID: [id number] Report ID: [id number]
--- NOTE | 2018-10-19 16:27 | RAD REPORT ---
EXAM DESCRIPTION: RAD - Abdomen 1 View (KUB) - 10/19/2018 3:46 pm CLINICAL HISTORY: Abdominal pain COMPARISON: Portable chest October 18, CT chest October 17 FINDINGS: Bowel gas pattern is non-specific. No obstruction, free air or pneumatosis. No suspicious calcifications. No acute bone findings. Left base opacification is present. October 17 CT study showed bilateral pleural effusions and bilatera l lung base atelectasis. IMPRESSION: No obstruction, free air or acute findings. No suspicious abdominal or pelvic finding on plain film. Bilateral pleural effusions with left greater than right atelectasis. Lung da silva are only partially imaged.
[2018-10-19] MEDS: MELATONIN 5 MG TABLET PO ONE (19:01)
[2018-10-19] MEDS: DULOXETINE 30 MG CAP PO SCH (21:43)
[2018-10-19] MEDS ORDERED: ZIPRASIDONE MESYLA 20 MG/VIAL IM ONE (23:25)
[2018-10-19] MEDS ORDERED: WATER FOR INJ,STERILE 10 ML IM PRN (23:25)
--- NOTE | 2018-10-20 01:30 | PN ---
Date of Progress Note: 10/19/2018 Chief Complaint: Abnormal kidney function test, acute on chronic kidney injury. History Of Present Illness: Patient has chronic kidney disease stage 3. Baseline creatinine level h as been ranging from 1.05 to . During this admission, creatinine is up to 1.75. The patie nt was found to have hyponatremia. Sodium level gradually improved from 127. Past Medical History: Patient has multiple medical problems including history of COPD, alcohol abuse and she is admitted for COPD exacerbation. She was complaining of dyspnea. Review of Systems: Patient is feeling better. Denies PND or orthopnea. Physical Examination: LUNGS: Few rhonchi. HEART: S1, S2. ABDOMEN: Soft, benign, nontender. EXTREMITIES: Minimal edema. Laboratory Data: Hemoglobin 15.3, WBC 10.8, platelet count is 170,000. Chemistry showed sodium 142, potassium 4.4, chloride 94, CO2 of 29, BUN 82, creatinine 1.59, glucose 92, total bilirubin is 0.7, AST 890, ALT 702. Impression And Plan: 1.Acute on chronic injury. Renal function is plateauing, stabilizing. Continue IV fluids. There i s high BUN and creatinine ratio secondary to prerenal azotemia. The patient will continue IV fluids. An angiotensin receptor bree is currently on hold due to risk of hyperkalemia in setting of live r disease and acute on chronic kidney injury. The patient received Mucomyst to prevent contrast-vi viviana nephropathy. On arrival to the hospital, she had IV contrast to rule out PE. Continu e IV fluids and Mucomyst started. 2.Liver function test elevations. Patient has alcoholic liver disease. Pending workup for hepatiti s as per primary team. EB/MODL Voice ID: [id number] Report ID: [id number]
[2018-10-20 06:25] LABS: Absolute Lymphocytes (CBC) 1.3 K/uL (0.7-4.9); Basophils % 0.1 % (0-1.3); Hematocrit 45.4 % (36.0-45.0); Lymphocytes % 12.2 % (15.3-44.8); MPV 8.9 fL (7.6-11.3); RBC Red Blood Cell Count 4.34 M/uL (3.86-4.86)
[2018-10-20 06:32] LABS: Albumin 3.5 g/dL (3.4-5.0); Bilirubin Total 0.9 mg/dL (0.2-1.0); Magnesium 2.2 mg/dL (1.8-2.4); Potassium 3.7 mmol/L (3.5-5.1); Protein, Total 6.9 g/dL (6.4-8.2)
[2018-10-20] MEDS: PANTOPRAZOLE 40MG TABLET PO SCH (07:30)
[2018-10-20] MEDS: CARVEDILOL 3.125 MG TAB PO SCH ×2 (07:30→17:40)
[2018-10-20] MEDS: IPRATROPIUM BROM 0.5MG/2.5ML NEB PRN (07:35)
[2018-10-20] MEDS: ARFORMOTEROL TARTRATE 15 MCG/2 ML VIAL.NEB NEB SCH ×2 (07:35→20:05)
[2018-10-20] MEDS: ENSURE ENLIVE 237 ML CAN PO SCH ×2 (08:15→20:15)
[2018-10-20] MEDS: FOLIC ACID 1 MG TABLET PO SCH (08:46)
[2018-10-20] MEDS: THIAMINE 200 MG/2 ML INJ IVP SCH (08:46)
[2018-10-20] MEDS: CEFTRIAXONE/SWI 1gm 1 GM/10 ML SYR IV SCH (08:47)
[2018-10-20] MEDS ORDERED: POTASSIUM CL SA 10 MEQ TAB PO ONE (09:00)
[2018-10-20] MEDS: predniSONE 20 MG TAB PO SCH ×2 (10:05→20:15)
[2018-10-20 10:08] VITALS: BMI 19.1
--- NOTE | 2018-10-20 12:06 | PN ---
Mrs. Mackenzie has continued hepatic problems. The concern is that may be alcohol hepatitis could be pa ssive congestion, could be another kind of hepatitis. And so partly, for that reason to get a GI con sultation and consultation with the heart failure team for her newly very depressed ejection fraction . She is being transferred to [facility]. She is in about the same condition as yesterday. Overall , I do not detect pulmonary edema. Her blood pressure is low enough that we do not think, we can ini tiate therapy with an angiotensin receptor bree. SH/MODL Voice ID: [id number] Report ID: [id number]
[2018-10-20] MEDS: DULOXETINE 30 MG CAP PO SCH (20:15)
[2018-10-20 20:23] VITALS: BP 119/60; TEMP 97.8
[2018-10-20 23:19] VITALS: O2SAT 97
--- NOTE | 2018-10-21 03:15 | PN ---
Date of Progress Note: 10/20/2018 Chief Complaint: Acute on chronic kidney injury. History Of Present Illness: Patient has chronic kidney disease stage 3. She developed acute on stage rigger yamileth kidney injury, nonoliguric. Creatinine level has been gradually improving. Patient is respondin g to IV fluids. Patient was found to have hyponatremia and sodium level has gradually improved over last several days. Review of Systems: Denies fever or chills. Physical Examination: Lungs: Clear to auscultation bilaterally. Abdomen: Soft, benign, nontender. Extremities: Minimal edema. Laboratory Data: Blood work: Hemoglobin 15.7, WBC 11.0, platelet count 162,000. Sodium 135, potass ium 3.7, chloride 96, CO2 of 29, BUN 63, creatinine 1.2, calcium 8.9, phosphorus is 4.0, magnesium 2. 0. Impression And Plan: 1.Acute kidney injury, nonoliguric. Serum creatinine level improved from 1.75 to 1.2. Patient will continue adequate hydration. There is persistent hyperazotemia, although BUN is improving from 82 t o 53. 2.Chronic kidney disease stage 3. Avoid nephrotoxic medication. 3.Elevated liver function tests per primary team. 4.Hypertension. Blood pressure controlled. 5.Patient responded to IV fluids. Continue p.o. fluid intake as tolerated. 6.Patient received IV contrast for PE protocol CT scan. Patient subsequently was started on Mucomys t to prevent contrast-induced nephropathy and completed IV fluid. Renal function has stabilized and improved in response to IV hyd ration. LREOY/JUSTINE Voice ID: [id number] Report ID: [id number]
--- NOTE | 2018-10-21 06:27 | DS ---
Date of Discharge: 10/20/2018 Consultants: Dr. Resendiz with Cardiology, Dr. Bailey with Nephrology, Dr. Akbar with Pulmonology. Admitting Diagnoses: 1.Shortness of breath. 2.Bilateral pleural effusion. 3.Acute on chronic diastolic heart failure. 4.Chronic obstructive pulmonary disease exacerbation, acute. 5.Elevated liver enzymes related to alcohol abuse and congestive heart failure. 6.Acute renal injury. 7.Hyponatremia. 8.Gastroesophageal reflux disease. 9.Depression with anxiety. 10.Alcohol abuse. 11.Nicotine dependence with cigarette smoking. Discharge Diagnoses: 1.Acute metabolic encephalopathy, likely related to hyponatremia, urinary tract infection and liver dysfunction. 2.Acute hyponatremia, improving. 3.Acute kidney injury, improving. 4.Acute hepatic failure secondary to alcohol. 5.Acute on chronic systolic congestive heart failure. 6.Acute cystitis without hematuria secondary to Escherichia coli. 7.Elevated troponin level secondary to congestive heart failure. 8.Paroxysmal atrial fibrillation, not a good candidate for anticoagulation. 9.Acute chronic obstructive pulmonary disease exacerbation, improving. 10.Bilateral pleural effusions secondary to congestive heart failure. 11.Gastroesophageal reflux disease without esophagitis. 12.Depression with anxiety. 13.Alcohol abuse. 14.Nicotine dependence with cigarette smoking. Hospital Course: The patient is a 78-year-old female with past medical history of significant alcoho l abuse as well as COPD, anxiety and GERD, comes in with shortness of breath. Her workup revealed ac shannon COPD exacerbation and CHF. The patient also had some acute kidney injury. She was started on di uretics. However, her blood pressure being very low, had to be very cautious. She was very much con fused and this was related to her alcohol. The patient's mental status did improve slightly, however , still remained confused. The patient's liver enzymes continued to deteriorate. No GI was manager of administration. The patient has received Mucomyst initially and was started on steroids. Cardiology and Pulmonolog y were also consulted along with Nephrology. The patient's congestion improved. However, due to her worsening liver enzymes, the patient was thought to be in acute fulminant liver failure, possibly re quiring transplant for life-saving measures. Therefore, after discussion with the family members, th e patient was referred to [facility] for transfer for higher level of care. The patient was accepted by video clerk and hospitalist and was transferred to [facility] in a guarded condition. Physical Examination: General: Awake, alert, oriented to self only, confused, ill-appearing female. CV: S1, S2. Respiratory: Diminished breath sounds. Abdomen: Soft, nontender, nondistended. Positive bowel sounds. Extremities: No clubbing, cyanosis. Trace pedal edema. Neurologic: Nonfocal. Total time spent transferring the patient was 43 minutes. /JUSTINE Voice ID: [id number] Report ID: [id number]
[2018-10-21 15:35] LABS: HBsAG Nonreactive (Nonreactive)
== END 2018-10-20 22:55 | disposition short-term general hospital (02) | DRG 291 ==
LOC: ER 21:00 → ERHOLD 10-17 03:12 → 2ND 10-17 04:30
PROVIDERS: ADMIT Family Medicine; ATTEND Family Medicine
PROC: 5A09357 Assistance with Respiratory Ventilation, Less than 24 Consecutive Hours, Continuous Positive Airway Pressure (ICD-10-PCS; principal; 2018-10-17)
DX: I13.0 Hypertensive heart and chronic kidney disease with heart failure and stage 1 through stage 4 chronic kidney disease, or unspecified chronic kidney disease (principal); I50.23 Acute on chronic systolic (congestive) heart failure; G93.41 Metabolic encephalopathy; J44.1 Chronic obstructive pulmonary disease with (acute) exacerbation; N17.9 Acute kidney failure, unspecified; E87.1 Hypo-osmolality and hyponatremia; N30.00 Acute cystitis without hematuria; N18.3 Chronic kidney disease, stage 3 (moderate); K70.40 Alcoholic hepatic failure without coma; B96.20 Unspecified Escherichia coli [E. coli] as the cause of diseases classified elsewhere; I48.0 Paroxysmal atrial fibrillation; K21.9 Gastro-esophageal reflux disease without esophagitis; F41.8 Other specified anxiety disorders; F17.210 Nicotine dependence, cigarettes, uncomplicated; Z88.0 Allergy status to penicillin; Z85.3 Personal history of malignant neoplasm of breast
CPT/HCPCS: 36415; 51702; 71045; 71275; 74018; 74175; 76700; 80048; 80053; 80061; 80074; 80076; 80307; 80320; 81003; 81015; 82140; 82550; 82553; 82805; 83690; 83735; 83880; 83930; 83935; 84100; 84300; 84439; 84443; 84484; 85025; 85610; 87040; 87077; 87086; 87088; 87186; 93005; 93306; 93925; 94640; 94660; 94760; 96361; 96372; 96374; 97116; 97162; 97530; 99285; J0696; J1650; J2920; J3411; J3420; J3486; J7030; J7512; J7605; Q9967

== ENCOUNTER 2018-11-14 16:26 | Inpatient (IN) | payer OTHER ==
[2018-11-14 17:24] LABS: Absolute Lymphocytes (CBC) 2.8 K/uL (0.7-4.9); Basophils % 1.4 % (0-1.3); Hematocrit 33.3 % (36.0-45.0); Lymphocytes % 35.6 % (15.3-44.8); MPV 7.8 fL (7.6-11.3); RBC Red Blood Cell Count 3.28 M/uL (3.86-4.86)
[2018-11-14 17:28] LABS: Protime INR 1.42
[2018-11-14 17:49] LABS: ALT/SGPT 31 U/L (12-78); AST/SGOT 33 U/L (15-37); Albumin 3.3 g/dL (3.4-5.0); Alkaline Phosphatase 55 U/L (45-117); BUN Blood Urea Nitrogen 35 mg/dL (7-18); Bicarbonate 30 mmol/L (21-32); Bilirubin Direct 0.3 mg/dL (0-0.2); Bilirubin Total 0.8 mg/dL (0.2-1.0); Glucose Level 79 mg/dL (74-106); Lipase 160 U/L (73-393); NT PRO-BNP 10473 pg/mL (<450); Potassium 4.2 mmol/L (3.5-5.1); Protein, Total 7.2 g/dL (6.4-8.2); Sodium Level 139 mmol/L (136-145); Troponin (Emerg Dept Use Only) < 0.02 ng/mL (0.0-0.045)
[2018-11-14] MEDS ORDERED: NA CHLORIDE 0.9% 1,000 ML ONE (18:02)
--- NOTE | 2018-11-14 18:19 | RAD REPORT ---
EXAM DESCRIPTION: Monty Single View11/14/2018 5:29 pm CLINICAL HISTORY: cough COMPARISON: October 2017 FINDINGS: The lungs are hyperaerated. The lungs appear clear of acute infiltrate. The heart is normal size IMPRESSION: No acute abnormalities displayed
--- NOTE | 2018-11-14 18:39 | ER ---
Nurse's Notes [facility] Name: Dominique Mackenzie Age: 78 yrs Sex: Female : 1940 Arrival Date: 11/14/2018 Time: 16:27 Bed 3 Private MD: Diagnosis: Hypotension;Chronic obstructive pulmonary disease with (acute) exacerbation;Weakness;Unspecified kidney failure;Anxiety disorder, unspecified Presentation: 11/14 16:41 Presenting complaint: Patient states: home health PT was at her house, recorded a low iw BP reading in 70's systolic, pt had recent heart stent placement 2 weeks ago, operation supervisor told her she might be bleeding internally, pt c/o SOB, hx of COPD. Transition of care: patient was not received from another setting of care. Onset of symptoms was November 14, 2018. Risk Assessment: Do you want to hurt yourself or someone else? Patient reports no desire to harm self or others. Initial Sepsis Screen: Does the patient meet any 2 criteria? No. Patient's initial sepsis screen is negative. Does the patient have a suspected source of infection? No. Patient's initial sepsis screen is negative. Care prior to arrival: None. 16:41 Method Of Arrival: Wheelchair iw 16:41 Acuity: AB 2 iw Historical: - Allergies: 16:48 PENICILLINS; iw - Home Meds: 16:48 furosemide 20 mg Oral tab 1 tab once daily [Active]; clopidogrel 75 mg oral tab 1 tab iw once daily [Active]; aspirin 81 mg Oral TbEC 1 tab once daily [Active]; folic acid 1 mg Oral tab 1 tab once daily [Active]; spironolactone 25 mg Oral tab 0.5 tab once daily [Active]; Eliquis 2.5 mg oral tab 1 tab 2 times per day [Active]; melatonin 10 mg Oral tab nightly [Active]; unknown antidepressant [Active]; 20:02 lisinopril 2.5 mg oral tab 1 tab once daily [Active]; digoxin 125 mcg Oral tab 0.5 tab fc once daily [Active]; Cymbalta 60 mg oral cpDR 1 cap nightly [Active]; metoprolol tartrate 25 mg Oral tab 1 tab 2 times per day [Active]; - PMHx: 16:48 Anxiety; COPD; Depression; neuropathy; iw 20:02 CAD; fc 20:23 breast CA; fc - PSHx: 16:48 Heart stents; iw - Immunization history:: Adult Immunizations up to date. - Social history:: Smoking status: Patient uses tobacco products, smokes one-half pack cigarettes per day. - Ebola Screening: : Patient negative for fever greater than or equal to 101.5 degrees Fahrenheit, and additional compatible Ebola Virus Disease symptoms Patient denies exposure to infectious person Patient denies travel to an Ebola-affected area in the 21 days before illness onset No symptoms or risks identified at this time. - Family history:: not pertinent. Screenin:20 Abuse screen: Denies threats or abuse. Denies injuries from another. Nutritional jl7 screening: No deficits noted. Tuberculosis screening: No symptoms or risk factors identified. Fall Risk IV access (20 points). Total Neal Fall Scale indicates No Risk (0-24 pts). Assessment: 17:00 General: Appears in no apparent distress. uncomfortable, Behavior is calm, cooperative, jl7 appropriate for age. Pain: Denies pain. Neuro: Level of Consciousness is awake, alert, obeys commands, Oriented to person, place, time, situation. Cardiovascular: Heart tones S1 S2 present Patient's skin is warm and dry. Respiratory: Airway is patent Respiratory effort is even, unlabored, Respiratory pattern is symmetrical, tachypnea Breath sounds with wheezes bilaterally. GI: No signs and/or symptoms were reported involving the gastrointestinal system. : No signs and/or symptoms were reported regarding the genitourinary system. EENT: No signs and/or symptoms were reported regarding the EENT system. Derm: Skin is pink, warm \\T\\ dry. Musculoskeletal: No signs and/or symptoms reported regarding the musculoskeletal system. 18:00 Reassessment: Patient appears in no apparent distress at this time. No changes from jl7 previously documented assessment. Patient and/or family updated on plan of care and expected duration. Pain level reassessed. Patient is alert, oriented x 3, equal unlabored respirations, skin warm/dry/pink. 18:20 Reassessment: Dr. Velasco at bedside. jl7 18:40 Reassessment: Pt reports "I feel really anxious." Family reports they tried to give her jl7 Xanax the last time she was in the hospital and it knocked her out, ERP notified, see MAR for orders. 19:08 Reassessment: Dr Vivar in to see pt and talk with family. General: Appears in no fc apparent distress. comfortable, slender, Behavior is calm, cooperative, appropriate for age. Pain: Denies pain. Neuro: Level of Consciousness is awake, alert, obeys commands, Oriented to person, place, time, situation, Appropriate for age. Cardiovascular: Heart tones S1 S2 Capillary refill < 3 seconds. Respiratory: Airway is patent Trachea midline Respiratory effort is even, unlabored, Respiratory pattern is regular, symmetrical, Breath sounds are clear bilaterally. GI: Abdomen is flat, Bowel sounds present X 4 quads. Abd is soft and non tender X 4 quads. : No deficits noted. EENT: No deficits noted. Derm: Skin is pink, warm \\T\\ dry. Musculoskeletal: No signs and/or symptoms reported regarding the musculoskeletal system. 19:50 Reassessment: Pt is currently also wearing a life vest that Dr Vivar is aware of. fc 19:55 Reassessment: No changes from previously documented assessment. Patient and/or family fc updated on plan of care and expected duration. Pain level reassessed. Patient is alert, oriented x 3, equal unlabored respirations, skin warm/dry/pink. Family remains at bedside as pt is pending admission. Vital Signs: 16:48 BP 91 / 52; Pulse 83; Resp 24 S; Pulse Ox 100% on R/A; Weight 39.46 kg; Height 5 ft. 4 iw in. (162.56 cm); Pain 0/10; 17:30 BP 89 / 42; Pulse 84; Resp 16 S; Pulse Ox 100% on R/A; jl7 18:37 BP 92 / 73; Pulse 86; Resp 16 S; Pulse Ox 100% on R/A; jl7 19:15 BP 101 / 59; Pulse 82; Resp 22; Pulse Ox 98% on R/A; fc 19:56 BP 89 / 75; Pulse 88; Resp 22; Pulse Ox 96% on R/A; fc 20:15 BP 92 / 65; Pulse 87; Resp 20; Temp 98.2(O); Pulse Ox 100% on R/A; Pain 0/10; fc 16:48 Body Mass Index 14.93 (39.46 kg, 162.56 cm) iw ED Course: 16:27 Patient arrived in ED. as 16:34 Marquis Briscoe, RN is Primary Nurse. bp 16:37 Dennis Velasco MD is Attending Physician. cesar 16:43 Triage completed. iw 16:49 Arm band placed on. iw 17:00 Patient has correct armband on for positive identification. Placed in gown. Bed in low jl7 position. Call light in reach. Side rails up X 1. night monitor on. Pulse ox on. NIBP on. Warm blanket given. 17:19 Initial lab(s) drawn, by me, sent to lab. Inserted saline lock: 20 gauge in left ms antecubital area, using aseptic technique. Blood collected. 17:28 XRAY Chest (1 view) In Process Unspecified. EDMS 17:30 Missed attempt(s): 22 gauge in left antecubital area. Bleeding controlled, band aid bp applied, catheter tip intact. 17:48 EKG done, by residential appliance repair technician. reviewed by Dennis Velasco MD. 3 18:36 Araceli Ha MD is Hospitalizing Provider. cesar 18:36 Hospitalizing Provider role handed off by Araceli Ha MD cesar 18:36 Arnol Vivar DO is Hospitalizing Provider. cesar 18:36 Araceli Ha MD is Hospitalizing Provider. cesar 18:37 Arnol Vivar DO is Hospitalizing Provider. cesar 19:50 No provider procedures requiring assistance completed. Patient admitted, IV remains in fc place. Administered Medications: 18:24 Drug: NS 0.9% 500 ml Route: IV; Rate: bolus; Site: left antecubital; bp 18:45 Follow up: Response: No adverse reaction; No change in condition; IV Status: Completed infusion; IV Intake: 500ml 18:24 Drug: NS 0.9% 1000 ml Route: IV; Rate: 125 ml/hr; Site: left antecubital; bp 20:23 Follow up: IV Status: Infusion continued upon admission; IV Intake: 200ml 18:41 Drug: Xopenex 1.25 mg Route: Inhalation; jl7 19:20 Follow up: Response: No adverse reaction jl7 18:41 Drug: AtroVENT Aerosol 0.5 mg Route: Inhalation; jl7 19:20 Follow up: Response: No adverse reaction jl7 18:42 Drug: SOLU-Medrol 2 mg/kg Route: IVP; Site: left antecubital; [facility] 19:20 Follow up: Response: No adverse reaction jl7 18:42 Not Given (Duplicate Order): Ativan 0.5 mg IVP once [facility] 18:43 Drug: Ativan 0.25 mg Route: IVP; Site: left antecubital; jl7 18:50 Follow up: Response: No adverse reaction; Marked relief of symptoms jl7 18:47 Drug: Pepcid 20 mg Route: IVP; Site: left antecubital; jl7 19:19 Follow up: Response: No adverse reaction jl Intake: 18:45 IV: 500ml; Total: 500ml. 20:23 IV: 200ml; Total: 700ml. Outcome: 18:38 Decision to Hospitalize by Provider. [facility] 20:20 Admitted to Tele accompanied by tech, room 412, Report called to Maya SHANE 20:20 Condition: good 20:20 Discharge instructions given to patient, family, Instructed on the need for admit, Demonstrated understanding of instructions. 20:50 Patient left the ED. fc Signatures: Dispatcher [employer] EDDennis Yeung MD MD cha Chretien, Felicia RN ACOSTA Oly Arndt Irene, RN RN Eusebia Calderon ms, Jahala RN ACOSTA jl7 Marquis Briscoe RN RN bp Montes, Shakira 3 Corrections: (The following items were deleted from the chart) 20:02 16:48 Home Meds: lisinopril 20 mg Oral tab 1 tab once daily; [facility] 20:02 16:48 Home Meds: digoxin 125 mcg Oral tab 1 tab once daily; [facility] 20:02 16:48 Home Meds: Cymbalta 60 mg oral cpDR 1 cap once daily; [facility]
--- NOTE | 2018-11-14 18:40 | EDPHYS ---
Physician Documentation [facility] Name: Dominique Mackenzie Age: 78 yrs Sex: Female : 1940 Arrival Date: 11/14/2018 Time: 16:27 Bed 3 Private MD: ED Physician Dennis Velasco HPI: 11/14 18:33 This 78 yrs old Female presents to ER via Wheelchair with complaints of Low cesar Blood Pressure. 18:33 The patient has shortness of breath with light activity. Onset: The symptoms/episode cesar began/occurred 2 day(s) ago. The patient's shortness of breath has no apparent modifying factors. The patient presents to the emergency department with anxiety. Past psychiatric history: Prior diagnosis: no previous psychiatric diagnosis known. Associated signs and symptoms: Pertinent positives: non-productive cough, nausea. Historical: - Allergies: 16:48 PENICILLINS; iw - Home Meds: 16:48 furosemide 20 mg Oral tab 1 tab once daily [Active]; clopidogrel 75 mg oral tab 1 tab iw once daily [Active]; aspirin 81 mg Oral TbEC 1 tab once daily [Active]; folic acid 1 mg Oral tab 1 tab once daily [Active]; spironolactone 25 mg Oral tab 0.5 tab once daily [Active]; Eliquis 2.5 mg oral tab 1 tab 2 times per day [Active]; melatonin 10 mg Oral tab nightly [Active]; unknown antidepressant [Active]; 20:02 lisinopril 2.5 mg oral tab 1 tab once daily [Active]; digoxin 125 mcg Oral tab 0.5 tab fc once daily [Active]; Cymbalta 60 mg oral cpDR 1 cap nightly [Active]; metoprolol tartrate 25 mg Oral tab 1 tab 2 times per day [Active]; - PMHx: 16:48 Anxiety; COPD; Depression; neuropathy; iw 20:02 CAD; fc 20:23 breast CA; fc - PSHx: 16:48 Heart stents; iw - Immunization history:: Adult Immunizations up to date. - Social history:: Smoking status: Patient uses tobacco products, smokes one-half pack cigarettes per day. - Ebola Screening: : Patient negative for fever greater than or equal to 101.5 degrees Fahrenheit, and additional compatible Ebola Virus Disease symptoms Patient denies exposure to infectious person Patient denies travel to an Ebola-affected area in the 21 days before illness onset No symptoms or risks identified at this time. - Family history:: not pertinent. ROS: 18:33 Constitutional: Negative for fever, chills, and weight loss, Eyes: Negative for injury, cesar pain, redness, and discharge, ENT: Negative for injury, pain, and discharge, Neck: Negative for injury, pain, and swelling, Cardiovascular: Negative for chest pain, palpitations, and edema, Abdomen/GI: Negative for abdominal pain, nausea, vomiting, diarrhea, and constipation, Back: Negative for injury and pain, : Negative for injury, bleeding, discharge, and swelling, MS/Extremity: Negative for injury and deformity, Skin: Negative for injury, rash, and discoloration, Neuro: Negative for headache, weakness, numbness, tingling, and seizure, Allergy/Immunology: Negative for hives, rash, and allergies, Endocrine: Negative for neck swelling, polydipsia, polyuria, polyphagia, and marked weight changes, Hematologic/Lymphatic: Negative for swollen nodes, abnormal bleeding, and unusual bruising. 18:33 Respiratory: Positive for cough, shortness of breath, at rest. 18:33 Neuro: Positive for weakness. Exam: 18:33 Constitutional: This is a well developed, well nourished patient who is awake, alert, cesar and in no acute distress. Head/Face: Normocephalic, atraumatic. Eyes: Pupils equal round and reactive to light, extra-ocular motions intact. Lids and lashes normal. Conjunctiva and sclera are non-icteric and not injected. Cornea within normal limits. Periorbital areas with no swelling, redness, or edema. ENT: Nares patent. No nasal discharge, no septal abnormalities noted. Tympanic membranes are normal and external auditory canals are clear. Oropharynx with no redness, swelling, or masses, exudates, or evidence of obstruction, uvula midline. Mucous membranes moist. Neck: Trachea midline, no thyromegaly or masses palpated, and no cervical lymphadenopathy. Supple, full range of motion without nuchal rigidity, or vertebral point tenderness. No Meningismus. Chest/axilla: Normal chest wall appearance and motion. Nontender with no deformity. No lesions are appreciated. Cardiovascular: Regular rate and rhythm with a normal S1 and S2. No gallops, murmurs, or rubs. Normal PMI, no JVD. No pulse deficits. Back: No spinal tenderness. No costovertebral tenderness. Full range of motion. Female : Normal external genitalia. Skin: Warm, dry with normal turgor. Normal color with no rashes, no lesions, and no evidence of cellulitis. MS/ Extremity: Pulses equal, no cyanosis. Neurovascular intact. Full, normal range of motion. Neuro: Awake and alert, GCS 15, oriented to person, place, time, and situation. Cranial nerves II-XII grossly intact. Motor strength 5/5 in all extremities. Sensory grossly intact. Cerebellar exam normal. Normal gait. 18:33 Respiratory: the patient does not display signs of respiratory distress, Respirations: labored breathing, that is mild, Breath sounds: decreased breath sounds, that are mild, rhonchi, that are mild, Respiratory rate: 24 18:33 Musculoskeletal/extremity: DVT Exam: No signs of deep vein thrombosis. no pain, no swelling, no tenderness, negative Homans' sign noted on exam, no appreciated bluish discoloration, no erythema, no increased warmth. Vital Signs: 16:48 BP 91 / 52; Pulse 83; Resp 24 S; Pulse Ox 100% on R/A; Weight 39.46 kg; Height 5 ft. 4 iw in. (162.56 cm); Pain 0/10; 17:30 BP 89 / 42; Pulse 84; Resp 16 S; Pulse Ox 100% on R/A; jl7 18:37 BP 92 / 73; Pulse 86; Resp 16 S; Pulse Ox 100% on R/A; jl7 19:15 BP 101 / 59; Pulse 82; Resp 22; Pulse Ox 98% on R/A; fc 19:56 BP 89 / 75; Pulse 88; Resp 22; Pulse Ox 96% on R/A; fc 20:15 BP 92 / 65; Pulse 87; Resp 20; Temp 98.2(O); Pulse Ox 100% on R/A; Pain 0/10; fc 16:48 Body Mass Index 14.93 (39.46 kg, 162.56 cm) iw MDM: 16:37 Patient medically screened. [facility] 18:35 Data reviewed: vital signs, nurses notes, lab test result(s), EKG, radiologic studies, [facility] plain films. 11/14 16:38 Order name: Basic Metabolic Panel; Complete Time: 18:06 [facility] 11/14 16:38 Order name: CBC with Diff; Complete Time: 18:06 [facility] 11/14 16:38 Order name: LFT's; Complete Time: 18:06 [facility] 11/14 16:38 Order name: Magnesium; Complete Time: 18:06 [facility] 11/14 16:38 Order name: NT PRO-BNP; Complete Time: 18:06 [facility] 11/14 16:38 Order name: PT-INR; Complete Time: 18:06 [facility] 11/14 16:38 Order name: Troponin (emerg Dept Use Only); Complete Time: 18:06 [facility] 11/14 16:38 Order name: XRAY Chest (1 view); Complete Time: 18:41 [facility] 11/14 16:38 Order name: Lipase; Complete Time: 18:06 [facility] 11/14 18:13 Order name: Digoxin [facility] 11/14 16:38 Order name: EKG; Complete Time: 16:40 [facility] 11/14 16:38 Order name: Cardiac monitoring; Complete Time: 16:47 [facility] 11/14 16:38 Order name: EKG - Nurse/Tech; Complete Time: 18:24 [facility] 11/14 16:38 Order name: IV Saline Lock; Complete Time: 17:19 [facility] 11/14 16:38 Order name: Labs collected and sent; Complete Time: 17:19 [facility] 11/14 16:38 Order name: O2 Per Protocol; Complete Time: 16:48 [facility] 11/14 16:38 Order name: O2 Sat Monitoring; Complete Time: 16:48 [facility] Administered Medications: 18:24 Drug: NS 0.9% 500 ml Route: IV; Rate: bolus; Site: left antecubital; bp 18:45 Follow up: Response: No adverse reaction; No change in condition; IV Status: Completed fc infusion; IV Intake: 500ml 18:24 Drug: NS 0.9% 1000 ml Route: IV; Rate: 125 ml/hr; Site: left antecubital; bp 20:23 Follow up: IV Status: Infusion continued upon admission; IV Intake: 200ml fc 18:41 Drug: Xopenex 1.25 mg Route: Inhalation; jl7 19:20 Follow up: Response: No adverse reaction [facility] 18:41 Drug: AtroVENT Aerosol 0.5 mg Route: Inhalation; jl7 19:20 Follow up: Response: No adverse reaction jl7 18:42 Drug: SOLU-Medrol 2 mg/kg Route: IVP; Site: left antecubital; jl7 19:20 Follow up: Response: No adverse reaction jl7 18:42 Not Given (Duplicate Order): Ativan 0.5 mg IVP once cesar 18:43 Drug: Ativan 0.25 mg Route: IVP; Site: left antecubital; jl7 18:50 Follow up: Response: No adverse reaction; Marked relief of symptoms jl7 18:47 Drug: Pepcid 20 mg Route: IVP; Site: left antecubital; jl7 19:19 Follow up: Response: No adverse reaction jl Disposition: 11/14/18 18:38 Hospitalization ordered by Arnol Vivar for Observation. Preliminary diagnosis are Hypotension, Chronic obstructive pulmonary disease with (acute) exacerbation, Weakness, Unspecified kidney failure, Anxiety disorder, unspecified. - Bed requested for Telemetry/MedSurg (observation). - Status is Observation. fc - Condition is Stable. - Problem is new. - Symptoms have improved. UTI on Admission? No Signatures: Dispatcher [employer] EDMS Dennis Velasco MD MD cha Chretien, Felicia, RN RN fc Ale Merritt RN RN Coleen Calle RN RN Beatriz King RN RN jl7 Peltier, Brian, RN RN bp Corrections: (The following items were deleted from the chart) 19:29 18:38 Hospitalization Ordered by Arnol Vivar DO for Inpatient Admission. Preliminary cesar diagnosis is Hypotension; Chronic obstructive pulmonary disease with (acute) exacerbation; Weakness; Unspecified kidney failure; Anxiety disorder, unspecified. Bed requested for Telemetry/MedSurg (Inpatient). Status is Inpatient Admission. Condition is Stable. Problem is new. Symptoms have improved. UTI on Admission? No. cesar 19:46 19:29 11/14/2018 18:38 Hospitalization Ordered by Arnol Vivar DO for Observation. cg Preliminary diagnosis is Hypotension; Chronic obstructive pulmonary disease with (acute) exacerbation; Weakness; Unspecified kidney failure; Anxiety disorder, unspecified. Bed requested for Telemetry/MedSurg (observation). Status is Observation. Condition is Stable. Problem is new. Symptoms have improved. UTI on Admission? No. cesar 20:02 16:48 Home Meds: lisinopril 20 mg Oral tab 1 tab once daily; [facility] 20:02 16:48 Home Meds: digoxin 125 mcg Oral tab 1 tab once daily; [facility] 20:02 16:48 Home Meds: Cymbalta 60 mg oral cpDR 1 cap once daily; [facility] 20:50 19:46 11/14/2018 18:38 Hospitalization Ordered by Arnol Vivar DO for Observation. fc Preliminary diagnosis is Hypotension; Chronic obstructive pulmonary disease with (acute) exacerbation; Weakness; Unspecified kidney failure; Anxiety disorder, unspecified. Bed requested for Telemetry/MedSurg (observation). Status is Observation. Condition is Stable. Problem is new. Symptoms have improved. UTI on Admission? No. cg
[2018-11-14] MEDS ORDERED: LEVALBUTEROL 1.25 MG/3 ML NEB ONE (18:42)
[2018-11-14] MEDS ORDERED: LORazepam 2 MG/ML VIAL ONE (18:42)
[2018-11-14] MEDS ORDERED: IPRATROPIUM BROM 0.5MG/2.5ML ONE (18:42)
[2018-11-14] MEDS ORDERED: FAMOTIDINE 20 MG/2 ML VIAL IV ONE (18:43)
[2018-11-14] MEDS ORDERED: METHYLPREDNISOLONE 40 MG INJ ONE (18:43)
--- NOTE | 2018-11-14 20:11 | P.HP ---
Certification for Inpatient Patient admitted to: Observation With expected LOS: <2 Midnights Patient will require the following post-hospital care: None Practitioner: I am a practitioner with admitting privileges, knowledge of patient current condition, hospital course, and medical plan of care. Services: Services provided to patient in accordance with Admission requirements found in Title 42 Section 412.3 of the Code of Federal Regulations Patient History Date of Service: 11/14/18 Primary Care Provider: Dr. Diaz Reason for admission: Low blood pressure History of Present Illness: 78-year-old female with multiple medical problems including systolic congestive heart failure, CAD with recent stent, atrial fibrillation on chronic anti coagulation therapy, recent life vest placement, and COPD. Patient had been hospitalized in our facility in October of 2018. She had been transferred to [facility] for further evaluation including acute hepatitis, acute renal failure, worsening congestive heart failure, and elevated troponin with suspected CAD. Since that time she had a stent placed. She now has the life vest. She was transferred to a skilled facility then eventually home. Over the last several days her daughters had noted decreased blood pressures. Today physical therapy came to work with the patient. They noted that her blood pressure was low. She was told to go to the ER for further evaluation. Daughters also had noted decreased appetite. She denies any chest pain, shortness of breath. In the ER patient was evaluated. Blood pressure slightly low. Patient was given IV fluid bolus in the emergency room. Her condition remained stable. Hemoglobin 11, white count 7.2. Sodium 139, potassium 4.2, BUN of 35, creatinine 1.76 with a GFR of 28. Blood sugar 79. Troponin unremarkable. BNP elevated over 10,000. Lipase unremarkable. Digoxin level within normal range. Chest x-ray unremarkable at this time. Patient was admitted for observation to further evaluate and monitor. When saw the patient ER, she appeared stable. Family at bedside. Patient admits to poor oral intake. Patient on multiple medications since last hospitalized. Allergies Penicillins Allergy (Intermediate, Verified 10/17/18 06:05) Itching/Hives/Rash Home medications list reviewed: Yes Home Medications: Albuterol Sulfate [Albuterol Sulfate 0.083% Neb Soln] 1 amp NEB Q8H 10/18/18 Duloxetine HCl [Cymbalta] 60 mg PO BEDTIME 10/18/18 Fluticasone/Umeclidin/Vilanter [Trelegy Ellipta 100-62.5-25] 1 puff IH DAILY 12/27 Ipratropium Neb [Atrovent*] 1 amp NEB Q8H 10/18/18 Melatonin 5 mg PO BEDTIME 10/18/18 Mirtazapine 30 mg PO BEDTIME 10/18/18 Nitrofuran Macro [Macrobid*] 1 cap PO Q12H 10/18/18 Omeprazole [Prilosec] 40 mg PO DAILY 10/18/18 Prednisone [Deltasone] 3 tab PO DAILY 10/18/18 - Past Medical/Surgical History Diabetic: No -: COPD -: Depression with anxiety -: History of breast cancer -: Neuropathy -: GERD -: Tobacco abuse -: CAD with stent, now with life vest -: Systolic CHF with ejection fraction around 15% -: Atrial fibrillation on chronic anti coagulation therapy -: Former alcohol use -: Former tobacco use -: Cholecystectomy -: Appendectomy -: Right mastectomy -: Cardiac stent Psychosocial/ Personal History: Patient is a , she has 3 children. She currently lives with 1 of the daughters - Family History Family History: Reviewed- Non-Contributory - Family History Mother -: Other (see notes) Notes: Dementia and Alzheimers - Social History Smoking Status: Former smoker Alcohol use: No CD- Drugs: No Caffeine use: Yes Place of Residence: Home Review of Systems General: Weakness, As per HPI Eyes: Unremarkable ENT: Unremarkable Respiratory: Unremarkable Cardiovascular: As per HPI Gastrointestinal: Unremarkable Genitourinary: Unremarkable Musculoskeletal: Unremarkable Integumentary: Unremarkable Neurological: Unremarkable Lymphatics: Unremarkable Physical Examination - Physical Exam General: Alert, In no apparent distress, Oriented x3, Cooperative HEENT: Atraumatic, Normocephalic, PERRLA, Other (Dry Mucous membranes) Neck: Supple, No Thyromegaly Respiratory: Clear to auscultation bilaterally, Normal air movement Cardiovascular: Normal pulses, Regular rate/rhythm Gastrointestinal: Normal bowel sounds, Soft and benign, Non-distended, No tenderness, No masses, No rebound, No guarding Musculoskeletal: No erythema, No tenderness, No warmth Integumentary: No tenderness/swelling, No erythema, No warmth, No cyanosis Neurological: Normal speech, Normal strength at 5/5 x4 extr, Normal tone, Normal affect - Studies Laboratory Data (last 24 hrs) 11/14/18 17:14: PT 16.5 H, INR 1.42 11/14/18 17:14: WBC 7.7, Hgb 11.4 L, Hct 33.3 L, Plt Count 301 11/14/18 17:14: Sodium 139, Potassium 4.2, BUN 35 H, Creatinine 1.76 H, Glucose 79, Magnesium 2.0, Total Bilirubin 0.8, AST 33, ALT 31, Alkaline Phosphatase 55 , Lipase 160 Assessment and Plan - Plan Impression: Hypotension likely related to overmedication with history of hypertension Acute on chronic renal disease stage IV Chronic systolic CHF, ejection fraction 15% now with life vest CAD with recent stent Chronic atrial fibrillation on chronic anti coagulation therapy Anemia of chronic disease like iron deficient COPD Depression with anxiety GERD Chronic pain Mild malnutrition Former tobacco/alcohol use Plan: Hypotension likely related to overmedication with history of hypertension: Patient admitted for further evaluation and treatment. Patient appears slightly dehydrated with noted abnormal renal function from prior hospitalization. Patient likely overmedicated with multiple new medications. No need for DVT prophylaxis since the patient is taking Eliquis/Plavix. Medications reviewed. Will adjust blood pressure medication. Will decrease metoprolol to 12.5 mg 1 pill twice daily. Will also discontinue Aldactone 12.5 mg daily. Will continue to monitor her blood pressures closely. Will continue with lisinopril 2.5 mg daily. Will hold blood pressure medication if systolic less than 120. If stable with changes in medication anticipate discharge tomorrow. Daytime hospitalist-Dr. Rutherford will assume care tomorrow. Acute on chronic renal disease, stage 4: Patient appears slightly dehydrated. Patient given IV fluid bolus in the emergency room. Will teach on fluid restriction. Aldactone discontinued. May need to hold blood pressure medication-lisinopril at discharge especially if blood pressure remains less than 120 systolic. Chronic systolic CHF, ejection fraction 15% now with life vest: Patient will continue with life vest. Will continue with 1500 cc per day fluid restriction. Aldactone has been discontinued due to low blood pressure and acute on chronic renal disease. Patient still takes Lasix 20 mg daily. Will continue to monitor electrolytes closely. Will continue with replacement protocol. Patient may be a candidate for Entresto in the future. This can be further addressed by cardiology as an outpatient. CAD with recent stent: Patient with recent stent. Patient on aspirin and Plavix. Will discontinue aspirin but continue with Plavix since the patient also takes Eliquis for atrial fibrillation. Will discuss with cardiology. Likely no need to take aspirin at discharge. Chronic atrial fibrillation on chronic anti coagulation therapy: Continue with Eliquis. Patient also takes digoxin. This will be continued. Anemia of chronic disease like iron deficient: Will check iron and B12 studies. If abnormal patient may require replacement. Continue monitor closely. COPD: Will provide COPD treatment. Maintain sats above 94%. Depression with anxiety: Continue with home medications Cymbalta 60 mg daily. Will provide Xanax as needed. GERD: Will provide medication Protonix. Chronic pain: Will continue with her Cymbalta. Mild malnutrition: Encourage oral intake. Will start Ensure 3 times a day. This can be managed as an outpatient. Former tobacco/alcohol use: Continue with alcohol and tobacco cessation. Discharge Plan: Home Plan to discharge in: 24 Hours - Advance Directives Does patient have a Living Will: No Does patient have a Durable POA for Healthcare: No - Code Status/Comfort Care Code Status Assessed: Yes (Patient is full code) Time Spent Managing Pts Care (In Minutes): 55
[2018-11-14] MEDS ORDERED: ENSURE CLEAR 200 ML CAN PO SCH (21:09)
[2018-11-14] MEDS ORDERED: ACETAMINOPHEN 500 MG TAB PO PRN (21:09)
[2018-11-14] MEDS ORDERED: ONDANSETRON 4 MG/2 ML VIAL IV PRN (21:09)
[2018-11-14] MEDS: APIXABAN 2.5 MG TABLET PO SCH (22:00)
[2018-11-14] MEDS: MELATONIN 5 MG TABLET PO SCH (22:00)
[2018-11-14] MEDS: DULOXETINE 30 MG CAP PO SCH (22:00)
[2018-11-14] MEDS: ARFORMOTEROL TARTRATE 15 MCG/2 ML VIAL.NEB NEB SCH (22:09)
[2018-11-14 22:52] LABS: Ferritin 178.8 ng/mL (8-388)
[2018-11-14] MEDS: ENSURE ENLIVE 237 ML CAN PO SCH (23:00)
[2018-11-14 23:04] LABS: CKMB Creatine Kinase MB 1.3 ng/mL (0.3-3.6); Creatine Phosphokinase 32 U/L (26-192); Troponin I < 0.02 ng/mL (0.0-0.045)
[2018-11-15 01:48] LABS: Urine Appearance CLOUDY; Urine Bilirubin NEGATIVE (NEG); Urine Blood TRACE (NEG); Urine Color YELLOW; Urine Glucose NEGATIVE (NEG); Urine Protein NEGATIVE (NEG); Urine Specific Gravity 1.015 (1.005-1.030); Urine pH 5.5 (5.0-7.0)
[2018-11-15 01:59] LABS: Urine Microscopic Reflex ORDER UMIC
[2018-11-15 02:36] LABS: Urine Bacteria <20 /HPF (<20); Urine Culture Reflex Order REFLEXED; Urine Yeast MANY (NONE SEEN); Urine Yeast with Hyphae PRESENT
[2018-11-15 02:37] LABS: Urine RBC <5 /HPF (NONE SEEN)
[2018-11-15 05:52] LABS: Absolute Lymphocytes (CBC) 0.9 K/uL (0.7-4.9); Basophils % 0.3 % (0-1.3); Lymphocytes % 23.3 % (15.3-44.8); MPV 7.9 fL (7.6-11.3); RBC Red Blood Cell Count 2.82 M/uL (3.86-4.86)
[2018-11-15] MEDS ORDERED: METOPROLOL TAR 25 MG TAB PO SCH (06:00)
[2018-11-15 06:20] LABS: Magnesium 1.7 mg/dL (1.8-2.4); Potassium 4.5 mmol/L (3.5-5.1)
[2018-11-15 06:22] LABS: CKMB Creatine Kinase MB 1.2 ng/mL (0.3-3.6); Creatine Phosphokinase 26 U/L (26-192); Troponin I < 0.02 ng/mL (0.0-0.045)
--- NOTE | 2018-11-15 07:47 | EKG ---
Test Date: 2018-11-14 Test Time: 17:35:19 Home Care Liaison: JASON MEASUREMENT RESULTS: Intervals: Rate: 88 DE: 152 QRSD: 98 QT: 362 QTc: 438 [place]: P: 77 DE: 152 QRS: -74 T: 84 INTERPRETIVE STATEMENTS: Sinus rhythm with premature atrial complexes Left anterior fascicular block Anterior infarct, age undetermined ST & T wave abnormality, consider lateral ischemia Abnormal ECG Compared to ECG 10/17/2018 07:45:03 Atrial premature complex(es) now present Left anterior fascicular block now present Sinus tachycardia no longer present Electronically Signed On 11-15-18 07:46:37 CDT by Bc Resendiz
[2018-11-15] MEDS: FOLIC ACID 1 MG TABLET PO SCH (07:55)
[2018-11-15] MEDS: LISINOPRIL 5 MG TAB PO SCH (07:56)
[2018-11-15] MEDS: CLOPIDOGREL 75 MG TABLET PO SCH (07:57)
[2018-11-15] MEDS: APIXABAN 2.5 MG TABLET PO SCH ×2 (07:57→21:18)
[2018-11-15] MEDS: DIGOXIN 0.125 MG TABLET PO SCH (07:57)
[2018-11-15] MEDS: ENSURE ENLIVE 237 ML CAN PO SCH ×3 (07:58→21:19)
--- NOTE | 2018-11-15 08:21 | RAD REPORT ---
EXAM DESCRIPTION: RAD - Chest Pa And Lat (2 Views) - 11/15/2018 6:08 am CLINICAL HISTORY: follow up CHF COMPARISON: November 14 TECHNIQUE: PA and lateral views of the chest were obtained. FINDINGS: The lungs are underinflated compared to the portable examination. No new mass or consolida tion. There is questionable increase in the interstitial markings in each upper lobe. Heart size is normal and central vasculature is within normal limits. No pleural effusion or pneumothorax seen. No acute bony finding noted. No acute aortic finding. External security monitor/defibrillator is in p lace. IMPRESSION: Under inflated chest examination shows slightly increased upper lobe interstitial markin gs. Findings may reflect or represent minimal interstitial edema or infiltrate. No significant failure or volume overload seen.
[2018-11-15] MEDS: ARFORMOTEROL TARTRATE 15 MCG/2 ML VIAL.NEB NEB SCH ×2 (08:24→19:50)
[2018-11-15] MEDS ORDERED: MAGNESIUM SULFATE 1 gm IVPB 1 GM/100 ML BAG IV ONE (09:00)
[2018-11-15] MEDS ORDERED: FUROSEMIDE 20 MG TABLET PO SCH (09:00)
[2018-11-15] MEDS: NA CHLORIDE 0.9% 1,000 ML IV SCH (14:03)
[2018-11-15 16:14] LABS: Folic Acid, (Folate) > 20.0 ng/mL (3.1-17.5)
[2018-11-15] MEDS: METOPROLOL TAR 25 MG TAB PO SCH (17:25)
--- NOTE | 2018-11-15 19:54 | PN ---
History Of Present Illness: Currently, patient is lying in bed. She was sleeping but very easily ar ousable. She had a good morning sleep. She does not have any chest pain or abdominal pain. She has no dizziness, but she was in bed and nobody tried to move her. She denies any nausea or vomiting. Her daughter is at the bedside. Review of Systems: Otherwise as below. Physical Examination: Vital Signs: Today, blood pressure 83/48, respiratory rate 17, pulse 86, temperature 98. General: Patient is alert, oriented x3. Does not look in any distress. HEENT: Atraumatic, normocephalic. PERRLA. Oral mucosa moist. Neck: Supple. No JVD. No bruits. Chest: Clear to auscultation. Good air entry. Heart: Regular rate and rhythm. S1, S2 normal. No gallop or murmur. Abdomen: Soft, nontender. No masses. No hepatosplenomegaly. Positive bowel sounds. Extremities: No clubbing, no cyanosis, no edema. No calf tenderness. Neurologic: Grossly intact. Skin: Diffuse bruising. Laboratory Data And Imaging: Today, CBC with white blood cells 4.1, hemoglobin 9.8, platelets 234. Chemistry within normal limits except for BUN of 41, creatinine 1.97, GFR of 25, glucose 159. Magnes ium 1.7. BNP yesterday was 10,473. Chest x-ray did not show volume overload. Assessment And Plan: 1.Hypotension due to possibly over-medication as well as dehydration, so the patient continues to meraz ve low blood pressure. I will continue holding her blood pressure medication. Patient is on metopro lol 12.5 twice a day. will be on hold. I will start her on IV fluids at a low rate of 75 cc/hour overnight because blood pressure is low and kidney function also had been normal at baseline before October. The patient already received a bolus in the ER. 2.Renal insufficiency, getting worse as well as BUN getting higher. I will proceed with normal sali ne at 75 cc/hour for now. BNP is elevated but there are no signs of congestive heart failure on ches t x-ray, could be because of renal insufficiency. 3.History of atrial fibrillation. She is on digoxin. Continue. We may have to hold if the creatin ine gets above 2. She is also on Eliquis 2.5 mg twice a day. . We will stop her Lasix. 4.History of coronary artery disease with recent stent. Patient is on aspirin and Plavix. __ hold her aspirin. She is already on Eliquis for atrial fibrillation as well. 5.Anemia. Iron profile was normal. Patient has microcytosis. We will check thyroid as well as fol ic acid if not done. Patient's vitamin B12 was normal. We will order smear and stool occult blood. 6.Acid reflux, on Protonix. 7.Chronic pain, on Cymbalta. 8.Cachexia. Advised to drink Ensure. 9.History of alcohol as well as smoking. Advised to quit. 10.History of depression and anxiety. Continue Cymbalta 60 mg daily as well as p.r.n. Xanax. 11.Deep vein thrombosis prophylaxis. No need. Patient is on Eliquis. DAVON/JUSTINE Voice ID: [id number] Report ID: [id number]
[2018-11-15] MEDS: DULOXETINE 30 MG CAP PO SCH (21:19)
[2018-11-15] MEDS: MELATONIN 5 MG TABLET PO SCH (21:19)
[2018-11-16] MEDS: NA CHLORIDE 0.9% 1,000 ML IV SCH ×2 (02:39→16:30)
[2018-11-16] MEDS: METOPROLOL TAR 25 MG TAB PO SCH ×2 (05:25→16:29)
[2018-11-16 05:52] VITALS: BMI 16.9
[2018-11-16] MEDS: IPRATROPIUM BROM 0.5MG/2.5ML NEB PRN (08:10)
[2018-11-16] MEDS: ARFORMOTEROL TARTRATE 15 MCG/2 ML VIAL.NEB NEB SCH ×2 (08:10→20:00)
[2018-11-16] MEDS: APIXABAN 2.5 MG TABLET PO SCH ×2 (08:22→20:11)
[2018-11-16] MEDS: DIGOXIN 0.125 MG TABLET PO SCH (08:22)
[2018-11-16] MEDS: FOLIC ACID 1 MG TABLET PO SCH (08:23)
[2018-11-16] MEDS: CLOPIDOGREL 75 MG TABLET PO SCH (08:23)
[2018-11-16] MEDS: ENSURE ENLIVE 237 ML CAN PO SCH ×3 (08:23→20:13)
[2018-11-16] MEDS: LISINOPRIL 5 MG TAB PO SCH (08:23)
[2018-11-16] MEDS ORDERED: MAGNESIUM SULFATE 1 gm IVPB 1 GM/100 ML BAG IV ONE (09:00)
[2018-11-16 13:18] LABS: Absolute Lymphocytes (CBC) 2.9 K/uL (0.7-4.9); Basophils % 0.6 % (0-1.3); Hematocrit 24.6 % (36.0-45.0); Lymphocytes % 36.6 % (15.3-44.8); MPV 8.4 fL (7.6-11.3); RBC Red Blood Cell Count 2.42 M/uL (3.86-4.86)
[2018-11-16 13:26] LABS: Albumin 2.9 g/dL (3.4-5.0); Bilirubin Total 0.6 mg/dL (0.2-1.0); Potassium 4.2 mmol/L (3.5-5.1); Protein, Total 5.9 g/dL (6.4-8.2)
--- NOTE | 2018-11-16 16:53 | PN ---
Subjective: Currently, patient lying in bed. She looks comfortable. She had no chest pain. No abd ominal pain. No fever. No chills. Continue to have low blood pressure 89/49. She wants to go home . Both daughters at the bedside. Objective: Vital Signs: Blood pressure 89/49, respiratory rate 17, pulse 78, temperature 97.7. General: Patient is alert and oriented x3. Does not look in any distress. HEENT: Atraumatic, normocephalic. PERRLA. Oral mucosa is moist. Neck: Supple. No JVD. No bruits. Chest: Clear to auscultation. Good air entry. Heart: Regular rate and rhythm. S1, S2 normal. No gallop. No murmur. Abdomen: Soft, nontender. No masses. No hepatosplenomegaly. Positive bowel sounds. Extremities: No clubbing, cyanosis, or edema. No calf tenderness. Diffuse bruising on the skin not ed. Neuro: Grossly intact. Laboratory Data: Labs today; CBC with hemoglobin down from 11.4 to 9.8, white blood cells 4.1, plate let 234. Chemistry was normal except for creatinine of 1.97, BUN of 41, magnesium 1.7. Assessment And Plan: 1.Hypotension, most likely secondary to over-medication as well as dehydration with elevated BUN. W e will continue patient on gentle hydration with normal saline at 75 cc/hour. I will stop her lisino pril for now. Patient's stool occult blood was positive, so I am worried about GI bleed. So, we denice l hold her discharge and consult GI given patient on anticoagulation as well as Plavix due to her rec ent stent. 2.Renal insufficiency, chronic. BUN continued to go up. We will continue IV hydration and we will hold lisinopril for now as well as Lasix was stopped yesterday. BNP again was elevated on admission, but it could be secondary to her renal insufficiency. 3.History of atrial fibrillation. Patient is on digoxin as well as on anticoagulation with Eliquis 2.5 mg twice a day. 4.History of coronary artery disease with recent stent. Patient is on Plavix and aspirin. Dr. Noa abrams stopped her aspirin and she is also on Eliquis. I will not be able to stop anticoagulation due to the patient's risk of occlusion of her recent stent unless we get the okay from the Cardiology. 5.Anemia. Iron profile normal, but stool occult was positive. We will need GI consult to see if sh e will need endoscopy. MCV is still elevated. Folic acid is high. Thyroid normal. Vitamin B12 nor mal. Patient does not drink. It will be worthwhile to follow up with outpatient, consider bone yamila ow biopsy to rule out myelodysplastic syndromes. 6.Acid reflux. Continue Protonix. 7.Chronic pain, on Cymbalta. 8.Cachexia. Advised to drink Ensure. Patient has poor appetite. Consider Marinol as outpatient. 9.History of alcohol as well as tobacco abuse. Advised to quit. 10.History of depression and anxiety. Patient on Cymbalta as well as Xanax p.r.n. 11.Deep venous thrombosis prophylaxis, no need as patient on Eliquis. 12.Hypomagnesemia. We will replace. 13.Plan of care discussed with both daughters. DAVON/JUSTINE Voice ID: [id number] Report ID: [id number]
[2018-11-16] MEDS: DULOXETINE 30 MG CAP PO SCH (20:11)
[2018-11-16] MEDS: MELATONIN 5 MG TABLET PO SCH (20:11)
--- NOTE | 2018-11-17 01:33 | P.PN ---
Subjective Date of Service: 11/17/18 Primary Care Provider: Dr. Diaz Chief Complaint: Low blood pressure Subjective: Improving (Patient appears improved. Medications have been adjusted due to low blood pressure.) Physical Examination - Vital Signs Temperature: 97.3 F Blood Pressure: 85/60 Pulse: 72 Respirations: 16 Pulse Ox (%): 99 - Physical Exam General: Alert, In no apparent distress, Oriented x3, Cooperative HEENT: Atraumatic Neck: Supple Respiratory: Clear to auscultation bilaterally, Normal air movement Cardiovascular: Normal pulses, Regular rate/rhythm Gastrointestinal: Normal bowel sounds, Soft and benign, Non-distended, No masses , No rebound, No guarding Musculoskeletal: No erythema, No tenderness, No warmth Integumentary: No tenderness/swelling, No erythema, No warmth, No cyanosis Neurological: Normal speech, Normal strength at 5/5 x4 extr, Normal tone, Normal affect - Studies Microbiology Data (last 24 hrs): 11/15/18 18:30 Stool Occult Blood - Final Medications List Reviewed: Yes Assessment & Plan Discharge Plan: Home Plan to discharge in: 48 Hours Physician Review Additional Text: Impression: Hypotension likely related to overmedication with history of hypertension Acute on chronic renal disease stage IV Chronic systolic CHF, ejection fraction 15% now with life vest CAD with recent stent Chronic atrial fibrillation on chronic anti coagulation therapy Anemia of chronic disease COPD Depression with anxiety GERD Chronic pain Mild malnutrition Former tobacco/alcohol use Plan: Hypotension likely related to overmedication with history of hypertension: Patient has been doing well. Multiple medications adjusted during her stay due to low blood pressure. Patient now off aspirin, Lasix, Aldactone, and lisinopril. Metoprolol has been decreased along with digoxin. Continue to adjust blood pressure medication. May need to hold metoprolol if systolic less than 110. Will consult cardiology for further recommendation on her current medications. What physical therapy ambulate. Continue IV fluids at this time. Will need to monitor closely as the patient has underlying congestive heart failure. Anticipate discharge home once blood pressure more stabilized. Anticipate discharge in the next 24-48 hr. Hospitalist Team will continue her care. Acute on chronic renal disease, stage 4: Patient appears slightly dehydrated. Patient given IV fluids. Improvement noted. Multiple medications have been discontinued including Aldactone, Lasix and lisinopril. Chronic systolic CHF, ejection fraction 15% now with life vest: Patient will continue with life vest. Will continue with 1500 cc per day fluid restriction. Lasix, Aldactone and lisinopril have been discontinued due to low blood pressure. Await further recommendation from Cardiology on her current medications due to low blood pressure. CAD with recent stent: Patient with recent stent. Aspirin has been discontinued due to anemia. Patient still on Plavix. Patient also takes Eliquis for atrial fibrillation. Will consult cardiology for recommendation on current medications to determine which can be continued or discontinued at discharge. Chronic atrial fibrillation on chronic anti coagulation therapy: Continue with Eliquis. Digoxin has been decreased. Metoprolol also decreased. Await further recommendation from Cardiology. Anemia of chronic disease: Continue to monitor hemoglobin closely. No need for transfusion at this time. Multiple medications adjusted in her stay. Patient no longer on aspirin. Await further recommendations from Cardiology on whether to continue with Plavix and Eliquis. Patient may require Hematology and GI consultation as an outpatient. Patient may need further evaluation as an outpatient for MDS. Will send peripheral smear further evaluate. COPD: Will provide COPD treatment. Maintain sats above 94%. Depression with anxiety: Continue with home medications Cymbalta 60 mg daily. Will provide Xanax as needed. GERD: Will provide medication Protonix. Chronic pain: Will continue with her Cymbalta. Mild malnutrition: Encourage oral intake. Will continue with Ensure 3 times a day. Former tobacco/alcohol use: Continue with alcohol and tobacco cessation. Time Spent Managing Pts Care (In Minutes): 55
[2018-11-17] MEDS: METOPROLOL TAR 25 MG TAB PO SCH ×2 (05:28→17:37)
[2018-11-17] MEDS: NA CHLORIDE 0.9% 1,000 ML IV SCH ×2 (05:29→19:30)
[2018-11-17 06:05] LABS: Absolute Lymphocytes (CBC) 2.8 K/uL (0.7-4.9); Basophils % 0.9 % (0-1.3); Hematocrit 25.8 % (36.0-45.0); Lymphocytes % 40.5 % (15.3-44.8); RBC Red Blood Cell Count 2.52 M/uL (3.86-4.86)
[2018-11-17 06:20] LABS: Albumin 2.8 g/dL (3.4-5.0); Bilirubin Total 0.6 mg/dL (0.2-1.0); Magnesium 1.7 mg/dL (1.8-2.4); Potassium 4.3 mmol/L (3.5-5.1); Protein, Total 5.9 g/dL (6.4-8.2)
[2018-11-17] MEDS: CLOPIDOGREL 75 MG TABLET PO SCH (08:21)
[2018-11-17] MEDS: APIXABAN 2.5 MG TABLET PO SCH ×2 (08:21→20:07)
[2018-11-17] MEDS: FOLIC ACID 1 MG TABLET PO SCH (08:21)
[2018-11-17] MEDS: DIGOXIN 0.125 MG TABLET PO SCH (08:21)
[2018-11-17] MEDS: ENSURE ENLIVE 237 ML CAN PO SCH ×3 (08:25→20:07)
[2018-11-17] MEDS ORDERED: MAGNESIUM SULFATE 1 gm IVPB 1 GM/100 ML BAG IV ONE (09:00)
[2018-11-17 09:37] LABS: Blood Morphology Comment NOT SEEN (NOT SEEN); Platelet Estimate ADEQ
[2018-11-17] MEDS: ARFORMOTEROL TARTRATE 15 MCG/2 ML VIAL.NEB NEB SCH ×2 (10:20→20:30)
--- NOTE | 2018-11-17 17:16 | P.PN ---
Date of Service: 11/17/18 Nurse called regarding patient had some questions Patient seen. Daughter at the bedside. Treatment plan explained. Patient is awaiting GI work up and treatment for uti. Patient has anemia and is on blood thinners. Needs GI eval to see if she can tolerate her blood thinners. Case discussed with Dr. Barbour he recommends continuing aldactone and lasix. Patient is a good candidate for Entresto. Sees primary cardiology out of town. Patient has UTI start cipro. Cultures show enterococcus.
[2018-11-17] MEDS: ALPRAZOLAM 0.25 MG TABLET PO PRN (17:38)
[2018-11-17] MEDS: DULOXETINE 30 MG CAP PO SCH (20:06)
[2018-11-17] MEDS: MELATONIN 5 MG TABLET PO SCH (20:07)
[2018-11-17] MEDS: DOXYCYCLINE 100 MG CAP PO SCH (20:07)
[2018-11-17] MEDS: IPRATROPIUM BROM 0.5MG/2.5ML NEB PRN (20:30)
[2018-11-17] MEDS ORDERED: CIPROFLOXACIN 400mg IV 400 MG/200 ML BAG IV SCH (21:00)
--- NOTE | 2018-11-18 01:31 | CON ---
Date of Consultation: 11/17/2018 Reason For Consultation: CAD, CHF, and hypotension. History Of Present Illness: Ms. Mackenzie is 78, was seen here in the past. Recently within the last 2 -3 weeks, underwent a stent at [facility] of one of her blood vessel. She was found to have a severely depressed ejection fraction and is wearing a LifeVest now. She cannot remember who her ca rdiologist was. Apparently, they were going to wait for about 90 days on medication, recheck her eje ction fraction, and plan for possible defibrillator. She has a history of atrial fibrillation, breas t cancer that has been cured, anxiety, COPD, neuropathy. She came in hypotensive that has been corre cted already. She was found to have a hemoglobin of 9.2, magnesium 1.7. Her EKG showed left anterio r hemiblock with an old anterior [place]. Echocardiogram in October 2018 showed an ejection fraction of 15 %. Her creatinine was 0.89. Allergies: SHE IS ALLERGIC TO PENICILLIN. Review of Systems: Negative. Social History: Negative. Family History: Negative. Medications: At home include digoxin, Eliquis, inhalers, Plavix, metoprolol 12.5 mg b.i.d., Lasix, Z estril, and Aldactone. Physical Examination: General: She was in no acute distress. She was normotensive. She was in atrial fibrillation, rate controlled at 80. HEENT: Negative. Neck: Supple with no bruit, lymphadenopathy, JVD, or thyromegaly. Chest: Clear to auscultation and percussion. Cardiac: Revealed atrial fibrillation, but no murmurs, gallops, or rubs. Abdomen: Benign. Extremities: Revealed no clubbing, cyanosis, or edema. Neurologic: She was nonfocal. Pulses were present bilaterally symmetrically. Skin: Dry and intact. Diagnostic Data: As stated earlier. Impression And Plan: 1.Hypotension secondary to polypharmacy and congestive heart failure. 2.Severe acute systolic congestive heart failure with an ejection fraction of 15%. The patient is w earing a LifeVest. She will follow up with her collar packer in [place], and I will let them decide w hen is the right timing for repeat echocardiogram and possibly a defibrillator. 3.Atrial fibrillation, on Eliquis and metoprolol. 4.Recent stent with history of coronary artery disease. 5.Breast cancer that is being cured. 6.Anxiety. 7.Chronic obstructive pulmonary disease. 8.Neuropathy. 9.Anemia. 10.Abnormal EKG. 11.Hypomagnesemia. Regarding Ms. Mackenzie, I agree with the digoxin, Eliquis, inhalers, Plavix, and metoprolol. For now, I would probably hold her Lasix, and continue the Zestril and Aldactone. I am wondering how come she is not on Entresto, she is a good candidate for it, she has a low creatinine. I will leave that up to her collar packer up in [place] unless they want to come back and follow up with me. The case was discussed with Dr. Vivar. No further cardiac workup at this point. ANA LUISA/JUSTINE Voice ID: [id number] Report ID: [id number]
[2018-11-18] MEDS: ALPRAZOLAM 0.25 MG TABLET PO PRN ×2 (01:50→22:56)
[2018-11-18 06:35] LABS: Magnesium 1.8 mg/dL (1.8-2.4); Potassium 4.6 mmol/L (3.5-5.1)
[2018-11-18] MEDS: METOPROLOL TAR 25 MG TAB PO SCH ×2 (06:36→18:36)
[2018-11-18] MEDS: IPRATROPIUM BROM 0.5MG/2.5ML NEB PRN (06:50)
[2018-11-18] MEDS: ARFORMOTEROL TARTRATE 15 MCG/2 ML VIAL.NEB NEB SCH ×2 (06:50→20:00)
[2018-11-18] MEDS: NA CHLORIDE 0.9% 1,000 ML IV SCH (08:40)
[2018-11-18] MEDS ORDERED: MAGNESIUM SULFATE 1 gm IVPB 1 GM/100 ML BAG IV ONE (09:00)
[2018-11-18] MEDS: FOLIC ACID 1 MG TABLET PO SCH (09:50)
[2018-11-18] MEDS: CLOPIDOGREL 75 MG TABLET PO SCH (09:50)
[2018-11-18] MEDS: APIXABAN 2.5 MG TABLET PO SCH (09:50)
[2018-11-18] MEDS: DIGOXIN 0.125 MG TABLET PO SCH (09:50)
[2018-11-18] MEDS: ENSURE ENLIVE 237 ML CAN PO SCH ×3 (09:51→20:46)
[2018-11-18] MEDS: DOXYCYCLINE 100 MG CAP PO SCH ×2 (09:51→20:37)
--- NOTE | 2018-11-18 15:47 | P.PN ---
Subjective Date of Service: 11/18/18 Primary Care Provider: Dr. Diaz Chief Complaint: Low blood pressure Subjective: No new changes, Tolerating diet, Improving, Working w/ PT, Doing well Review of Systems 10-point ROS is otherwise unremarkable Physical Examination - Vital Signs Temperature: 97.5 F Blood Pressure: 98/58 Pulse: 90 Respirations: 18 Pulse Ox (%): 94 - Physical Exam General: Alert, In no apparent distress HEENT: Atraumatic, PERRLA, EOMI Neck: Supple, JVD not distended Respiratory: Clear to auscultation bilaterally, Normal air movement Cardiovascular: Regular rate/rhythm, Normal S1 S2 Gastrointestinal: Normal bowel sounds, No tenderness Musculoskeletal: No tenderness Integumentary: No rashes Neurological: Normal speech, Normal tone, Normal affect Lymphatics: No axilla or inguinal lymphadenopathy - Studies Medications List Reviewed: Yes Assessment And Plan Discharge Plan: Home Plan to discharge in: Greater than 2 days - Code Status/Comfort Care Code Status Assessed: Yes Physician Review Additional Text: Impression/Plan: Lower GI bleed -HGb has been steadily Declining -No Gross bleeding per rectum since past 24hrs -NO fluids due to CHF. Protonix PO -GI consulted. Appreciate Reccs -RBC scan scheduled Hypotension likely related to overmedication: -Stop Lisinopril -Dose Adjusted for Metoprolol, Lasix and Aldactone. Continue Digoxin -BP still on Lower side. Held lasix and Aldactone Today -Cardiology Consulted. Appreciated Reccs Acute on chronic renal disease, stage 4: -Patient appears slightly dehydrated. -Patient given IV fluids. Improvement noted. Chronic systolic CHF, ejection fraction 15% now with life vest: -Patient will continue with Lasix. -Will continue with 1500 cc per day fluid restriction. -Adjusted Dose for Lasix and Aldactone. However on hold today due to Low BP -Stop Lisinopril CAD with recent stent: -Patient with recent stent. -Hold plavix and ASA Chronic atrial fibrillation on chronic anti coagulation therapy: -Hold eliquis due to Lower GI bleeding -On Digoxin and BB COPD: -Will provide COPD treatment. Maintain sats above 94%. Depression with anxiety: -Continue with home medications Cymbalta 60 mg daily. Will provide Xanax as needed. GERD: -Will provide medication Protonix. Chronic pain: -Will continue with her Cymbalta. Mild malnutrition: -Encourage oral intake. Will continue with Ensure 3 times a day. Former tobacco/alcohol use: -Continue with alcohol and tobacco cessation. Critical Care: No
[2018-11-18] MEDS ORDERED: SODIUM CHLORIDE 0.9% 10ML INJ IV PRN (15:52)
--- NOTE | 2018-11-18 16:58 | RAD REPORT ---
EXAM DESCRIPTION: NM - GI Blood Loss Imaging - 11/18/2018 4:37 pm CLINICAL HISTORY: Gastrointestinal bleeding COMPARISON: None. TECHNIQUE: The patient was administered 26.5 millicuries technetium labeled red blood cells. Dynamic images of the abdomen and pelvis were obtained for 60 minutes FINDINGS: No abnormal radiotracer activity is seen within the bowel. No abnormality displayed IMPRESSION: No evidence of active gastrointestinal bleeding during the examination
--- NOTE | 2018-11-18 17:42 | PN ---
Date of Progress Note: 11/18/2018 Subjective: Ms. Mackenzie was seen today on 11/18/2018 for followup on congestive heart failure, status post LifeVest; coronary artery disease, status post recent stents. Echocardiogram recently showed a n ejection fraction about 15%. No arrhythmias have been noted. She was slightly hypotensive when sh e came in. Some of her medication has been held. She is feeling great today and wants to go home. We will continue her LifeVest. She needs an echocardiogram in about 3 months. If her ejection fract ion remains low, she will need a defibrillator with possibly a biventricular pacemaker. She understa nds all that. She will go home on her present medical regimen. I will be happy to see her in the of count includes the [facility] if she choose us to or she can go back and see Dr. Lang in [place] in the near future. The poss ibility of using Entresto is very reasonable considering her ejection fraction and her normal renal f unction. ANA LUISA/KARENAL Voice ID: [id number] Report ID: [id number]
[2018-11-18] MEDS: MELATONIN 5 MG TABLET PO SCH (20:37)
[2018-11-18] MEDS: DULOXETINE 30 MG CAP PO SCH (20:37)
[2018-11-18] MEDS: PANTOPRAZOLE 40 MG INJ IVP SCH (20:38)
[2018-11-18 23:49] VITALS: O2SAT 94
[2018-11-19] MEDS: METOPROLOL TAR 25 MG TAB PO SCH (07:11)
[2018-11-19 07:18] LABS: Absolute Lymphocytes (CBC) 2.9 K/uL (0.7-4.9); Basophils % 1.1 % (0-1.3); Hematocrit 26.1 % (36.0-45.0); Lymphocytes % 37.1 % (15.3-44.8); MPV 7.9 fL (7.6-11.3); RBC Red Blood Cell Count 2.56 M/uL (3.86-4.86)
[2018-11-19 07:42] LABS: Magnesium 1.7 mg/dL (1.8-2.4); Potassium 4.5 mmol/L (3.5-5.1)
[2018-11-19] MEDS ORDERED: SPIRONOLACTONE 25 MG TABLET PO SCH (09:00)
[2018-11-19] MEDS ORDERED: FUROSEMIDE 20 MG TABLET PO SCH (09:00)
[2018-11-19] MEDS: PANTOPRAZOLE 40 MG INJ IVP SCH (09:38)
[2018-11-19] MEDS: FOLIC ACID 1 MG TABLET PO SCH (09:38)
[2018-11-19] MEDS: DOXYCYCLINE 100 MG CAP PO SCH (09:38)
[2018-11-19] MEDS: DIGOXIN 0.125 MG TABLET PO SCH (09:38)
[2018-11-19] MEDS: ENSURE ENLIVE 237 ML CAN PO SCH (09:39)
[2018-11-19 12:35] VITALS: BP 96/54; TEMP 97.6
[2018-11-19] MEDS: ARFORMOTEROL TARTRATE 15 MCG/2 ML VIAL.NEB NEB SCH (14:14)
--- NOTE | 2018-11-19 16:11 | P.DS ---
Admission Date: 11/15/18 Discharge Date: 11/19/18 Primary Care Provider: Dr. Diaz Disposition: DC HOME/HOME HEALTH CARE Discharge Condition: GOOD Reason for Admission: Low blood pressure Consultations: Cardiology-Dr. Barbour Procedures: None - Problems (1) Hypotension Status: Acute (2) Chronic systolic heart failure Status: Chronic (3) Enterococcus UTI Status: Acute (4) Chronic atrial fibrillation Status: Chronic Brief History of Present Illness: 78-year-old woman with a history chronic systolic heart failure with severe LV dysfunction, EF of 15%, now wearing life vest, history of chronic atrial fib on chronic anticoagulation was brought to the emergency department due to low blood pressure. Her blood pressure was noted to be low in the ED. This was considered secondary to dehydration as patient had been on Lasix and Aldactone. She was given a bolus of normal saline. Her initial troponin was negative. Patient was admitted for further management of hypotension. Hospital Course: She was admitted with telemetry. Lisinopril Aldactone and Lasix were held and patient slowly resuscitated with IV fluid onto her blood pressure improved. She was seen by cardiology, her Aldactone and Lasix were subsequently resumed. Aldactone was resumed at a lower dose of 12.5 mg daily. Metoprolol was also cut down to 12.5 mg twice a day. Digoxin was reduced from 0.125 mg to 0.0625 mg daily. Of note patient renal panel suggested acute renal failure necessitating the reduction in the digoxin. Renal panel improved with hydration. Her blood pressure remained stable with these medications. Her urine culture grew enterococcus faecalis for which she was prescribed oral doxycycline. Noted a drop in her hemoglobin from 11 to 9 and then stabilize at 9. Her stool was Hemoccult positive. She did not bleed actively. Bleeding scan was performed which was negative for active bleeding. She was evaluated by Gastenterology- Dr. Mohamud who recommended the bleeding scan. She is high risk for cardiac thrombosis and CVA. At the moment, benefits of anticoagulation outweighs the risk of bleeding. Plavix and Eliquis has been resumed, Aspirin has been discontinued per Cardiology recommendation. Hemoglobin has been stable with the Eliquis and the Plavix. She is discharged to follow with Dr. Mohamud regarding further evaluation of the GI bleed as an outpatient. Vital Signs/Physical Exam: Temp Pulse Resp BP Pulse Ox 97.6 F 96 H 20 96/54 L 92 11/19/18 12:00 11/19/18 12:00 11/19/18 12:00 11/19/18 12:00 11/19/18 12:00 Laboratory Data at Discharge: WBC 7.8 K/uL (4.3-10.9) 11/19/18 06:30 Hgb 9.1 g/dL (12.0-15.0) L 11/19/18 06:30 Hct 26.1 % (36.0-45.0) L 11/19/18 06:30 Plt Count 208 K/uL (152-406) 11/19/18 06:30 PT 16.5 SECONDS (9.5-12.5) H 11/14/18 17:14 INR 1.42 11/14/18 17:14 Sodium 140 mmol/L (136-145) 11/19/18 06:30 Potassium 4.5 mmol/L (3.5-5.1) 11/19/18 06:30 BUN 5 mg/dL (7-18) L 11/19/18 06:30 Creatinine 0.82 mg/dL (0.55-1.3) 11/19/18 06:30 Glucose 90 mg/dL (74-106) 11/19/18 06:30 Magnesium 1.7 mg/dL (1.8-2.4) L 11/19/18 06:30 Total Bilirubin 0.6 mg/dL (0.2-1.0) 11/17/18 05:28 AST 32 U/L (15-37) 11/17/18 05:28 ALT 30 U/L (12-78) 11/17/18 05:28 Alkaline Phosphatase 50 U/L (45-117) 11/17/18 05:28 Troponin I < 0.02 ng/mL (0.0-0.045) 11/15/18 05:38 Triglycerides 68 mg/dL (<150) 11/15/18 05:38 Cholesterol 124 mg/dL (<200) 11/15/18 05:38 HDL Cholesterol 47 mg/dL (40-60) 11/15/18 05:38 Cholesterol/HDL Ratio 2.64 11/15/18 05:38 Lipase 160 U/L (73-393) 11/14/18 17:14 Home Medications: Apixaban [Eliquis *] 2.5 mg PO BID 11/15/18 Clopidogrel Bisulfate [Plavix*] 75 mg PO DAILY 11/15/18 Duloxetine HCl [Cymbalta] 60 mg PO DAILY 11/15/18 Folic Acid 1 mg PO DAILY 11/15/18 Furosemide [Lasix*] 20 mg PO DAILY 11/15/18 Melatonin 10 mg PO BEDTIME 11/15/18 Spironolactone [Aldactone*] 12.5 mg PO DAILY 11/15/18 ALPRAZolam [Xanax*] 0.25 mg PO TID PRN 30 Days #60 tab 11/19/18 Clopidogrel Bisulfate [Plavix*] 75 mg PO DAILY 30 Days #60 tablet 11/19/18 Digoxin [Lanoxin*] 0.0625 mg PO DAILY 30 Days #15 tab 11/19/18 Doxycycline Hyclate 100 mg PO BID 7 Days #14 capsule 11/19/18 Ensure Enlive 237 ml PO TID 15 Days #45 can 11/19/18 Melatonin 10 mg PO BEDTIME tablet 11/19/18 Metoprolol Tartrate [Lopressor*] 12.5 mg PO BID 6AM 6PM 30 Days #30 tab Mirtazapine [Remeron] 15 mg PO BEDTIME 30 Days #30 tablet 11/19/18 Pantoprazole Sodium [Protonix] 40 mg PO BID 30 Days #60 tablet. 11/19/18 New Medications: ALPRAZolam [Xanax*] 0.25 mg PO TID PRN 30 Days #60 tab PRN Reason: Anxiety Clopidogrel Bisulfate [Plavix*] 75 mg PO DAILY 30 Days #60 tablet Digoxin [Lanoxin*] 0.0625 mg PO DAILY 30 Days #15 tab Doxycycline Hyclate 100 mg PO BID 7 Days #14 capsule Metoprolol Tartrate [Lopressor*] 12.5 mg PO BID 6AM 6PM 30 Days #30 tab Mirtazapine [Remeron] 15 mg PO BEDTIME 30 Days #30 tablet Pantoprazole Sodium [Protonix] 40 mg PO BID 30 Days #60 tablet. Patient Discharge Instructions: Follow up with Dr. Mohamud within 2 weeks. Follow up with your director index as scheduled. Fall precautions. Check your stool for bleeding and contact your PCP or report to the ED when you see blood in your stool. Diet: AHA Activity: Ad bradly Followup: Robi Mohamud MD [ASSOCIATE-ACTIVE - CAN ADMIT] -
== END 2018-11-19 15:36 | disposition home health service (06) | DRG 315 ==
LOC: ER 16:26 → ERHOLD 19:59 → 4TH 20:26 → OBSVTOIN 11-15 18:44
PROVIDERS: ADMIT Family Medicine; ATTEND Family Medicine
DX: I95.9 Hypotension, unspecified (principal); N17.9 Acute kidney failure, unspecified; N39.0 Urinary tract infection, site not specified; I13.0 Hypertensive heart and chronic kidney disease with heart failure and stage 1 through stage 4 chronic kidney disease, or unspecified chronic kidney disease; N18.4 Chronic kidney disease, stage 4 (severe); I50.22 Chronic systolic (congestive) heart failure; E46 Unspecified protein-calorie malnutrition; Z68.1 Body mass index [BMI] 19.9 or less, adult; R64 Cachexia; B95.2 Enterococcus as the cause of diseases classified elsewhere; I48.2 Chronic atrial fibrillation; I25.10 Atherosclerotic heart disease of native coronary artery without angina pectoris; Z95.5 Presence of coronary angioplasty implant and graft; D64.9 Anemia, unspecified; J44.9 Chronic obstructive pulmonary disease, unspecified; F41.8 Other specified anxiety disorders; K21.0 Gastro-esophageal reflux disease with esophagitis; G89.29 Other chronic pain; Z88.0 Allergy status to penicillin; E83.42 Hypomagnesemia; Z87.891 Personal history of nicotine dependence; Z85.3 Personal history of malignant neoplasm of breast
CPT/HCPCS: 36415; 71045; 71046; 78278; 80048; 80053; 80061; 80076; 80162; 81003; 81015; 82274; 82550; 82553; 82607; 82728; 82746; 83540; 83690; 83735; 83880; 84443; 84466; 84484; 85014; 85018; 85025; 85610; 87077; 87086; 87088; 87186; 93005; 96361; 96374; 96375; 97110; 97116; 97162; 97530; 99285; A9560; C9113; G0378; J2920; J3475; J7030; J7605

== ENCOUNTER 2019-02-23 14:24 | Inpatient (IN) | payer OTHER ==
[2019-02-23] MEDS ORDERED: NA CHLORIDE 0.9% 1,000 ML ONE (14:56)
[2019-02-23] MEDS ORDERED: MORPHINE 2 MG/ML SYR ONE (14:56)
[2019-02-23] MEDS ORDERED: ONDANSETRON 4 MG/2 ML VIAL ONE (14:56)
[2019-02-23 15:00] LABS: Absolute Lymphocytes (CBC) 1.6 K/uL (0.7-4.9); Basophils % 1.2 % (0-1.3); Hematocrit 31.6 % (36.0-45.0); Lymphocytes % 20.8 % (15.3-44.8); MPV 6.8 fL (7.6-11.3); RBC Red Blood Cell Count 3.33 M/uL (3.86-4.86)
[2019-02-23 15:06] LABS: Protime INR 1.08
[2019-02-23 15:21] LABS: Albumin 3.2 g/dL (3.4-5.0); Bilirubin Direct 0.2 mg/dL (0-0.2); Bilirubin Total 0.5 mg/dL (0.2-1.0); Magnesium 1.8 mg/dL (1.8-2.4); Potassium 3.1 mmol/L (3.5-5.1); Protein, Total 7.1 g/dL (6.4-8.2); Troponin (Emerg Dept Use Only) 0.02 ng/mL (0.0-0.045)
--- NOTE | 2019-02-23 15:38 | RAD REPORT ---
EXAM DESCRIPTION: CT - Head C Spine Mpr Wo Con - 02/23/2019 3:16 pm CLINICAL HISTORY: Head and neck injury status post fall. Head and neck pain COMPARISON: 2014 TECHNIQUE: Computed axial tomography of the head and cervical spine was obtained. Sagittal and coronal reconstruction was performed. All CT scans are performed using dose optimization technique as appropriate and may include automated exposure control or mA/KV adjustment according to patient size. FINDINGS: An intracranial bleed is not seen. Mild low-density areas within periventricular, deep sub cortical white matter likely ischemic changes secondary to small vessel disease Cerebral atrophy is noted The ventricles are normal in caliber. An extra-axial fluid collection is not noted.Fluid within the v isualized sinuses and mastoids is not seen A cervical fracture is not visualized. No dislocation is noted. Mild posterior subluxation C3 on C4-C 4 on C5 without significant change. Spondylosis involves the cervical spine resulting in spinal steno sis IMPRESSION: No acute intracranial abnormality is seen. A cervical fracture is not visualized. If the patient continues to have symptoms to suggest intracra nial /spinal cord pathology then MRI would be recommended
--- NOTE | 2019-02-23 15:39 | RAD REPORT ---
EXAM DESCRIPTION: RAD - Pelvis - 02/23/2019 3:14 pm CLINICAL HISTORY: Pelvic pain status post injury FINDINGS: An impacted mildly to moderately displaced subcapital/transcervical femoral fracture No dislocation
--- NOTE | 2019-02-23 15:40 | RAD REPORT ---
EXAM DESCRIPTION: RAD - Hip Left 2 View - 02/23/2019 3:16 pm CLINICAL HISTORY: Left hip pain status post injury FINDINGS: An impacted mildly to moderately displaced subcapital/transcervical femoral fracture No dislocation
--- NOTE | 2019-02-23 15:42 | RAD REPORT ---
EXAM DESCRIPTION: RAD - Femur Left - 02/23/2019 3:14 pm CLINICAL HISTORY: Left leg pain FINDINGS: An impacted mildly to moderately displaced subcapital/transcervical femoral fracture No dislocation
--- NOTE | 2019-02-23 15:45 | RAD REPORT ---
EXAM DESCRIPTION: [place] Single View02/23/2019 3:15 pm CLINICAL HISTORY: cough COMPARISON: November 2018 FINDINGS: The lungs appear clear of acute infiltrate. The heart is normal size Upper lobe vessels are prominent indicative of pulmonary venous hypertension
--- NOTE | 2019-02-23 15:55 | ER ---
Nurse's Notes [facility] Name: Dominique Mackenzie Age: 78 yrs Sex: Female : 1940 Arrival Date: 02/23/2019 Time: 14:25 Bed 24 Private MD: Diagnosis: Fall due to bumping against object;Displaced fracture of base of neck of left femur Presentation: 02/23 14:28 Presenting complaint: EMS states: patient was sitting in the patio when she tried to mg2 stand when she fell on her right side and the chair fell on her left hip. she also hit her head on the fence but denies LOC. Transition of care: patient was not received from another setting of care. Onset of symptoms was February 23, 2019 at 13:00. Risk Assessment: Do you want to hurt yourself or someone else? Patient reports no desire to harm self or others. Initial Sepsis Screen: Does the patient meet any 2 criteria? No. Patient's initial sepsis screen is negative. Does the patient have a suspected source of infection? No. Patient's initial sepsis screen is negative. Care prior to arrival: None. 14:28 Method Of Arrival: EMS: [place] [id number] 14:28 Acuity: BA 3 mg2 15:17 Mechanism of Injury: Fall out of chair. Trauma event details: Injury occurred in the [address], Injury occurred: at home. Injury occurred at: 13:00. Trauma Activation: Physician: ED Physician; Name: dr velasco; Notified At: ; Arrived At: Physician: General Surgeon; Name: ; Notified At: ; Arrived At: Physician: Radiology; Name: ; Notified At: ; Arrived At: Physician: Respiratory; Name: ; Notified At: ; Arrived At: Physician: Lab; Name: ; Notified At: ; Arrived At: Historical: - Allergies: 14:41 PENICILLINS; mg2 - Home Meds: 15:20 aspirin 81 mg Oral TbEC 1 tab once daily [Active]; clopidogrel 75 mg Oral tab 1 tab mg2 once daily [Active]; Cymbalta 60 mg Oral cpDR 1 cap nightly [Active]; digoxin 125 mcg Oral tab 0.5 tab once daily [Active]; Eliquis 2.5 mg Oral tab 1 tab 2 times per day [Active]; folic acid 1 mg Oral tab 1 tab once daily [Active]; furosemide 20 mg Oral tab 1 tab once daily [Active]; lisinopril 2.5 mg Oral tab 1 tab once daily [Active]; melatonin 10 mg Oral tab nightly [Active]; metoprolol tartrate 25 mg Oral tab 1 tab 2 times per day [Active]; spironolactone 25 mg Oral tab 0.5 tab once daily [Active]; unknown antidepressant [Active]; - PMHx: 14:41 Anxiety; BREAST CA; CAD; COPD; Depression; neuropathy; mg2 - PSHx: 14:41 Appendectomy; right mastectomy; mg2 - Immunization history:: Flu vaccine status is unknown. - Social history:: Smoking status: Patient uses tobacco products, smokes one-half pack cigarettes per day. - Immunization history: Last tetanus immunization: unknown. - Ebola Screening: : No symptoms or risks identified at this time. Screenin:15 Abuse screen: Denies threats or abuse. Denies injuries from another. Nutritional mg2 screening: No deficits noted. Tuberculosis screening: No symptoms or risk factors identified. 15:18 Fall Risk Fall in past 12 months (25 points). IV access (20 points). mg2 Primary Survey: 15:14 NO uncontrolled hemorrhage observed. Breathing/Chest: Respiratory pattern: regular, mg2 Respiratory effort: spontaneous, unlabored. Circulation: Skin color: pink. Disability Alert. Exposure/Environment: All clothing and personal items were removed. Forensic evidence collection is not deemed to be indicated at this time. Items placed in patient belonging bag. There is no evidence of uncontrolled external bleeding. No obvious injuries are noted at this time. A warming method has been applied: A warm blanket has been provided to the patient. 16:06 Reassessment Airway Airway Patent Breathing/Chest Respiratory pattern Regular mg2 Respiratory effort Spontaneous Unlabored Circulation Color [place] Disability Alert. Secondary Survey: 15:15 HEENT: No deficits noted. Gastrointestinal: No deficits noted. : No deficits noted. mg2 Musculoskeletal: Circulation, motion, and sensation intact. Capillary refill < 3 seconds. Assessment: 14:34 Reassessment: trauma alert called. mg2 14:40 General: Appears in no apparent distress. comfortable, Behavior is calm, cooperative. mg2 14:40 Pain: Complains of pain in both hip Pain does not radiate. Pain currently is 5 out of mg2 10 on a pain scale. Quality of pain is described as aching, Pain began suddenly, Is intermittent. Neuro: Level of Consciousness is awake, alert, obeys commands, Oriented to person, place, time, situation. EENT: No signs and/or symptoms were reported regarding the EENT system. Cardiovascular: Capillary refill < 3 seconds Patient's skin is warm and dry. Respiratory: Airway is patent Respiratory effort is even, unlabored, Respiratory pattern is regular, symmetrical. GI: : No signs and/or symptoms were reported regarding the genitourinary system. Derm: Skin is intact, is healthy with good turgor, Skin is pink, warm \T\ dry. normal. Musculoskeletal: Circulation, motion, and sensation intact. Capillary refill < 3 seconds, Reports pain in both hip. Injury Description: Bruise sustained to left hip is purple. 16:09 Reassessment: Magraret Colvin-daughter [id number]. mg2 17:00 Reassessment: Patient appears in no apparent distress at this time. Patient and/or mg2 family updated on plan of care and expected duration. Pain level reassessed. Patient is alert, oriented x 3, equal unlabored respirations, skin warm/dry/pink. Vital Signs: 14:35 Pulse 113; Resp 18; Temp 98.2; Pulse Ox 98% on R/A; Weight 39.46 kg; Height 5 ft. 2 in. mg2 (157.48 cm); Pain 5/10; 15:25 BP 95 / 52; Pulse 108; Resp 19; Temp 97.7(O); Pulse Ox 100% ; lt1 15:51 BP 120 / 84; Pulse 99; Resp 18; Pulse Ox 94% on R/A; mg2 16:50 BP 110 / 78; Pulse 80; Resp 18; Pulse Ox 98% on 2 lpm NC; mg2 17:55 BP 105 / 75; Pulse 81; Resp 18; Temp 98; Pulse Ox 98% on 2 lpm NC; mg2 14:35 Body Mass Index 15.91 (39.46 kg, 157.48 cm) mg2 [place] Coma Score: 14:40 Eye Response: spontaneous(4). Verbal Response: oriented(5). Motor Response: obeys mg2 commands(6). Total: 15. Trauma Score (Adult): 14:40 Eye Response: spontaneous(1); Verbal Response: oriented(1); Motor Response: obeys mg2 commands(2); Systolic BP: > 89 mm Hg(4); Respiratory Rate: 10 to 29 per min(4); Taj Score: 15; Trauma Score: 12 17:58 Eye Response: spontaneous(1); Verbal Response: oriented(1); Motor Response: obeys mg2 commands(2); Systolic BP: > 89 mm Hg(4); Respiratory Rate: 10 to 29 per min(4); Taj Score: 15; Trauma Score: 12 ED Course: 14:25 Patient arrived in ED. cesar 14:26 Dennis Velasco MD is Attending Physician. cesar 14:34 Ran Avila, ACOSTA is Primary Nurse. mg2 14:40 Triage completed. mg2 14:40 Inserted saline lock: 20 gauge in right antecubital area, using aseptic technique. mg2 Blood collected. 14:49 EKG done, by bacteriology technician. reviewed by Dennis Velasco MD. at1 15:15 Patient has correct armband on for positive identification. Patient maintains SpO2 mg2 saturation greater than 95% on room air. Initial lab(s) drawn, by hi, sent to lab. 15:16 No provider procedures requiring assistance completed. mg2 15:18 Thermoregulation: warm blanket given to patient. mg2 15:20 Arm band placed on. mg2 15:41 Araceli Ha MD is Hospitalizing Provider. cesar 17:56 Patel cath inserted, using sterile technique, 16 Fr., by personal computer network engineer, balloon inflated, mg2 urine specimen collected. returned clear yellow urine. Patient tolerated well. 200 ml. Patient admitted, IV remains in place. 18:00 Primary Nurse role handed off by Ran Avila, ACOSTA ss Administered Medications: 15:30 Drug: Zofran 4 mg Route: IVP; Site: right antecubital; mg2 16:03 Follow up: Response: No adverse reaction; Marked relief of symptoms mg2 15:31 Drug: NS 0.9% 500 ml Route: IV; Rate: bolus; Site: right antecubital; mg2 16:04 Follow up: Response: No adverse reaction; IV Status: Completed infusion; IV Intake: mg2 500ml 15:31 Drug: morphine 2 mg Route: IVP; Site: right antecubital; mg2 16:03 Follow up: Response: No adverse reaction; Marked relief of symptoms mg2 16:04 Drug: NS 0.9% 1000 ml Route: IV; Rate: 125 ml/hr; Site: right antecubital; mg2 17:55 Follow up: Response: No adverse reaction; IV Status: Order to discontinue infusion; IV mg2 Intake: 300ml 18:01 Not Given (to be given upstairs): Xopenex 2.5 mg Inhalation once ss 18:01 Not Given (to be given upstairs): AtroVENT Aerosol 0.5 mg Inhalation once ss 18:01 Not Given (to be given on second floor): Potassium Effervescent Tablet 25 mEq PO once; ss dissolve in 4 ounces of water or juice Intake: 14:40 PO: 0ml; Total: 0ml. mg2 16:04 IV: 500ml; Total: 500ml. mg2 17:55 IV: 300ml; Total: 800ml. mg2 Outcome: 15:55 Decision to Hospitalize by Provider. cesar 17:57 Admitted to Med/surg accompanied by tech, via stretcher, room 232, with oxygen, with mg2 chart, Report called to ACOSTA [place] 17:57 Condition: stable 17:57 Instructed on the need for admit, Demonstrated understanding of instructions. 17:58 Patient's length of stay in the Emergency Department was greater than 2 hours. mg2 17:59 Patient left the ED. mg2 18:03 Patient left the ED. ss Signatures: Dennis Velasco MD MD cha Smirch, Shelby, RN RN Paula Taveras, handicapped teacher EKG Tat1 Ran Avila RN RN mg2 Sonali Muñoz lt1 Corrections: (The following items were deleted from the chart) 17:56 17:55 BP 110 / 78; Pulse 80bpm; Resp 18bpm; Pulse Ox 100% RA; mg2 mg2 17:56 17:55 BP 110 / 78; Pulse 80bpm; Resp 18bpm; Pulse Ox 98% 2 lpm Nasal Cannula; mg2 mg2
--- NOTE | 2019-02-23 15:56 | EDPHYS ---
Physician Documentation [facility] Name: Dominique Mackenzie Age: 78 yrs Sex: Female : 1940 Arrival Date: 02/23/2019 Time: 14:25 Bed 24 Private MD: ED Physician Dennis Velasco HPI: 02/23 14:26 This 78 yrs old Female presents to ER via Unassigned with complaints of left cesar hip pain. 14:26 The patient or guardian reports decreased range of motion, pain. that occurred at home, cesar sustained from a fall, There is no obvious deformity, The patient is not able to ambulate. Patient is not able to bear weight. There is no radiation of the patient's discomfort. The complaints affect the left femoral area and left hip. Historical: - Allergies: 14:41 PENICILLINS; mg2 - Home Meds: 15:20 aspirin 81 mg Oral TbEC 1 tab once daily [Active]; clopidogrel 75 mg Oral tab 1 tab mg2 once daily [Active]; Cymbalta 60 mg Oral cpDR 1 cap nightly [Active]; digoxin 125 mcg Oral tab 0.5 tab once daily [Active]; Eliquis 2.5 mg Oral tab 1 tab 2 times per day [Active]; folic acid 1 mg Oral tab 1 tab once daily [Active]; furosemide 20 mg Oral tab 1 tab once daily [Active]; lisinopril 2.5 mg Oral tab 1 tab once daily [Active]; melatonin 10 mg Oral tab nightly [Active]; metoprolol tartrate 25 mg Oral tab 1 tab 2 times per day [Active]; spironolactone 25 mg Oral tab 0.5 tab once daily [Active]; unknown antidepressant [Active]; - PMHx: 14:41 Anxiety; BREAST CA; CAD; COPD; Depression; neuropathy; mg2 - PSHx: 14:41 Appendectomy; right mastectomy; mg2 - Immunization history:: Flu vaccine status is unknown. - Social history:: Smoking status: Patient uses tobacco products, smokes one-half pack cigarettes per day. - Immunization history: Last tetanus immunization: unknown. - Ebola Screening: : No symptoms or risks identified at this time. ROS: 15:38 Constitutional: Negative for fever, chills, and weight loss, Eyes: Negative for injury, cesar pain, redness, and discharge, ENT: Negative for injury, pain, and discharge, Neck: Negative for injury, pain, and swelling, Cardiovascular: Negative for chest pain, palpitations, and edema, Respiratory: Negative for shortness of breath, cough, wheezing, and pleuritic chest pain, Abdomen/GI: Negative for abdominal pain, nausea, vomiting, diarrhea, and constipation, Back: Negative for injury and pain, : Negative for injury, bleeding, discharge, and swelling, Skin: Negative for injury, rash, and discoloration, Neuro: Negative for headache, weakness, numbness, tingling, and seizure, Psych: Negative for depression, anxiety, suicide ideation, homicidal ideation, and hallucinations, Allergy/Immunology: Negative for hives, rash, and allergies, Endocrine: Negative for neck swelling, polydipsia, polyuria, polyphagia, and marked weight changes, Hematologic/Lymphatic: Negative for swollen nodes, abnormal bleeding, and unusual bruising. 15:38 MS/extremity: Positive for decreased range of motion, pain, tenderness, of the left hip, left gluteal fold, left inner thigh and left upper thigh. Exam: 15:38 Constitutional: This is a well developed, well nourished patient who is awake, alert, cesar and in no acute distress. Head/Face: Normocephalic, atraumatic. Eyes: Pupils equal round and reactive to light, extra-ocular motions intact. Lids and lashes normal. Conjunctiva and sclera are non-icteric and not injected. Cornea within normal limits. Periorbital areas with no swelling, redness, or edema. ENT: Nares patent. No nasal discharge, no septal abnormalities noted. Tympanic membranes are normal and external auditory canals are clear. Oropharynx with no redness, swelling, or masses, exudates, or evidence of obstruction, uvula midline. Mucous membranes moist. Neck: Trachea midline, no thyromegaly or masses palpated, and no cervical lymphadenopathy. Supple, full range of motion without nuchal rigidity, or vertebral point tenderness. No Meningismus. Chest/axilla: Normal chest wall appearance and motion. Nontender with no deformity. No lesions are appreciated. Cardiovascular: Regular rate and rhythm with a normal S1 and S2. No gallops, murmurs, or rubs. Normal PMI, no JVD. No pulse deficits. Respiratory: Lungs have equal breath sounds bilaterally, clear to auscultation and percussion. No rales, rhonchi or wheezes noted. No increased work of breathing, no retractions or nasal flaring. Abdomen/GI: Soft, non-tender, with normal bowel sounds. No distension or tympany. No guarding or rebound. No evidence of tenderness throughout. Back: No spinal tenderness. No costovertebral tenderness. Full range of motion. Skin: Warm, dry with normal turgor. Normal color with no rashes, no lesions, and no evidence of cellulitis. Neuro: Awake and alert, GCS 15, oriented to person, place, time, and situation. Cranial nerves II-XII grossly intact. Motor strength 5/5 in all extremities. Sensory grossly intact. Cerebellar exam normal. Normal gait. Psych: Awake, alert, with orientation to person, place and time. Behavior, mood, and affect are within normal limits. 15:38 Musculoskeletal/extremity: Extremities: grossly normal except: noted in the left hip, left gluteal fold, left inner thigh and left upper thigh: decreased ROM, pain. Vital Signs: 14:35 Pulse 113; Resp 18; Temp 98.2; Pulse Ox 98% on R/A; Weight 39.46 kg; Height 5 ft. 2 in. mg2 (157.48 cm); Pain 5/10; 15:25 BP 95 / 52; Pulse 108; Resp 19; Temp 97.7(O); Pulse Ox 100% ; lt1 15:51 BP 120 / 84; Pulse 99; Resp 18; Pulse Ox 94% on R/A; mg2 16:50 BP 110 / 78; Pulse 80; Resp 18; Pulse Ox 98% on 2 lpm NC; mg2 17:55 BP 105 / 75; Pulse 81; Resp 18; Temp 98; Pulse Ox 98% on 2 lpm NC; mg2 14:35 Body Mass Index 15.91 (39.46 kg, 157.48 cm) mg2 [place] Coma Score: 14:40 Eye Response: spontaneous(4). Verbal Response: oriented(5). Motor Response: obeys mg2 commands(6). Total: 15. Trauma Score (Adult): 14:40 Eye Response: spontaneous(1); Verbal Response: oriented(1); Motor Response: obeys mg2 commands(2); Systolic BP: > 89 mm Hg(4); Respiratory Rate: 10 to 29 per min(4); [place] Score: 15; Trauma Score: 12 17:58 Eye Response: spontaneous(1); Verbal Response: oriented(1); Motor Response: obeys mg2 commands(2); Systolic BP: > 89 mm Hg(4); Respiratory Rate: 10 to 29 per min(4); Taj Score: 15; Trauma Score: 12 MDM: 14:26 Patient medically screened. [facility] 15:39 Data reviewed: vital signs, nurses notes, lab test result(s), EKG, radiologic studies, [facility] CT scan, plain films. 02/23 14:28 Order name: Basic Metabolic Panel [facility] 02/23 14:28 Order name: CBC with Diff [facility] 02/23 14:28 Order name: LFT's [facility] 02/23 14:28 Order name: Magnesium [facility] 02/23 14:28 Order name: NT PRO-BNP [facility] 02/23 14:28 Order name: PT-INR [facility] 02/23 14:28 Order name: Troponin (emerg Dept Use Only) [facility] 02/23 14:29 Order name: Urine Culture [facility] 02/23 15:07 Order name: CBC with Automated Diff; Complete Time: 15:24 EDMS 02/23 15:10 Order name: Protime (+INR); Complete Time: 15:24 EDMS 02/23 15:22 Order name: Basic Metabolic Panel; Complete Time: 15:24 EDMS 02/23 15:22 Order name: Liver (Hepatic) Function; Complete Time: 15:24 EDMS 02/23 15:22 Order name: Troponin (Emerg Dept Use Only); Complete Time: 15:24 ED[facility] 02/23 15:22 Order name: NT PRO-BNP; Complete Time: 15:24 [facility] 02/23 14:28 Order name: XRAY Chest (1 view) [facility] 02/23 14:28 Order name: Pelvis XRAY [facility] 02/23 14:28 Order name: Hip Left 2 View XRAY [facility] 02/23 14:28 Order name: Femur Left XRAY [facility] 02/23 15:00 Order name: CT Head C Spine [facility] 02/23 15:22 Order name: Magnesium; Complete Time: 15:24 EDMS 02/23 15:54 Order name: CT; Complete Time: 16:58 EDMS 02/23 15:54 Order name: RAD; Complete Time: 16:58 EDMS 02/23 15:54 Order name: RAD; Complete Time: 16:58 [facility] 02/23 15:54 Order name: RAD; Complete Time: 16:58 [facility] 02/23 15:54 Order name: RAD; Complete Time: 16:58 [facility] 02/23 17:23 Order name: CT; Complete Time: 17:57 [facility] 02/23 17:53 Order name: Urine Dipstick--Ancillary (enter results) 02/23 14:28 Order name: EKG; Complete Time: 14:30 [facility] 02/23 14:28 Order name: Cardiac monitoring; Complete Time: 14:52 [facility] 02/23 14:28 Order name: EKG - Nurse/Tech; Complete Time: 14:52 [facility] 02/23 14:28 Order name: IV Saline Lock; Complete Time: 15:00 [facility] 02/23 14:28 Order name: Labs collected and sent; Complete Time: 15:00 [facility] 02/23 14:28 Order name: O2 Per Protocol; Complete Time: 15:00 [facility] 02/23 14:28 Order name: O2 Sat Monitoring; Complete Time: 15:00 [facility] 02/23 14:29 Order name: Urine Dipstick-Ancillary (obtain specimen); Complete Time: 17:55 [facility] 02/23 17:27 Order name: Patel; Complete Time: 17:54 mg2 Administered Medications: 15:30 Drug: Zofran 4 mg Route: IVP; Site: right antecubital; mg2 16:03 Follow up: Response: No adverse reaction; Marked relief of symptoms mg2 15:31 Drug: NS 0.9% 500 ml Route: IV; Rate: bolus; Site: right antecubital; mg2 16:04 Follow up: Response: No adverse reaction; IV Status: Completed infusion; IV Intake: mg2 500ml 15:31 Drug: morphine 2 mg Route: IVP; Site: right antecubital; mg2 16:03 Follow up: Response: No adverse reaction; Marked relief of symptoms mg2 16:04 Drug: NS 0.9% 1000 ml Route: IV; Rate: 125 ml/hr; Site: right antecubital; mg2 17:55 Follow up: Response: No adverse reaction; IV Status: Order to discontinue infusion; IV mg2 Intake: 300ml 18:01 Not Given (to be given upstairs): Xopenex 2.5 mg Inhalation once ss 18:01 Not Given (to be given upstairs): AtroVENT Aerosol 0.5 mg Inhalation once ss 18:01 Not Given (to be given on second floor): Potassium Effervescent Tablet 25 mEq PO once; ss dissolve in 4 ounces of water or juice Disposition: 02/23/19 15:55 Hospitalization ordered by Araceli Ha for Inpatient Admission. Preliminary diagnosis are Fall due to bumping against object, Displaced fracture of base of neck of left femur. - Bed requested for Telemetry/MedSurg (Inpatient). - Status is Inpatient Admission. ss - Condition is Stable. - Problem is new. - Symptoms have improved. UTI on Admission? No Signatures: Dispatcher [employer] EDMS Марина Bauer Corey, MD MD cha Smirch, Shelby, RN RN ss Dax Young MD MD ma Ran Avila RN RN mg2 Corrections: (The following items were deleted from the chart) 16:46 15:55 Hospitalization Ordered by Araceli Ha MD for Inpatient Admission. Preliminary bd diagnosis is Fall due to bumping against object; Displaced fracture of base of neck of left femur. Bed requested for Telemetry/MedSurg (Inpatient). Status is Inpatient Admission. Condition is Stable. Problem is new. Symptoms have improved. UTI on Admission? No. cesar 17:59 16:46 02/23/2019 15:55 Hospitalization Ordered by Araceli Ha MD for Inpatient mg2 Admission. Preliminary diagnosis is Fall due to bumping against object; Displaced fracture of base of neck of left femur. Bed requested for Telemetry/MedSurg (Inpatient). Status is Inpatient Admission. Condition is Stable. Problem is new. Symptoms have improved. UTI on Admission? No. bd 18:02 18:00 Patel ordered. [facility] ss 18:03 17:59 02/23/2019 15:55 Hospitalization Ordered by Araceli Ha MD for Inpatient ss Admission. Preliminary diagnosis is Fall due to bumping against object; Displaced fracture of base of neck of left femur. Bed requested for Telemetry/MedSurg (Inpatient). Status is Inpatient Admission. Condition is Stable. Problem is new. Symptoms have improved. UTI on Admission? No. mg2
--- NOTE | 2019-02-23 16:00 | EKG ---
Test Date: 2019-02-23 Test Time: 14:41:47 Metalworker: KYLE MEASUREMENT RESULTS: Intervals: Rate: 111 OR: 138 QRSD: 98 QT: 388 QTc: 527 [place]: P: 64 OR: 138 QRS: -35 T: 105 INTERPRETIVE STATEMENTS: Sinus tachycardia Left axis deviation Voltage criteria for left ventricular hypertrophy Nonspecific T wave abnormality Abnormal ECG Compared to ECG 11/14/2018 17:35:19 Left-axis deviation now present Left ventricular hypertrophy now present Sinus rhythm no longer present Atrial premature complex(es) no longer present Myocardial infarct finding no longer present Electronically Signed On 02-23-19 16:00:17 OUTCOMES ANALYST by Bc Resendiz
--- NOTE | 2019-02-23 17:16 | RAD REPORT ---
EXAM DESCRIPTION: CT - Hip Left Wo Con - 02/23/2019 5:00 pm CLINICAL HISTORY: Left femoral fracture COMPARISON: February 23, 2019 x-ray x-ray TECHNIQUE: Computed axial tomography left hip obtained with coronal and sagittal reconstruction. All CT scans are performed using dose optimization technique as appropriate and may include automated exposure control or mA/KV adjustment according to patient size. FINDINGS: A subcapital left femoral fracture is present which is impacted. Mild to moderate displac ement is present. Fracture line extends into the femoral neck. No dislocation IMPRESSION: Left femoral fracture
[2019-02-23] MEDS ORDERED: ACETAMINOPHEN 500 MG TAB PO PRN (18:09)
[2019-02-23] MEDS ORDERED: MORPHINE 2 MG/ML SYR IV PRN (18:09)
[2019-02-23] MEDS ORDERED: HYDROCODONE/APAP 7.5/325 MG TAB PO PRN (18:09)
[2019-02-23] MEDS ORDERED: ONDANSETRON 4 MG/2 ML VIAL IV PRN (18:09)
[2019-02-23 18:13] VITALS: BMI 15.7
[2019-02-23] MEDS ORDERED: LEVALBUTEROL 1.25 MG/3 ML NEB NEB ONE (18:13)
[2019-02-23] MEDS ORDERED: IPRATROPIUM BROM 0.5MG/2.5ML NEB ONE (18:13)
[2019-02-23] MEDS ORDERED: POTASSIUM 25 MEQ EFFERV TAB PO ONE ×2 (18:13→20:00)
[2019-02-23] MEDS: NA CHLORIDE 0.9% 1,000 ML IV SCH (19:21)
[2019-02-23] MEDS ORDERED: MAGNESIUM SULFATE 1 gm IVPB 1 GM/100 ML BAG IV ONE (20:00)
--- NOTE | 2019-02-24 02:34 | HP ---
Date of Admission: 02/23/2019 Code Status: Full. Consultants: Dr. Garcia with Orthopedic Surgery, Dr. Resendiz with Cardiology. Chief Complaint: Left hip pain. History Of Present Illness: Patient is a 78-year-old female with past medical history of systolic co ngestive heart failure, cardiomyopathy, was on LifeVest for several months, was offered AICD and pace maker, however, refused. Has history of atrial fibrillation, on Eliquis; COPD; history of breast can cer. Continues to smoke, currently on hospice care with [facility], comes in after mechanical fall. Rupa t landed on the right side; however, chair fell on her and she had pain on the left side as well. Sy mptoms are constant, moderate, progressively worsening. There was no loss of consciousness or seizur e-type episode. Her workup revealed normal WBC count. She had a low potassium. Imaging studies rev ealed left subcapital fracture. Patient was then referred for admission. Dr. Garcia with Orthopedic S urgery was consulted by the ER. Patient is on blood thinners, which will be held. Imaging studies i ncluding the head and CT cervical spine did not show any acute abnormalities or fractures. Past Medical History: COPD; depression with anxiety; history of breast cancer; neuropathy; GERD; cor onary artery disease, status post stent; systolic congestive heart failure with very low ejection fra ction; atrial fibrillation, on chronic anticoagulation therapy; tobacco use; and former alcohol use. Surgical History: Cataract surgery bilaterally, cholecystectomy, appendectomy, right mastectomy, car diac stent. Allergies: TO PENICILLIN. Medications: List reviewed. Social History: Patient continues to smoke daily. Former alcohol use. No illicit drug use. Lives at home. Family History: Mother had dementia and Alzheimer's. Review of Systems: Ten-point system reviewed, negative except as per HPI. Physical Examination: Vital Signs: Pulse 113, respirations 18, temperature 98.2, O2 of 98% on room air, blood pressure 95/ 52. BMI 15.9. General: Awake, alert, oriented x3, ill-appearing, cachectic, frail, older than stated age female. HEENT: Normocephalic, atraumatic. PERRLA. EOMI. Moist mucous membranes. Oropharynx is clear. Po or dentition. Conjunctivae anicteric. Neck: Supple. No JVD. Trachea midline. CV: S1, S2, irregularly irregular. Peripheral pulses weak, 1+. Respiratory: Moving air well bilaterally. No wheezing or stridor. No use of accessory muscles. Gastrointestinal: Abdomen is soft, nontender, nondistended. Positive bowel sounds. No guarding or rigidity. Extremities: No clubbing, cyanosis, or edema. No calf tenderness. Neurological: Cranial nerves 2 through 12 intact grossly. No focal neurological deficit. Musculoskeletal: Limited range of motion of the left hip due to pain. Skin: Abrasions on both knees from the fall. Psych: Mood is okay. Affect is full. Insight and judgment are good. Laboratory Data: Sodium 136, potassium 3.1, chloride 97, CO2 of 38, BUN 12, creatinine 1.24, glucose 110, calcium 8.7, magnesium 1.8. Troponin less than 0.02. BNP 5000. Albumin 3.2. INR 1.08. WBC 7.7, H and H 10.9 and 31.6, platelets 375, neutrophils 59%. Imaging Studies: CT scan of the left hip shows left femoral fracture, impacted [id number] disp lacement. Head CT, cervical spine shows no acute intracranial abnormality, cervical fracture not vis ualized. Pelvis and hip x-ray shows impacted mild to moderately displaced subcapital transcervical f emoral fracture. No dislocation. Chest x-ray, lungs appear clear of acute infiltrate. Patient has upper lobe vessels prominent, indicative of pulmonary venous hypertension. EKG shows sinus tachycard ia, rate of 111, voltage criteria for left ventricular hypertrophy. Nonspecific T-wave abnormality. Assessment: A 78-year-old female with. 1.Left hip fracture, displaced subcapital initial encounter. Patient will be seen by Dr. Garcia, [facility] opedics, who needs to wait for Eliquis to be held prior to surgery. We will need cardiac clearance. Patient has significant cardiomyopathy and cardiac issues. 2.Coronary artery disease, status post stent. 3.Systolic congestive heart failure. We will resume home medications, chronic. 4.Atrial fibrillation, on Eliquis. We will continue to hold. Continue with rate control. 5.Chronic obstructive pulmonary disease, chronic bronchitis. 6.Pulmonary venous hypertension. 7.Depression with anxiety. We will resume home medications. 8.History of breast cancer. 9.Neuropathy. 10.Gastroesophageal reflux disease without esophagitis. 11.Nicotine dependence. Cigarette smoking. Counseled. 12.Deep vein thrombosis prophylaxis addressed. Plan: Admit patient to Med-Surg, place as inpatient. Length of stay, greater than 2 midnights. HUMBLE Voice ID: [id number]
--- NOTE | 2019-02-24 03:04 | CON ---
Reason For Consultation: Left hip pain. History Of Present Illness: Dominique is a 78-year-old female who presented to the ER after sustaining a fall onto her left side with subsequent pain to her left hip and inability to bear weight. The pat pérez was brought to the emergency room. She had x-rays, which demonstrated a valgus impacted left fe moral neck fracture. She denies any other musculoskeletal complaints at this time. She does have hi story of coronary artery disease and does take Plavix and Eliquis. Review of Systems: As above, otherwise negative. Past Medical History: Includes anxiety, breast cancer, CAD, COPD, depression, neuropathy. Past Surgical History: Includes appendectomy and right mastectomy. Home Medications: Aspirin, Plavix, Cymbalta, digoxin, Eliquis, folic acid, furosemide, lisinopril, m elatonin, metoprolol, spironolactone. Allergies: PENICILLIN. Social History: Reports tobacco, smoking half pack per day. Denies alcohol or drug use. Physical Examination: General: No apparent distress. HEENT: Normocephalic, atraumatic. Neck: Supple. Cardiovascular: Brisk cap refill to all digits. Chest: Nonlabored breathing. Abdomen: Nondistended. Psychiatric: Responsive to exam. Musculoskeletal: Bilateral upper extremities, functional range of motion without pain. No gross def ormities. No obvious dislocations. Left lower extremity pain with range of motion of her left hip. No tenderness to palpation of the knee, tibia, or ankle. Positive firing of EHL, FHL, gastroc soleu s complex, tibialis anterior. Sensation grossly intact to the dorsal and plantar surface of her left foot. Tenderness to palpation of the left hip. Right lower extremity, functional range of motion w ithout pain. No gross deformities. No obvious dislocations. X-rays: X-rays and CT scan of the left hip demonstrate a valgus impacted left femoral neck fracture. Assessment And Plan: Ms. Mackenzie is a 78-year-old female with a left femoral neck fracture. I discus sed with the patient at length risks and benefits associated with operative and nonoperative treatmen t. She expressed understanding and elected to proceed with operative treatment. Patient does take E liquis and will wait 48 hours from the last dose prior to surgery. We will plan to proceed with CRPP of her left hip. I discussed with the patient risks including nonunion, especially with a history o f tobacco use and the need for smoking cessation. She expressed understanding. We will tentatively plan for surgery on Saturday. ALPHONSO/JUSTINE Voice ID: [id number] Report ID: [id number]
[2019-02-24 05:25] LABS: Absolute Lymphocytes (CBC) 1.9 K/uL (0.7-4.9); Basophils % 0.7 % (0-1.3); Hematocrit 27.1 % (36.0-45.0); MPV 6.9 fL (7.6-11.3); RBC Red Blood Cell Count 2.89 M/uL (3.86-4.86)
[2019-02-24 05:36] LABS: Albumin 2.7 g/dL (3.4-5.0); Bilirubin Total 0.7 mg/dL (0.2-1.0); Magnesium 2.3 mg/dL (1.8-2.4); Potassium 3.7 mmol/L (3.5-5.1); Protein, Total 6.2 g/dL (6.4-8.2)
[2019-02-24] MEDS ORDERED: MELATONIN 5 MG TABLET PO PRN (06:53)
[2019-02-24] MEDS ORDERED: ALPRAZOLAM 0.25 MG TABLET PO PRN (06:53)
[2019-02-24] MEDS: NA CHLORIDE 0.9% 1,000 ML IV SCH ×2 (08:51→20:37)
[2019-02-24] MEDS ORDERED: POTASSIUM 25 MEQ EFFERV TAB PO ONE (09:00)
--- NOTE | 2019-02-24 13:53 | ECHO ---
HEIGHT: 5 ft 2 in WEIGHT: 86 lb 3.2 oz DATE OF STUDY: 02/24/[address]: Hans Barbour MD 2-DIMENSIONAL: YES M.MODE: YES DOPPLER: YES COLOR FLOW: YES TDS: NO PORTABLE: NO DEFINITY: NO BUBBLE STUDY: NO DIAGNOSIS: CONGESTIVE HEART FAILURE CARDIAC HISTORY: CATHERIZATION: NO SURGERY: NO PROSTHETIC VALVE: NO PACEMAKER: NO MEASUREMENTS (cm) DIASTOLIC (NORMALS) SYSTOLIC (NORMALS) IVSd 0.8 (0.6-1.2) LA Diam 3.0 (1.9-4.0) LVEF 17% LVIDd 5.3 (3.5-5.7) LVIDs 4.9 (2.0-3.5) %FS 8% LVPWd 0.8 (0.6-1.2) Ao Diam 2.5 (2.0-3.7) 2 DIMENSIONAL ASSESSMENT: RIGHT ATRIUM: NORMAL LEFT ATRIUM: NORMAL RIGHT VENTRICLE: NORMAL LEFT VENTRICLE: NORMAL SIZE TRICUSPID VALVE: NORMAL MITRAL VALVE: NORMAL PULMONIC VALVE: NORMAL AORTIC VALVE: NORMAL PERICARDIAL EFFUSION: NONE AORTIC ROOT: NORMAL LEFT VENTRICULAR WALL MOTION: SEVERE GLOBAL HYPOKINESIS. DOPPLER/COLOR FLOW: MILD MITRAL AND TRICUSPID REGURGITATION. COMMENTS: SEVERE GLOBAL HYPOKINESIS. LEFT VENTRICULAR EJECTION FRACTION 17%. NO CHANGE SINCE 11/2018. MILD MITRAL AND TRICUSPID REGURGITATION. TECHNOLOGIST: Jesus GUEVARA
--- NOTE | 2019-02-24 16:31 | PN ---
Date of Progress Note: 02/24/2019 Subjective: The patient seen and examined, chart reviewed, and case discussed with RN and Dr. Barbour as well as Dr. Garcia. Patient is high risk for surgery due to her cardiomyopathy and low ejection fraction. We will need to have repeat echocardiogram prior to cardiac clearance. The patient states that her pain is well controlled. Medications: List reviewed. Physical Examination: Vital Signs: Temperature 98.5, heart rate 88, blood pressure 101/52, respirations 17, O2 of 95% on 2 L via nasal cannula. General: Awake, alert, oriented x3. Elderly female, ill-appearing, frail, cachectic, older than stated age. CV: S1, S2. Regular rate and rhythm. Peripheral pulses weak. Respiratory: Moving air well bilaterally. No wheezing or stridor. Gastrointestinal: Abdomen is soft, nontender, nondistended. Positive bowel sounds. Extremities: No clubbing, cyanosis, or edema. Neurologic: Nonfocal. Musculoskeletal: Left hip decreased range of motion, pain, tenderness to palpation, shortened, rotated. Laboratory Data: Sodium 138, potassium 3.7, chloride 101, CO2 of 38, BUN 11, creatinine 1.08, glucose 107, calcium 8.1. Magnesium 2.3, albumin 2.7. WBC 7.3 , H and H 9.3 and 27.1, platelets 291. Urine culture, no growth. Assessment And Plan: A 78-year-old female with: 1. Left hip fracture, displaced subcapital fracture, initial encounter. Appreciate Dr. Garcia's input. Plan is for tentative surgery on Saturday, however, patient is very high risk. We will need to repeat echocardiogram. Dr. Barbour on board for possible cardiac clearance. 2. Coronary artery disease, tetlin artery and tetlin heart, status post stent without angina, stable. 3. Systolic congestive heart failure, very low ejection fraction. We will repeat echocardiogram and continue with home medications. Heart failure is chronic. Monitor I's and O's, free fluid restriction. 4. Atrial fibrillation, on Eliquis, currently on hold due to possible surgery. Continue rate control. 5. Chronic obstructive pulmonary disease, chronic bronchitis. Continue with nebulizer treatments p.r.n. 6. Pulmonary venous hypertension. 7. Major depressive disorder with anxiety. Continue home medications. 8. History of breast cancer. 9. Neuropathy, stable. 10. Gastroesophageal reflux disease without esophagitis. 11. Nicotine dependence with cigarette smoking, counseled. 12. Deep venous thrombosis prophylaxis. Hold anticoagulation. ADDENDUM: Spoke with Dr. Barbour and Dr. Garcia. Echo shows EF is still low at 17% . After discussion with consultants, patient is deemed too high risk for surgery. Family updated. Patient and family wish to return home w hospice care. Spoke w Dr. 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
--- NOTE | 2019-02-24 16:51 | P.PN ---
Subjective Date of Service: 02/24/19 Chief Complaint: left hip pain Subjective: No new changes pain controlled; had repeat echo with Dr. Barbour today Physical Examination - Vital Signs Temperature: 98.9 F Blood Pressure: 103/50 Pulse: 103 Respirations: 18 Pulse Ox (%): 91 - Physical Exam General: Alert, In no apparent distress Musculoskeletal: Other (LLE: pain with ROM of the left hip; NVI distally) Assessment And Plan - Plan Dominique is a 78 yo female with a left femoral neck fracture with multiple medical comorbidities including CAD, CHF, COPD -discussed case at length with Dr. Ha; patient is at a very high surgical risk including perioperative mortality secondary to her multiple medical comorbidities -repeat echo demonstrated EF of 17% -discussed with patient and family at length and they would like to proceed with nonoperative treatment and to return home with hospice given high surgical risk -discussed with patient and daughter that fracture may displace and go on to nonunion; fracture is a stable fracture pattern and may heal if no further displacement occurs -recommend transfers only with [facility] LLE -may f/u in my clinic as needed
--- NOTE | 2019-02-24 16:52 | CON ---
Date of Consultation: 02/24/2019 Reason For Consultation: Cardiac clearance for hip surgery and history of congestive heart failure. History Of Present Illness: Ms. Mackenzie is 78, has a history of congestive heart failure in November 2018, was found to have an ejection fraction 20%. At that time, she had a history of coronary arter y disease status post stent. She was getting a LifeVest. She is followed up by Cardiology in [facility]. She has atrial fibrillation as well on metoprolol and Eliquis, COPD, anxiety, anemia, history of breast cancer that is being cured, history of hypomagnesemia. She came in with left hip fracture aft er a fall. No syncope. No chest pain. Denied PND, orthopnea, pedal edema, palpitation. Past Medical History: As stated above. Allergies: SHE IS ALLERGIC TO PENICILLIN. Review of Systems: Negative. Social History: Negative. Family History: Negative. Medications: At home include metoprolol, Eliquis, and Lasix. Physical Examination: General: She was in no acute distress. Vital Signs: Stable. She was in atrial fibrillation, rate controlled. HEENT: Negative. Neck: Supple. No bruit. Chest: Clear to auscultation and percussion. Cardiac: Revealed atrial fibrillation. No murmurs, gallops, or rubs. Abdomen: Benign. Extremities: Revealed no clubbing, cyanosis, or edema. Skin: Dry and intact. Neurologic: She was nonfocal. Impression And Plan: Ms. Mackenzie has ejection fraction of 20% three months ago. We will repeat her e chocardiogram hoping no medication has improved. She is not on any LifeVest anymore. She is on the appropriate medication, but if her echocardiogram remains low, then she is at very high risk for jovan operative mortality. If surgery is done, she needs to be observed in the ICU postoperatively to [facility] for arrhythmia and CHF, and definitely watch her I's and O's very carefully. For now, Eliquis has been held and beta-bree discontinued. Her other issues including CAD, COPD, anxiety, anemia are s table. She has had breast cancer in the past that has been cured. I will continue to follow her. W e will see what her echo shows. I will discuss the case further with Dr. Ha and Dr. Garcia. NB/MODL Voice ID: [id number] Report ID: [id number]
[2019-02-24] MEDS ORDERED: ENOXAPARIN 30 MG/0.3 ML SQ SCH (17:00)
[2019-02-24] MEDS: APIXABAN 5 MG TABLET PO SCH (20:37)
[2019-02-25 04:43] LABS: Absolute Lymphocytes (CBC) 1.8 K/uL (0.7-4.9); Basophils % 0.9 % (0-1.3); Hematocrit 25.1 % (36.0-45.0); Lymphocytes % 24.2 % (15.3-44.8); RBC Red Blood Cell Count 2.66 M/uL (3.86-4.86)
[2019-02-25 05:01] LABS: Potassium 3.9 mmol/L (3.5-5.1)
[2019-02-25 08:37] VITALS: O2SAT 91
--- NOTE | 2019-02-25 08:50 | P.DS ---
Admission Date: 02/23/19 Discharge Date: 02/25/19 Primary Care Provider: unknown Disposition: HOSPICE-HOME Discharge Condition: FAIR Reason for Admission: left hip pain Consultations: Orthopedics-Dr. Garcia Cardiology-Dr. Barbour Procedures: CT hip: FINDINGS: A subcapital left femoral fracture is present which is impacted. Mild to moderate displacement is present. Fracture line extends into the femoral neck. No dislocation IMPRESSION: Left femoral fracture CT head neck: FINDINGS: An intracranial bleed is not seen. Mild low-density areas within periventricular, deep subcortical white matter likely ischemic changes secondary to small vessel disease Cerebral atrophy is noted The ventricles are normal in caliber. An extra-axial fluid collection is not noted.Fluid within the visualized sinuses and mastoids is not seen A cervical fracture is not visualized. No dislocation is noted. Mild posterior subluxation C3 on C4-C4 on C5 without significant change. Spondylosis involves the cervical spine resulting in spinal stenosis IMPRESSION: No acute intracranial abnormality is seen. A cervical fracture is not visualized. Chest x-ray: COMPARISON: November 2018 FINDINGS: The lungs appear clear of acute infiltrate. The heart is normal size Upper lobe vessels are prominent indicative of pulmonary venous hypertension ECHO: Ejection fraction 17% LEFT VENTRICULAR WALL MOTION: SEVERE GLOBAL HYPOKINESIS. DOPPLER/COLOR FLOW: MILD MITRAL AND TRICUSPID REGURGITATION. COMMENTS: SEVERE GLOBAL HYPOKINESIS. LEFT VENTRICULAR EJECTION FRACTION 17% . NO CHANGE SINCE 11/2018. MILD MITRAL AND TRICUSPID REGURGITATION. Medical Problem List: Left displaced subcapital hip fracture after mechanical fall CAD with prior stent Chronic systolic CHF with ejection fraction 17% Atrial fibrillation on chronic anti coagulation therapy COPD Pulmonary venous hypertension Major depression with anxiety History of breast cancer Chronic pain with neuropathy GERD Tobacco abuse Moderate protein malnutrition Brief History of Present Illness: 78-year-old female with multiple medical problems including severe systolic congestive heart failure, cardiomyopathy, atrial fibrillation on chronic anti coalition therapy, COPD, history of breast cancer and tobacco abuse. Patient has been on hospice. She apparently had a mechanical fall at home. She landed on the right side but also had a chair fall on her. She had constant pain to the left side. Patient came to the ER for further evaluation. Patient found to have left subcapital hip fracture. Patient was admitted for further evaluation. Hospital Course: Patient had mechanical fall at home. She is found to have a left displaced subcapital hip fracture. Patient was admitted for further evaluation. Patient with underlying severe CAD with prior stent, chronic systolic CHF with ejection fraction of 17%, atrial fibrillation on chronic anti coagulation therapy, COPD, major depression, and GERD. Orthopedics and Cardiology were consulted to further evaluate. Surgery was considered. After multiple discussion with cardiology and orthopedics, it was determined that surgery was too high risk. This was addressed with patient and family. Patient and family wishes to return to hospice at home without surgery. Arrangements have been made. Patient will likely remain bed-bound. Patient will return to hospice at home at discharge. Patient may continue with current home medications. Further adjustment in medication can be done by hospice. Arrangements for hospital bed in place. Comfort measures to be continued. Social work will help in discharge process to continue with hospice at home. [facility] will be arranged. Vital Signs/Physical Exam: Temp Pulse Resp BP Pulse Ox 99.1 F 105 H 18 114/56 L 93 02/25/19 04:00 02/25/19 04:00 02/25/19 04:00 02/25/19 04:00 02/25/19 04:00 General: Alert, In no apparent distress HEENT: Atraumatic Neck: Supple Respiratory: Expiratory wheezes Cardiovascular: Regular rate/rhythm Gastrointestinal: Normal bowel sounds, No masses, No rebound, No guarding Neurological: Normal affect, Other (Muscle wasting to the upper and lower extremities) Laboratory Data at Discharge: WBC 7.4 K/uL (4.3-10.9) 02/25/19 04:11 Hgb 8.7 g/dL (12.0-15.0) L 02/25/19 04:11 Hct 25.1 % (36.0-45.0) L 02/25/19 04:11 Plt Count 262 K/uL (152-406) 02/25/19 04:11 PT 12.7 SECONDS (9.5-12.5) H 02/23/19 14:45 INR 1.08 02/23/19 14:45 APTT 32.4 SECONDS (24.3-36.9) 02/24/19 08:08 Sodium 141 mmol/L (136-145) 02/25/19 04:11 Potassium 3.9 mmol/L (3.5-5.1) 02/25/19 04:11 BUN 9 mg/dL (7-18) 02/25/19 04:11 Creatinine 0.85 mg/dL (0.55-1.3) 02/25/19 04:11 Glucose 92 mg/dL (74-106) 02/25/19 04:11 Magnesium 2.3 mg/dL (1.8-2.4) D 02/24/19 04:57 Total Bilirubin 0.7 mg/dL (0.2-1.0) 02/24/19 04:57 AST 25 U/L (15-37) 02/24/19 04:57 ALT 16 U/L (12-78) 02/24/19 04:57 Alkaline Phosphatase 48 U/L (45-117) 02/24/19 04:57 Patient Discharge Instructions: 1. Patient will return to home with hospice in place. 2. Social work to help with hospital bed and [id number] DNR. 3. Patient may continue with prior home medications. Further adjustment in medication can be done by hospice. Diet: AHA Activity: Bedrest Time spent managing pt's care (in minutes): 55
[2019-02-25] MEDS: APIXABAN 5 MG TABLET PO SCH (09:11)
[2019-02-25 09:18] VITALS: BP 98/53; TEMP 98.4
[2019-03-06 16:58] LABS: Urine Blood NEGATIVE (NEG); Urine Glucose NEGATIVE (NEG); Urine Protein NEGATIVE (NEG)
== END 2019-02-25 12:07 | disposition hospice, home (50) | DRG 536 ==
LOC: ER 14:24 → ERHOLD 16:23 → 2ND 17:32
PROVIDERS: ADMIT Family Medicine; ATTEND Family Medicine
DX: S72.012A Unspecified intracapsular fracture of left femur, initial encounter for closed fracture (principal); I48.20 Chronic atrial fibrillation, unspecified; I50.22 Chronic systolic (congestive) heart failure; E44.0 Moderate protein-calorie malnutrition; Z68.1 Body mass index [BMI] 19.9 or less, adult; J44.9 Chronic obstructive pulmonary disease, unspecified; K21.9 Gastro-esophageal reflux disease without esophagitis; I25.10 Atherosclerotic heart disease of native coronary artery without angina pectoris; F17.210 Nicotine dependence, cigarettes, uncomplicated; G62.9 Polyneuropathy, unspecified; F41.8 Other specified anxiety disorders; F32.9 Major depressive disorder, single episode, unspecified; I27.20 Pulmonary hypertension, unspecified; Z51.5 Encounter for palliative care; W19.XXXA Unspecified fall, initial encounter; Y92.9 Unspecified place or not applicable; Z79.01 Long term (current) use of anticoagulants
CPT/HCPCS: 36415; 51702; 70450; 71045; 72125; 72170; 73700; 80048; 80053; 80076; 81003; 83735; 83880; 84132; 84484; 85025; 85610; 85730; 87086; 87088; 93005; 93306; 94760; 96361; 96374; 96375; 99285; J2270; J2405; J3475; J7030